=== PATIENT | female | born 1955 | race Caucasian/White ===

== ENCOUNTER 2016-11-22 06:31 | Outpatient (CLI) | payer MEDICAID, OTHER | END 2016-11-22 23:59 | DX: I10 Essential (primary) hypertension (principal); E03.9 Hypothyroidism, unspecified ==

== ENCOUNTER 2018-09-12 13:18 | Outpatient (CLI) | payer MEDICAID ==
[2018-09-12 14:17] LABS: BASOPHILS # (AUTO) 0.1 10^3/uL (0.0-0.1); BASOPHILS % (AUTO) 1.6 %; EOSINOPHILS % (AUTO) 0.4 %; HGB - HEMOGLOBIN 8.2 g/dL (12.0-16.0); LYMPHOCYTES # (AUTO) 1.2 10^3/uL (1.5-3.5); LYMPHOCYTES % (AUTO) 19.7 %; MEAN CORPUSCULAR HEMOGLOBIN 19.8 pg (27.0-31.0); MEAN CORPUSCULAR HGB CONC 29.7 g/dL (32.0-36.0); MEAN CORPUSCULAR VOLUME 66.7 fL (81.0-99.0); MEAN PLATELET VOLUME 8.3 fL (7.9-10.8); MONOCYTES # (AUTO) 0.4 10^3/uL (0.0-1.0); MONOCYTES % (AUTO) 5.8 %; NEUTROPHILS # (AUTO) 4.5 10^3/uL (1.5-6.6); NEUTROPHILS % (AUTO) 72.5 %; PLT - PLATELET COUNT 342 10^3/uL (130-450); RED BLOOD COUNT 4.15 10^6/uL (4.20-5.40); RED CELL DISTRIBUTION WIDTH 23.1 % (12.0-15.0); WHITE BLOOD COUNT 6.1 x10^3/uL (4.8-10.8)
[2018-09-12 14:32] LABS: ALBUMIN 4.1 g/dL (3.2-5.5); ALKALINE PHOSPHATASE 122 IU/L (42-121); AST ASPARTATE AMINOTRANSFERASE 28 IU/L (10-42); BUN - BLOOD UREA NITROGEN 27 mg/dL (6-20); CALCIUM 9.3 mg/dL (8.5-10.3); CARBON DIOXIDE - CO2 15 mmol/L (21-32); CHLORIDE 100 mmol/L (101-111); CREATININE 0.9 mg/dL (0.4-1.0); GFR - MDRD 63 (>89); GLUCOSE 95 mg/dL (70-100); SODIUM 133 mmol/L (135-145)
[2018-09-12 14:59] LABS: PLATELET ESTIMATE, MANUAL NORMAL (130-450,000) (NORMAL)
[2018-09-12 15:23] LABS: ALBUMIN/GLOBULIN RATIO 1.3 (1.0-2.2); ALT ALANINE AMINOTRANSFERASE 15 IU/L (10-60); CHOL/HDL RATIO 3.4 (<4.4); CHOLESTEROL 182 mg/dL; HDL CHOLESTEROL 53 mg/dL; TOTAL PROTEIN 7.3 g/dL (6.7-8.2)
[2018-09-12 15:48] LABS: LDL CHOLESTEROL,CALCULATED 105 mg/dL; VLDL CHOLESTEROL 24 mg/dL
== END 2018-09-12 13:19 | disposition home or self-care (01) ==
LOC: LAB 13:18
PROVIDERS: ATTEND Family Medicine
DX: I10 Essential (primary) hypertension (principal); E03.9 Hypothyroidism, unspecified
CPT/HCPCS: 36415; 80053; 80061; 83721; 84443; 85025

== ENCOUNTER 2018-09-30 12:03 | Outpatient (CLI) | payer MEDICAID ==
[2018-09-30] MEDS ORDERED: IOVERSOL 320 100 ML VIAL IVP ONE (12:12)
[2018-09-30] MEDS ORDERED: IOVERSOL 320 50 ML VIAL ONE (12:12)
[2018-09-30] MEDS: IOVERSOL 320 100 ML VIAL IVP ONE (15:00)
[2018-09-30] MEDS: IOVERSOL 320 50 ML VIAL PO ONE (15:01)
--- NOTE | 2018-09-30 15:08 | CT Report ---
Reason: ABDOMINAL MASS, RLQ, WILMS' TUMOR HX Procedure Date: 09/30/2018 Accession Number: [id number] / [id number] Procedure: CT - Abdomen/Pelvis W/ CPT Code: FULL RESULT: EXAM: CT ABDOMEN AND PELVIS EXAM DATE: 09/30/2018 01:56 PM. CLINICAL HISTORY: Abdominal mass, right lower quadrant, Wilms tumor history. COMPARISONS: None. TECHNIQUE: Routine helical CT imaging was performed through the abdomen and pelvis. IV contrast: 90 ML Optiray 320. Enteric contrast: Yes. Reconstructions: Coronal and sagittal. In accordance with CT protocol optimization, one or more of the following dose reduction techniques were utilized for this exam: automated exposure control, adjustment of mA and/or KV based on patient size, or use of iterative reconstructive technique. FINDINGS: Lung Bases: Unremarkable. Liver: There are innumerable hypodense masses in the liver, for example the largest mass in the right lobe measures 2.5 x 2.0 cm on image 20 series 3, and the dominant left lobe of the liver mass measures 2.1 x 1.5 cm on image 9 series 3. Gallbladder/Bile Ducts: Mild intrahepatic biliary prominence. Gallbladder is unremarkable. Spleen: Normal. Pancreas: Normal. Adrenal Glands: Normal. Kidneys: The right kidney is surgically absent. The left kidney contains a 1.0 and a 0.3 cm nonobstructing calculus. Peritoneal Cavity/Bowel: There is intussusception of an approximately 12 cm segment of likely transverse colon with the appearance of a mass as the lead point; the mass component is difficult to measure. A 1.2 x 1.2 cm enhancing pericolonic nodule trapped within the intussusception on image 12 series 5 is suspicious. There is no free fluid or free air. Pelvic Organs: The bladder is within normal limits. Vasculature: Mild atherosclerotic disease without aneurysm. Bones: Severe levoconvex scoliosis of the lumbar spine centered about L2. A dextroconvex thoracic scoliosis is not fully imaged. No aggressive osseous lesions are identified. Other: None. IMPRESSION: Long segment colonic intussusception likely due to underlying mass as a lead point with innumerable hepatic metastases. RADIA The above findings with colonic intussusception likely due to mass with hepatic metastases were discussed with Janessa Link by Dr. Tom William at 02:53 PM hrs on 09/30/2018.
== END 2018-09-30 12:04 | disposition home or self-care (01) ==
LOC: DI 12:03
PROVIDERS: ATTEND Family Medicine
DX: C78.7 Secondary malignant neoplasm of liver and intrahepatic bile duct (principal); K56.1 Intussusception; C64.9 Malignant neoplasm of unspecified kidney, except renal pelvis; D64.9 Anemia, unspecified
CPT/HCPCS: 74177; Q9967

== ENCOUNTER 2018-10-14 10:46 | Inpatient (IN) | payer MEDICAID ==
--- NOTE | 2018-10-14 11:52 | ED Physician Documentation ---
PD HPI NVD - Stated complaint Stated Complaint: V/D - Chief complaint Chief Complaint: Abd Pain - History obtained from History obtained from: Patient - History of Present Illness Timing - onset: How many days ago (4) Timing - duration: Days (4) Timing - details: Gradual onset (She had bowel surgery last week with bowel resection for colon cancer. She is discharged from the hospital on Saturday which is 4 days ago. Since discharge she has had a feeling of bloating of the abdomen and fullness with nausea and episodic vomiting. She states she has had some soft stools at times. She did not notice any blood in her vomit or her diarrhea. She is having increasing abdominal fullness. She denies any fever. She called the surgery office and was directed to the ER. Surgery was done by Dr. Yip.), Still present Associated symptoms: Abdominal pain, Loss of appetite. No: Fever, Chest pain, Hematemesis, Melena, Near syncope / syncope, Dysuria Contributing factors: No: Sick contact, Bad food Improved by: Vomiting Worsened by: Eating Recently seen: Surgery (bowel resection last week for colon cancer. Discharged 4 days ago.) Review of Systems Constitutional: reports: Myalgias. denies: Fever, Chills Nose: denies: Rhinorrhea / runny nose, Congestion Throat: denies: Sore throat Respiratory: denies: Cough GI: reports: Abdominal Pain, Abdominal Swelling, Nausea, Vomiting, Diarrhea (some soft stools since discharge.). denies: Constipation, Hematemesis, Bloody / black stool : denies: Dysuria, Frequency Skin: denies: Rash Neurologic: reports: Generalized weakness. denies: Focal weakness, Numbness, Near syncope PD PAST MEDICAL HISTORY - Past Medical History Cardiovascular: Murmur Respiratory: None Neuro: None Endocrine/Autoimmune: None GI: Other (IBS) : Other (hx of Wilms Tumor) HEENT: None Psych: Anxiety, Claustrophobia Musculoskeletal: Scoliosis Derm: None - Past Surgical History General: Appendectomy, Other - Present Medications Home Medications: Ambulatory Orders Medication Instructions Recorded Confirmed Aspirin [Aspirin EC] 81 mg PO DAILY #30 tablet. 10/10/18 10/14/18 Cyclobenzaprine [Flexeril] 10 mg PO TID PRN #90 tablet 10/10/18 10/14/18 Ferrous Sulfate 325 mg PO BID #60 tablet 10/10/18 10/14/18 Ibuprofen [Motrin] 600 mg PO Q6HR PRN #40 tablet 10/10/18 10/14/18 Loratadine 10 mg PO DAILY PRN #30 capsule 10/10/18 10/14/18 Pantoprazole [Protonix] 40 mg PO QDAC #30 tablet 10/10/18 10/14/18 Potassium Chloride [K-Dur] 20 meq PO DAILYWM #30 tablet 10/10/18 10/14/18 - Allergies Allergies/Adverse Reactions: Allergies Allergy/AdvReac Type Severity Reaction Status Date / Time Sulfa (Sulfonamide Allergy Rash Verified 10/14/18 10:58 Antibiotics) - Social History Does the pt smoke?: No Smoking Status: Former smoker - POLST Patient has POLST: No POLST Status: Full Code PD ED PE NORMAL - Vitals Vital signs reviewed: Yes - General General: Alert and oriented X 3, Well developed/nourished, Other (appears uncomfortable with pain. ) - HEENT HEENT: EOMI (nonicteric), Ears normal, Pharynx benign - Neck Neck: Supple, no meningeal sign, No adenopathy, No JVD - Cardiac Cardiac: RRR (tachycardic), No murmur - Respiratory Respiratory: Clear bilaterally - Abdomen Abdomen: Soft, Other (mild to moderate distension mid abd. Dullness to percussion. Generally tender but most lower abd. ). No: Normal bowel sounds (diminished) - Female Female : Deferred - Rectal Rectal: Deferred - Back Back: No CVA TTP - Derm Derm: Normal color, Warm and dry - Extremities Extremities: No tenderness to palpate, Normal ROM s pain, No edema, No calf tenderness / cord - Neuro Neuro: Alert and oriented X 3, No motor deficit, Normal speech Results - Vitals Vitals: Vital Signs - 24 hr 10/14/18 10/14/18 10:53 15:02 Temperature 36.7 C Heart Rate 106 H 84 Respiratory 18 12 Rate Blood Pressure 159/75 H 183/102 H O2 Saturation 98 100 Oxygen O2 Source Room air - Labs Labs: Laboratory Tests 10/14/18 10/14/18 13:10 13:39 WBC 12.1 H RBC 4.34 Hgb 11.1 L Hct 33.7 L MCV 77.5 L MCH 25.5 L MCHC 32.9 RDW 29.5 H Plt Count 200 MPV 8.5 Neut # (Auto) Not Reportable Lymph # (Auto) Not Reportable [place] # (Auto) Not Reportable Eos # (Auto) Not Reportable Baso # (Auto) Not Reportable Absolute Nucleated RBC Not Reportable Total Counted 100 Band Neuts % (Manual) 5 Abnorm Lymph % (Manual) 0 Nucleated RBC % Not Reportable Neutrophils # (Manual) 10.5 H Lymphocytes # (Manual) 1.2 L Monocytes # (Manual) 0.4 Eosinophils # (Manual) 0.0 Basophils # (Manual) 0.0 Differential Comment MANUAL DIFFERENTIAL WBC Morphology 1+ VACUOLATION RBC Morph Micro Appear 1+ POLYCHROMASIA Sodium 135 Potassium 2.6 L Chloride 99 L Carbon Dioxide 23 Anion Gap 13.0 BUN 20 Creatinine 0.7 Estimated GFR (MDRD) 85 L Glucose 108 H Calcium 8.2 L Magnesium 1.5 L Total Bilirubin 1.8 H AST 20 ALT 37 Alkaline Phosphatase 242 H Total Protein 5.1 L Albumin 2.0 L Globulin 3.1 Albumin/Globulin Ratio 0.6 L Lipase 21 L - Rads (name of study) abd/pelvic CT Radiology: Prelim report reviewed, Discussed with rads (Moderate amount of free fluid and also free air noted. It seems more than expected this timing postoperatively. There is dilated stomach and upper small bowel with a transition in the mid bowel consistent with either an ileus or partial bowel obstruction..) PD MEDICAL DECISION MAKING - ED course Complexity details: reviewed results, re-evaluated patient, considered differential (Consider postop infection or an anastomotic leak versus bowel obstruction and ileus. Will obtain labs and give IV fluids and medications meanwhile. She does seem likely dehydrated given the scenario.), d/w patient, d/w dairy nutrition consultant (I talked with 's office who had done her surgery. He did feel there should not be free air still at this point in not that amount of free fluid. He asked that the patient be admitted to the hospitalist service and he will consult or the surgical service will consult. He has if they are able to get a ultrasound-guided paracentesis through radiology in order to get some of the abdominal fluid out as an assessment for ascites or clear fluid versus leaking anastomosis. Given the concurrence with free air, more likely explanation is an anastomotic leak. The patient does not look septic which is good.) Departure - Departure Disposition: 66 [facility] DC/Xfer Clinical Impression: Post-operative state, Nausea & vomiting, Partial bowel obstruction, Postoperative leak, Dehydration Condition: Stable
[2018-10-14] MEDS ORDERED: ONDANSETRON 4 MG/2 ML VIAL IVP STA (12:12)
[2018-10-14] MEDS ORDERED: SODIUM CHLORIDE 0.9% 1,000 ML IV ONE ×2 (12:12→12:13)
[2018-10-14] MEDS ORDERED: KETOROLAC 15 MG/ML VIAL IVP STA (12:12)
[2018-10-14] MEDS ORDERED: ACETAMINOPHEN 1,000 MG/100 ML 100 ML IV STA (12:13)
[2018-10-14] MEDS ORDERED: IOVERSOL 320 100 ML VIAL IVP ONE ×3 (13:09→14:33)
[2018-10-14 13:39] LABS: ALBUMIN/GLOBULIN RATIO 0.6 (1.0-2.2); BILIRUBIN,TOTAL 1.8 mg/dL (0.2-1.0); CALCIUM 8.2 mg/dL (8.5-10.3); CREATININE 0.7 mg/dL (0.4-1.0); MAGNESIUM 1.5 mg/dL (1.7-2.8); TOTAL PROTEIN 5.1 g/dL (6.7-8.2)
[2018-10-14 13:45] LABS: HGB - HEMOGLOBIN 11.1 g/dL (12.0-16.0); LYMPHOCYTES % (AUTO) 5.9 %; MEAN CORPUSCULAR HEMOGLOBIN 25.5 pg (27.0-31.0); MEAN CORPUSCULAR HGB CONC 32.9 g/dL (32.0-36.0); MEAN CORPUSCULAR VOLUME 77.5 fL (81.0-99.0); MEAN PLATELET VOLUME 8.5 fL (7.9-10.8); MONOCYTES % (AUTO) 5.3 %; NEUTROPHILS % (AUTO) 88.8 %; PLT - PLATELET COUNT 200 10^3/uL (130-450); RED BLOOD COUNT 4.34 10^6/uL (4.20-5.40); RED CELL DISTRIBUTION WIDTH 29.5 % (12.0-15.0); WHITE BLOOD COUNT 12.1 x10^3/uL (4.8-10.8)
[2018-10-14 13:46] LABS: ABNORMAL LYMPHS % (MANUAL) 0 %
[2018-10-14 14:10] LABS: BAND NEUTROPHILS % (MANUAL) 5 %; LYMPHOCYTES # (MANUAL) 1.2 10^3/uL (1.5-3.5); LYMPHOCYTES % (MANUAL) 10 %; MONOCYTES # (MANUAL) 0.4 10^3/uL (0.0-1.0); NEUTROPHILS # (MANUAL) 10.5 10^3/uL (1.5-6.6); NEUTROPHILS % (MANUAL) 82 %
[2018-10-14 14:14] LABS: DIFFERENTIAL COMMENT MANUAL DIFFERENTIAL
--- NOTE | 2018-10-14 14:32 | CT Report ---
Reason: 1 week post op abd surgery; pain and vomiting Procedure Date: 10/14/2018 Accession Number: [id number] / [id number] Procedure: CT - Abdomen/Pelvis W/ CPT Code: FULL RESULT: EXAM: CT ABDOMEN AND PELVIS EXAM DATE: 10/14/2018 02:08 PM. CLINICAL HISTORY: 1 week post op abd surgery; pain and vomiting. COMPARISONS: ABDOMEN/PELVIS W/ 10/05/2018 5:04 PM. TECHNIQUE: Routine helical CT imaging was performed through the abdomen and pelvis. IV contrast: 80 mL Optiray 320. Enteric contrast: No. Reconstructions: Coronal and sagittal. In accordance with CT protocol optimization, one or more of the following dose reduction techniques were utilized for this exam: automated exposure control, adjustment of mA and/or KV based on patient size, or use of iterative reconstructive technique. FINDINGS: Lung Bases: Trace bilateral pleural effusions. Liver: Again seen are multiple hypodense masses throughout the liver. Gallbladder/Bile Ducts: The gallbladder is partially contracted. Hyperdense material near the gallbladder neck may represent small layering stones. Spleen: Unremarkable. Pancreas: Unremarkable. Adrenal Glands: Unremarkable. Kidneys: Surgical absence of the right kidney. Duplicated left renal collecting system. Multiple small nonobstructing stones in the upper pole moiety. Mild dilation of the upper pole moiety collecting system, similar to a prior exam. Peritoneal Cavity/Bowel: The stomach is distended with nonspecific fluid. There are multiple mildly dilated, fluid-filled loops of duodenum and jejunum, which gradually tapered to decompressed small bowel in the right lower abdominal quadrant (image 35 of series 3). Interval postoperative changes from right hemicolectomy with anastomosis involving the ileum and remaining transverse colon (image 43 of series 3). There is a moderate to large volume of ascites mostly in the lower abdomen and pelvis. Scattered foci of free intraperitoneal air throughout the abdomen. Pelvic Organs: The urinary bladder is moderately distended and otherwise unremarkable. The uterus and ovaries appear unremarkable by CT. Vasculature: Calcified plaque scattered throughout the abdominal aorta and iliac arteries without evidence of aneurysm. Bones: The bones are osteopenic. Redemonstrated significant levoconvex scoliotic curvature of the lumbar spine. Bilateral pars interarticularis defects at L5 with grade 1 anterolisthesis measuring approximately 9 mm. Mild to moderate multilevel degenerative facet arthropathy. Disk space narrowing at L5-S1. Other: Diffuse body wall edema. Anterior midline surgical hermila. IMPRESSION: Interval postoperative changes from right hemicolectomy. New moderate/large volume ascites and scattered pneumoperitoneum could be at least partially related to recent operation. Integrity of the enterocolic anastomosis could be evaluated with water-soluble contrast enema as clinically warranted. Mildly dilated small bowel loops, which gradually taper to normal caliber bowel in the right lower abdominal quadrant, which may represent a developing small bowel obstruction versus postoperative ileus. Redemonstrated hypodense masses throughout the liver, likely metastases. Generalized anasarca and trace bilateral pleural effusion. Possible cholelithiasis. The gallbladder is partially contracted and otherwise limited in evaluation. Surgical absence of the right kidney. Duplicated left renal collecting system. Mild dilation of the upper pole moiety collecting system, similar to the prior exam. RADIA The call report notification system was initiated by Dr. Gregorio Bray at 02:23 PM on 10/14/2018. The above findings were discussed with Willam Fritz by Dr. Gregorio Bray at 02:25 PM on 10/14/2018.
[2018-10-14] MEDS ORDERED: AMPICILLIN/SULBACTAM 1.5 GM in SODIUM CHLORIDE 0.9% MINIBAG 100 ML IV STA (15:28)
[2018-10-14] MEDS ORDERED: ONDANSETRON 4 MG/2 ML VIAL IVP PRN (15:47)
[2018-10-14] MEDS ORDERED: PROCHLORPERAZINE 10 MG/2 ML VIAL IVP PRN (15:47)
[2018-10-14] MEDS ORDERED: HYDROmorphone 0.5 MG/0.5 ML SYRINGE IVP PRN (15:47)
[2018-10-14] MEDS ORDERED: POTASSIUM CHLOR 10 MEQ/100 ML 10 MEQ/100 ML BAG IV ONE (16:09)
[2018-10-14] MEDS ORDERED: BUPIVACAINE 0.25%-EPI 1:200000 PF 30 ML VIAL ONE (16:12)
--- NOTE | 2018-10-14 16:35 | CONSULTATION NOTE ---
Referring Provider Name of Referring Provider:: Dr. Willam Fritz Consult Date: 10/14/18 Chief Complaint - Chief Complaint Chief Complaint: Abdominal distention - bloating sensation History of Present Illness - Admitted From Admitted From:: [facility] ED - History Obtained From Records Reviewed: Yes History obtained from: Patient and daughter Toma Exam Limitations: None - History of Present Illness HPI Comment/Other: This very pleasant 63-year-old female was just recently operated on by me after she had a colonic obstruction due to the intussusception of small bowel into the right side of the colon as a result of an adenocarcinoma of the colon. She was recently sent home on Saturday tolerating a general diet. She was ambulating. Her pain was well controlled. The patient stated that she did not have much to eat in the past 16 hours and felt bloated. She states that she had a normal bowel movement this morning. She has some generalized abdominal pain without any point tenderness. Going over bumps in the road did not hurt her. The CT scan that have been ordered by Dr. Willam Fritz showed free fluid and air that cannot be comfortably explained by her recent operation. History - Past Medical History Cardiovascular: reports: Murmur Respiratory: reports: None Neuro: reports: None Endocrine/Autoimmune: reports: None GI: reports: Other (IBS) [employer] INSPECTOR: reports: Other : reports: Other (hx of Wilms Tumor) HEENT: reports: None Psych: reports: Anxiety, Claustrophobia Musculoskeletal: reports: Scoliosis Derm: reports: None MRSA Hx?: No - Past Surgical History General: reports: Appendectomy, Other - Family & Social History Family History: Mother: (RA/ pneumonia), Father: , Cancer Family History Comment/Other: father: from stomach cancer. mother: rheumatoid arthritis, kidney disease. sister1: scoliosis. sister2: scoliosis - Substance History Use: Uses substance without health or social issues: Tobacco (recently quit in June) - POLST Patient has POLST: No POLST Status: Full Code Meds/Allgy - Home Medications Home Medications: Ambulatory Orders Medication Instructions Recorded Confirmed Aspirin [Aspirin EC] 81 mg PO DAILY #30 tablet. 10/10/18 10/14/18 Cyclobenzaprine [Flexeril] 10 mg PO TID PRN #90 tablet 10/10/18 10/14/18 Ferrous Sulfate 325 mg PO BID #60 tablet 10/10/18 10/14/18 Ibuprofen [Motrin] 600 mg PO Q6HR PRN #40 tablet 10/10/18 10/14/18 Loratadine 10 mg PO DAILY PRN #30 capsule 10/10/18 10/14/18 Omeprazole 20 mg PO DAILY 10/14/18 10/14/18 Potassium Chloride 20 meq PO DAILY 10/14/18 10/14/18 - Allergies Allergies/Adverse Reactions: Allergies Allergy/AdvReac Type Severity Reaction Status Date / Time Sulfa (Sulfonamide Allergy Rash Verified 10/14/18 10:58 Antibiotics) Review of Systems - Constitutional Constitutional: reports: Fatigue, Weakness, Weight loss - Eyes Eyes: denies: Pain, Blurred vision - Ears, Nose & Throat Ears, Nose & Throat: denies: Ear pain - Cardiovascular Cariovascular: denies: Irregular heart rate, Chest pain - Respiratory Respiratory: denies: Cough, Sputum production - Gastrointestinal Gastrointestinal: reports: Abdominal pain (Minimal.), Abdominal distention (Some with bloating.). denies: Rectal bleeding, Black stools, Bloody stools, Nausea, Vomiting, Bile emesis, Brayden blood emesis, Coffee grounds emesis, Reflux/heartburn - Genitourinary Genitourinary: denies: Dysuria - Musculoskeletal Musculoskeletal: denies: Muscle pain, Back pain - Neurological Neurological: reports: General weakness - Psychiatric Psychiatric: reports: Anxiety (She states that her panic attacks are coming back.) - Hematologic/Lymphatic Hematologic/Lymphatic: denies: Anemia, Bruising Exam - Vital Signs Reviewed Vital Signs: Yes Vital Signs: Vital Signs x48h Temp Pulse Resp BP Pulse Ox 10/14/18 15:02 84 12 183/102 H 100 10/14/18 10:53 36.7 C 106 H 18 159/75 H 98 - Physical Exam General Appearance: positive: No acute distress (Evaluated in room 9 at [facility]'s emergency department.) Eyes Bilateral: positive: No lid inflammation, Conjunctivae nml, No scleral icterus ENT: positive: Dry mucous membranes (Very very dry.) Neck: positive: Trachea midline Respiratory: positive: Chest non-tender, No respiratory distress, Breath sounds nml Cardiovascular: positive: Regular rate & rhythm Abdomen: positive: Non-tender, No organomegaly, Nml bowel sounds, Other (Slightly doughy abdomen.) Skin: positive: Color nml, Pallor Extremities: positive: Non-tender, Nml appearance Neurologic/Psychiatric: positive: Oriented x3, Motor nml, Sensation nml, Mood/affect nml Conclusion/Plan - Diagnosis Diagnosis: Free air and fluid in the abdomen than I cannot comfortably explain in a patient this far out from her surgery. My concern is even higher co nsidering her level of malnutrition. - Plan Plan: Exploratory laparotomy with possible ileostomy, possible placement of drain, possible bowel resection. I explained that my concern for her malnutrition and her current status would not allow me to wait to see whether or not she got better. The patient stated that she does not wish to have an ostomy but I ex plained to her that the clinical circumstances may not allow for this. I explained that if it is safer to give her an ileostomy or colostomy than that is exactly what she will have. She vocalized an understanding and a reluctant agreement. Both the patient and her daughter, Emily, are in agreement with the current plan. Verbal and written consent was obtained. I asked the patient and her daughter to please let us know if there is any way we can make her stay at [facility] more comfortable. Teds and Venodyne's will be placed for prophylaxis against deep venous thrombosis. Surgical antibiotics to be given for prophylaxis against surgical infection. Postoperatively hyperalimentation will likely be required to counteract her level of malnutrition and this was discussed with the patient as well. I explained in no uncertain terms that she would not be allowed to eat until we see evidence of bowel function. [employer] disclaimer: This document was created in part using voice recognition technology. Because of the inherent limitations of the system ([employer]'s [employer] user manual states that the licensee understands that speech recognition is a statistical pr ocess and that recognition errors are inherent in the process), occasional same sounding word substitutions and grammatical errors do occur and persist despite proofreading. Please read this document for context. - Lab Results Lab results reviewed: Yes Fish Bones: 10/14/18 13:39 10/14/18 13:10 - Diagnostic Imaging Results Diagnostic Imaging Results: positive: Final report reviewed, Read independently
[2018-10-14] MEDS ORDERED: LACTATED RINGERS 1,000 ML IV ONE ×4 (17:00→18:45)
--- NOTE | 2018-10-14 17:00 | ANESTHESIA ---
Pre-Anesthesia VS, & Labs - Diagnosis Diagnosis Free air and fluid in the abdomen than I cannot comfortably explain in a patient this far out from her surgery. My concern is even higher considering her level of malnutrition. suspected anastomotic leak - Procedure exploratory laparotomy Vital Signs: Temp Pulse Resp BP Pulse Ox 36.7 C 84 12 183/102 H 100 10/14/18 10:53 10/14/18 15:02 10/14/18 15:02 10/14/18 15:02 10/14/18 15:02 Height 5 ft 1 in Weight (kg) 39.916 kg Body Mass Index 16.6 - NPO >8 hours - Is Patient ?: No - Lab Results Current Lab Results: Laboratory Tests 10/14/18 14:22: Lactic Acid 1.1 10/14/18 13:39: WBC 12.1 H, RBC 4.34, Hgb 11.1 L, Hct 33.7 L, MCV 77.5 L, MCH 25.5 L, MCHC 32.9, RDW 29.5 H, Plt Count 200, MPV 8.5, Neut # (Auto) Not Reportable, Lymph # (Auto) Not Reportable, [place] # (Auto) Not Reportable, Eos # (Auto) Not Reportable, Baso # (Auto) Not Reportable, Absolute Nucleated RBC Not Reportable, Total Counted 100, Band Neuts % (Manual) 5, Abnorm Lymph % (Manual) 0, Nucleated RBC % Not Reportable, Neutrophils # (Manual) 10.5 H, Lymphocytes # (Manual) 1.2 L, Monocytes # (Manual) 0.4, Eosinophils # (Manual) 0.0, Basophils # (Manual) 0.0, Differential Comment MANUAL DIFFERENTIAL, WBC Morphology 1+ [place] CUOLATION, RBC Morph Micro Appear 1+ POLYCHROMASIA 10/14/18 13:10: Sodium 135, Potassium 2.6 L, Chloride 99 L, Carbon Dioxide 23, Anion Gap 13.0, BUN 20, Creatinine 0.7, Estimated GFR (MDRD) 85 L, Glucose 108 H , Calcium 8.2 L, Magnesium 1.5 L, Total Bilirubin 1.8 H, AST 20, ALT 37, [place] line Phosphatase 242 H, Total Protein 5.1 L, Albumin 2.0 L, Globulin 3.1, Albumin/Globulin Ratio 0.6 L, Lipase 21 L Fish Bones: 10/14/18 13:39 10/14/18 13:10 Home Medications and Allergies Home Medications: Ambulatory Orders Omeprazole 20 mg PO DAILY 10/14/18 Potassium Chloride 20 meq PO DAILY 10/14/18 Active Medications Hydromorphone HCl (Dilaudid Inj Syringe) 0.5 mg IVP Q2H PRN PRN Reason: Pain 8 to 10 Potassium Chloride/Dextrose/Sod Cl () 1,000 mls @ 125 mls/hr IV .Q8H FIFI Potassium Chloride (Potassium Chloride) 10 meq in 100 mls @ 100 mls/hr IV ONCE ONE Stop: 10/14/18 17:08 Famotidine (Pepcid 20 Mg/50 Ml) 50 mls @ 100 mls/hr IV DAILY FIFI Ondansetron HCl (Zofran Inj) 4 mg IVP Q6HR PRN PRN Reason: Nausea / Vomiting Polyethylene Glycol (Miralax) 17 gm PO DAILY FIFI Prochlorperazine Edisylate (Compazine Inj) 10 mg IVP Q6HR PRN PRN Reason: Nausea / Vomiting Sodium Chloride (Normal Saline Flush 0.9%) 10 ml IVP PRN PRN PRN Reason: NEEDED PER PROVIDER ORDERS Sodium Chloride (Normal Saline Flush 0.9%) 10 ml IVP 0100,0900,1700 FIFI Omeprazole 20 mg PO DAILY 10/14/18 Potassium Chloride 20 meq PO DAILY 10/14/18 Allergies/Adverse Reactions: Allergies Allergy/AdvReac Type Severity Reaction Status Date / Time Sulfa (Sulfonamide Allergy Rash Verified 10/14/18 10:58 Antibiotics) Anes History & Medical History - Anesthetic History Anesthesia Complications: reports: No previous complications - Medical History Cardiovascular: reports: Murmur Pulmonary: reports: None Gastrointestinal: reports: Other (IBS) Urinary: reports: Other (hx of Wilms Tumor) Neuro: reports: None Musculoskeletal: reports: Scoliosis Endocrine/Autoimmune: reports: None Blood Disorders: reports: None Skin: reports: None Smoking Status: Former smoker - Surgical History General: Appendectomy, Other Urologic: Nephrectomy Exam General: Oriented x3, Mild distress Dental: Poor dentition Mouth Opening: Greater than 4 Fingerbreadths Mallampati classification: II Thyromental Distance: greater than 6 cm Plan Anesthesia Type: General Consent for Procedure(s) Verified and Reviewed: Yes Code Status: Attempt Resuscitation ASA classification: 3-Severe systemic disease Is this case an emergency?: Yes
[2018-10-14] MEDS ORDERED: BUPIVACAINE 0.5% PF 30 ML VIAL ONE (18:11)
[2018-10-14] MEDS ORDERED: SUGAMMADEX 200 MG/2 ML VIAL IVP ONE (18:29)
--- NOTE | 2018-10-14 18:38 | OPERATIVE REPORT ---
Operative Report - General Admit Date: 10/14/18 Planned Procedure: Exploratory laparotomy, possible bowel resection, possible drainage, possib Pre-Op Diagnosis: Free air and fluid in patient postoperatively suspect leak Procedure Performed: Exploratory laparotomy with oversewing of descending colon and end ileostomy (takedown necrotic anastomosis) Post Op Diagnosis: Necrotic anastomosis with leak - Procedure Note Primary Surgeon: Willam Yip MD Secondary Surgeon: Iban Chang MD Anesthesia Provider: Alysia Mendoza CRNA Anesthesia Technique: General ET tube, Local (30 mL of half percent Marcaine) Pathology: Resected anastomosis sent to pathology for evaluation. IV Fluids (mL): 1,000 Estimated Blood Loss (mL): 20 Urine Output (mL): 500 Drain/Tube Type: Other (None.) Complications: None. - Other Other Information/Narrative: OPERATIVE DESCRIPTION/REPORT: After verbal and written informed consent was obtained detailing the risks of infection, bleeding requiring transfusion with its risks, nerve injury, and , and after I met with the patient confirming the surgery and the site of the surgery, the patient was brought to the operative suite and placed supine on the operating table. At the time of this discussion it was explained that free air and fluid this far out from her surgery was not normal and even though she had a paucity of symptoms considering her malnutrition I thought it prudent to operate. The patient voiced her desire to avoid either a colostomy or ileostomy but I explained that the clinical scenario would dictate whether or not she needs to have one. Great care was taken to avoid pressure points to prevent pressure necrosis or nerve injury. Monitoring devices were applied along with TEDs and pneumatic compressive stockings (to prevent DVT). The patient received preoperative antibiotics for surgical prophylaxis. Alysia Mendoza CRNA sedated and anesthetized the patient for the entire procedure. The patient was prepped and draped in the usual sterile manner. A "time in" then confirmed that the paitient was identified with 3 identifiers (name, date and medical record number), the history and physical was in the chart, the signed consent confirming the procedure was in the chart, the patient was in the correct position, the aforementioned prophylactic measures were in place or given, we had the correct personnel and equipment to complete the procedure and that anesthesia, surgery and nursing were given an opportunuty to express any concerns. With the agreement of everyone in the room, we proceeded with the operation. The previous hermila were removed and the running 0 PDS suture that was holding the fascia together was cut and removed. Upon opening the abdomen there was approximately 1 L of green succus entericus. This was removed using a Andersen sucker. The stomach was noted to be exceedingly large and the previously mentioned hepatic metastases were unchanged. The small bowel is rolled out of the patient's abdomen and the anastomosis was noted to be necrotic. None of the surrounding tissue appeared to be compromised or necrotic. The anastomosis was then taken down using Metzenbaum scissors to cut the Lembert sutures. The colon was then stapled distal to the anastomosis and the resected small piece of colon was sent to pathology for evaluation. Due to concerns that I had regarding her malnutrition and poor general state it was clear that another anastomosis in this setting was contraindicated. Additionally, performing a diverting loop ileostomy proximal to this anastomosis would not have helped. As such it was clinically prudent and indicated to perform a end ileostomy. A site was chosen on the patient's right abdomen equidistant from the anterior superior iliac spine and her ribs. The skin was cut in a circular fashion using a scalpel and the subcutaneous fat was excised using Bovie electrocautery. A linear incision was made in the anterior fascia and using my fingers to protect the underlying bowel a similarly linear incision was made in the posterior fascia and peritoneum getting entry into the abdomen. 2 Linden clamps were then placed through this opening and used to grasp the ileum and bring it up through the anterior abdominal wall. The ileum was then secured to the peritoneum using one 3-0 Vicryl suture. Great care was taken to ensure that the ileum was not twisted. The peritoneum was copiously irrigated with 4 L of warm sterile saline. The last liter had the addition of 2 g of cefoxitin. The fascia was closed using a looped PDS starting inferiorly and superiorly and running the suture to meet just above the umbilicus. The knot was dunked. The incision was injected using 30 mL of half percent Marcaine for additional help with pain control. The skin was loosely approximated using skin hermila and the wound was packed using iodoform gauze. A silver dressing was placed above this. The ileostomy was then matured using interrupted 3-0 Vicryl sutures circumferentially. Of note, the ileostomy appeared pink and perfused throughout. An ostomy appliance was placed above this. At this point a time out was performed that confirmed that all the counts were correct, the procedure that was performed, the blood loss, the urine output, the IV fluids administered, and the patients condition. Having tolerated the procedure well, the patient was subsequently extubated and taken to recovery room in good and stable condition. Dragon disclaimer: This document was created in part using voice recognition technology. Because of the inherent limitations of the system ([employer]'s Dragon Dictate user manual states that the licensee understands that speech recognition is a statistical process and that recognition errors are inherent in the process), occasional same sounding word substitutions and grammatical errors do occur and persist despite proofreading. Please read this document for context.
[2018-10-14] MEDS ORDERED: BENZOCAINE/TETRACAINE/BUTAMBEN 20 GM MM PRN (18:56)
[2018-10-14] MEDS ORDERED: PHENOL THROAT SPRAY 177 ML MM PRN (18:56)
[2018-10-14] MEDS ORDERED: fentaNYL 100 MCG/2 ML VIAL IVP ONE (19:00)
[2018-10-14] MEDS ORDERED: ROCURONIUM 50 MG/5 ML VIAL IVP ONE (19:00)
[2018-10-14] MEDS ORDERED: ACETAMINOPHEN 1,000 MG/100 ML 100 ML IV ONE (19:00)
[2018-10-14] MEDS ORDERED: LIDOCAINE-MPF 2% 5 ML VIAL IM ONE (19:00)
[2018-10-14] MEDS ORDERED: KETAMINE 500 MG/10 ML VIAL IVP ONE (19:00)
[2018-10-14] MEDS ORDERED: ONDANSETRON 4 MG/2 ML VIAL IVP ONE (19:00)
[2018-10-14] MEDS ORDERED: PROPOFOL 200 MG/20 ML VIAL IVP ONE (19:00)
[2018-10-14] MEDS ORDERED: LABETALOL 20 MG/4 ML SYRINGE IVP ONE (19:10)
[2018-10-14 19:31] LABS: CALCIUM 7.2 mg/dL (8.5-10.3); CREATININE 0.7 mg/dL (0.4-1.0)
--- NOTE | 2018-10-14 19:33 | XRAY Report ---
Reason: in PACU, placed in OR, right IJ triple lumen Procedure Date: 10/14/2018 Accession Number: [id number] / [id number] Procedure: XR - Chest for Line Placement CPT Code: FULL RESULT: EXAM: CHEST RADIOGRAPHY EXAM DATE: 10/14/2018 07:12 PM. CLINICAL HISTORY: In PACU, placed in OR, right IJ triple lumen. COMPARISON: CHEST FOR LINE PLACEMENT 10/06/2018 5:22 PM. TECHNIQUE: 1 view. FINDINGS: Lungs/Pleura: Lung volumes have decreased. There is mild basilar atelectasis. No consolidation or pneumothorax. Mediastinum: There is a right jugular central line tip at the mid to lower SVC. There is a gastric tube which is looped within the stomach. Other: Scoliotic curvature of the spine appears unchanged. IMPRESSION: 1. Right jugular central line tip at mid to lower SVC. Gastric tube looped in stomach. RADIA
[2018-10-14] MEDS: D5NS W/20 MEQ KCL 1,000 ML IV SCH (20:07)
[2018-10-14 20:34] LABS: BILIRUBIN,URINE NEGATIVE (NEGATIVE); GLUCOSE, URINE (UA) NEGATIVE (NEGATIVE); KETONES,URINE (UA) 15 mg/dL (NEGATIVE); LEUKOCYTE ESTERASE, URINE NEGATIVE (NEGATIVE); NITRITE,URINE POSITIVE (NEGATIVE); OCCULT BLOOD,URINE TRACE-INTA (NEGATIVE); PROTEIN,URINE NEGATIVE (NEGATIVE); UROBILINOGEN,URINE 0.2 (NORMAL) E.U./dL (NORMAL)
[2018-10-14 20:41] LABS: BACTERIA,URINE Rare /HPF (None Seen); CLARITY,URINE CLEAR (CLEAR); RBC,URINE 0-5 /HPF (0-5); SQUAMOUS EPITHELIAL CELL,UR NONE SEEN (<= Few)
[2018-10-14] MEDS ORDERED: FAMOTIDINE 20 MG/50 ML 50 ML IV SCH (21:00)
[2018-10-14] MEDS: HYDROmorphone 0.5 MG/0.5 ML SYRINGE IVP PRN (21:06)
[2018-10-14] MEDS: POTASSIUM CHLOR 10 MEQ/100 ML 10 MEQ/100 ML BAG IV SCH ×3 (21:23→23:24)
[2018-10-14] MEDS: ACETAMINOPHEN 1,000 MG/100 ML 100 ML IV SCH (21:29)
[2018-10-14] MEDS: SODIUM CHLORIDE FLUSH 0.9% 10 ML SYRINGE IVP SCH (21:37)
--- NOTE | 2018-10-14 22:44 | HISTORY & PHYSICAL EXAMINATION ---
Chief Complaint - Chief Complaint Chief Complaint: bloating, nausea and vomiting History of Present Illness - Admitted From Admitted From:: [facility] ED - History of Present Illness HPI Comment/Other: Patient is a 63 y/o female who presented to the ED today with complain of nausea, vomiting and feeling bloated. She is post op day 8 from previous surgery. She had initially presented on 10/05/[address] with abdominal pain and CT of the abdomen had revealed an abdominal mass and liver lesions suspicious for metastasis. She underwent right and transverse colectomy with reanastomosis and liver biopsy. Pathology on the abdominal mass and liver biopsies has since shown that it is metastatic colorectal adenocarcinoma. She was discharged home 10/10/18 from that visit. Repeat CT scan of abdomen/pelvis today revealed new moderate/large volume ascites and scattered pneumoperitoneum. At bedside patient is currently post op she appears to be resting comfortably. She is drowsy but readily arousable to verbal stimuli. She rates her pain 0/10. She has an NG-tube in place with minimal output so far. A colostomy bag is in place. There is about 50ml of serosanguinous drainage in the bag. She was initially cold but reports feeling better since a K-pad was placed over her. She denies any other complains History - Past Medical History Cardiovascular: reports: Murmur Respiratory: reports: None Neuro: reports: None Endocrine/Autoimmune: reports: None GI: reports: Other (, Metastatic colorectal adenocarcinoma) [employer]: reports: Other : reports: Other (hx of Wilms Tumor) HEENT: reports: None Psych: reports: Anxiety, Claustrophobia Musculoskeletal: reports: Scoliosis Derm: reports: None MRSA Hx?: No - Past Surgical History General: reports: Appendectomy, Other (right and transverse colectomy) - Family & Social History Family History: Mother: (RA/ pneumonia), Father: , Cancer Family History Comment/Other: father: from stomach cancer. mother: rheumatoid arthritis, kidney disease. sister1: scoliosis. sister2: scoliosis - Substance History Use: Uses substance without health or social issues: Tobacco (recently quit in June) - POLST Patient has POLST: No POLST Status: Full Code Meds/Allgy - Home Medications Home Medications: Ambulatory Orders Medication Instructions Recorded Confirmed Aspirin [Aspirin EC] 81 mg PO DAILY #30 tablet. 10/10/18 10/14/18 Cyclobenzaprine [Flexeril] 10 mg PO TID PRN #90 tablet 10/10/18 10/14/18 Ferrous Sulfate 325 mg PO BID #60 tablet 10/10/18 10/14/18 Ibuprofen [Motrin] 600 mg PO Q6HR PRN #40 tablet 10/10/18 10/14/18 Loratadine 10 mg PO DAILY PRN #30 capsule 10/10/18 10/14/18 Omeprazole 20 mg PO DAILY 10/14/18 10/14/18 Potassium Chloride 20 meq PO DAILY 10/14/18 10/14/18 - Allergies Allergies/Adverse Reactions: Allergies Allergy/AdvReac Type Severity Reaction Status Date / Time Sulfa (Sulfonamide Allergy Rash Verified 10/14/18 10:58 Antibiotics) Review of Systems - Constitutional Constitutional: reports: Fatigue, Poor appetite - Eyes Eyes: denies: Pain, Blurred vision, Vision loss, Dipolpia - Ears, Nose & Throat Ears, Nose & Throat: denies: Ear pain, Nasal discharge, Sore throat - Cardiovascular Cariovascular: reports: Edema. denies: Irregular heart rate, Chest pain - Respiratory Respiratory: denies: Cough, Wheezing, Hemoptysis, SOB at rest - Gastrointestinal Gastrointestinal: reports: Nausea, Vomiting, Bloating. denies: Abdominal pain - Genitourinary Genitourinary: denies: Dysuria, Frequency, Urgency, Hematuria - Musculoskeletal Musculoskeletal: reports: Back pain - Integumentary Integumentary: denies: Rash, Pruritis, Dryness - Neurological Neurological: denies: General weakness, Focal weakness, Headache - Psychiatric Psychiatric: denies: Depression, Anxiety Prior Level of Functionality: Weakness from persists. Exam - Vital Signs Vital Signs: Vital Signs x48h Temp Pulse Pulse Resp BP BP Pulse Ox 10/14/18 21:00 76 15 178/90 H 100 10/14/18 20:45 36.3 C L 71 13 176/89 H 100 10/14/18 20:16 36.4 C L 68 10 L 165/81 H 100 10/14/18 19:58 36.1 C L 72 12 177/91 H 100 10/14/18 19:45 36.1 C L 77 12 177/91 H 100 10/14/18 19:30 74 17 176/93 H 100 10/14/18 19:20 36.1 C L 75 16 168/93 H 100 10/14/18 19:15 36.1 C L 77 15 152/92 H 100 10/14/18 19:05 36.1 C L 78 16 201/106 H 100 10/14/18 18:55 107 H 10 L 190/101 H 100 10/14/18 18:50 36.0 C L 108 H 17 181/89 H 100 10/14/18 18:45 36.0 C L 112 H 10 L 185/92 H 100 10/14/18 15:02 84 12 183/102 H 100 - Physical Exam General Appearance: positive: No acute distress, Alert Eyes Bilateral: positive: Normal inspection ENT: positive: ENT inspection nml Neck: positive: Nml inspection, No JVD, Trachea midline Respiratory: positive: Chest non-tender, No respiratory distress, Breath sounds nml Cardiovascular: positive: Regular rate & rhythm Abdomen: positive: Non-tender, Other (surgical site appreciable colostomy bag in place decreased bowel sounds no guarding or tenderness) Extremities: positive: Pedal edema Neurologic/Psychiatric: positive: Oriented x3 Conclusion/Plan - Problem List (1) Postoperative leak Conclusion/Plan: This is believed to be likely due to her poor nutritionl status. Patient was immediately taken to the OR from the ED. She underwent an Exploratory laparotomy with oversewing of descending colon and end ileostomy (takedown necrotic anastomosis) NG tube is in place. She was started on Zosyn. And admitted to the ICU by General Surgery. General Surgery took over management as the primary team with medicine to follow for medical management (2) Adenocarcinoma of colon metastatic to liver Conclusion/Plan: s/p resection of mass with reanastomosis Followed by revision of surgical site due to anastomosis necrosis and post op leak When patient recovers/ stable from surgery, Will address next level of care. There is a scheduled follow up with [facility] in 2-3 weeks (3) Electrolyte imbalance Conclusion/Plan: Patient receive 3 riders of 10 mEq potassium chloride 20 mEq potassium added to normal saline continuously infusing Will recheck and replace as indicated. Will also recheck and replace Magnesium Electrolyte protocol ordered (4) Anemia Conclusion/Plan: Acute on Chronic Improved/ Stable s/p transfusion of PRBC during last admission Likey 2/2 malignancy and iron deficiency Will continue to monitor. if needed will transfuse PRBC. Resume iron supplement when able to - Lab Results Lab results reviewed: Yes Fish Bones: 10/14/18 13:39 10/14/18 19:17 Core Measures - Anticipated LOS I expect patient to be DC'd or transferred within 96 hours.: Yes - DVT/VTE - Prophylaxis VTE/DVT Device ordered at admit?: Yes VTE/DVT Prophylaxis med ordered at admit?: No Not Ordered - Medical Reason: Contraindicated (patient is just s/p surgery)
[2018-10-15] MEDS: ACETAMINOPHEN 1,000 MG/100 ML 100 ML IV SCH ×4 (02:31→20:11)
[2018-10-15] MEDS: PIPERACILLIN/TAZOBACTAM 3.375 GM in SODIUM CHLORIDE 0.9% MINIBAG 100 ML IV SCH ×4 (02:32→15:44)
[2018-10-15] MEDS: SODIUM CHLORIDE FLUSH 0.9% 10 ML SYRINGE IVP SCH ×6 (02:48→15:49)
[2018-10-15] MEDS ORDERED: MAGNESIUM SULFATE 2 GRAM 50 ML IV ONE (03:54)
[2018-10-15] MEDS ORDERED: POTASSIUM PHOSPHATE 15 MMOL in SODIUM CHLORIDE 0.9% 250 ML IV ONE ×2 (03:54→09:30)
[2018-10-15] MEDS ORDERED: POTASSIUM PHOSPHATE 21 MMOL in SODIUM CHLORIDE 0.9% 250 ML IV ONE (03:54)
[2018-10-15] MEDS ORDERED: CALCIUM GLUCONATE 1,000 MG in SODIUM CHLORIDE 0.9% 50 ML IV ONE ×4 (03:54)
[2018-10-15] MEDS ORDERED: POTASSIUM CHLOR 20 MEQ/100 ML 20 MEQ/100 ML BAG IV SCH ×2 (04:00)
[2018-10-15] MEDS ORDERED: POTASSIUM PHOSPHATE 15 MMOL in SODIUM CHLORIDE 0.9% 250 ML IV SCH (04:00)
[2018-10-15] MEDS ORDERED: POTASSIUM CHLOR 10 MEQ/100 ML 10 MEQ/100 ML BAG IV SCH (04:00)
[2018-10-15] MEDS ORDERED: MAGNESIUM SULFATE 2 GRAM 50 ML IV SCH (04:00)
[2018-10-15] MEDS: D5NS W/20 MEQ KCL 1,000 ML IV SCH ×3 (04:08→20:10)
[2018-10-15 05:30] LABS: ALBUMIN 1.4 g/dL (3.2-5.5); ALBUMIN/GLOBULIN RATIO 0.6 (1.0-2.2); BILIRUBIN,TOTAL 2.4 mg/dL (0.2-1.0); CALCIUM 7.1 mg/dL (8.5-10.3); CREATININE 0.6 mg/dL (0.4-1.0); TOTAL PROTEIN 3.9 g/dL (6.7-8.2)
[2018-10-15 05:44] LABS: EOSINOPHILS % (AUTO) 0.1 %; HGB - HEMOGLOBIN 10.7 g/dL (12.0-16.0); LYMPHOCYTES # (AUTO) 0.8 10^3/uL (1.5-3.5); LYMPHOCYTES % (AUTO) 7.8 %; MEAN CORPUSCULAR HEMOGLOBIN 25.3 pg (27.0-31.0); MEAN CORPUSCULAR HGB CONC 32.1 g/dL (32.0-36.0); MEAN CORPUSCULAR VOLUME 78.9 fL (81.0-99.0); MEAN PLATELET VOLUME 8.4 fL (7.9-10.8); MONOCYTES # (AUTO) 0.2 10^3/uL (0.0-1.0); MONOCYTES % (AUTO) 2.4 %; NEUTROPHILS # (AUTO) 8.7 10^3/uL (1.5-6.6); NEUTROPHILS % (AUTO) 89.7 %; PLT - PLATELET COUNT 163 10^3/uL (130-450); RED BLOOD COUNT 4.22 10^6/uL (4.20-5.40); RED CELL DISTRIBUTION WIDTH 29.9 % (12.0-15.0); WHITE BLOOD COUNT 9.7 x10^3/uL (4.8-10.8)
[2018-10-15 06:11] LABS: PLATELET ESTIMATE, MANUAL NORMAL (130-450,000) (NORMAL)
[2018-10-15] MEDS ORDERED: PANTOPRAZOLE 40 MG VIAL IVP SCH (07:00)
--- NOTE | 2018-10-15 07:52 | PROVIDER PROGRESS NOTE ---
Subjective - General Admit Date: 10/14/18 Procedure Date: 10/14/18 Post Op Days: 6 Procedure Performed: Exploratory laparotomy with takedown necrotic anastamosis, end ileostomy - Review of Systems Wound/Incisions: positive: Dressing dry and intact Drain Type: None. General: positive: No symptoms HEENT: positive: No symptoms Pulmonary: positive: No symptoms Cardiovascular: positive: No symptoms Gastrointestinal: positive: No symptoms Genitourinary: positive: No symptoms Musculoskeletal: positive: No symptoms Skin: positive: No symptoms Psychiatric: positive: No symptoms Objective - Patient Data Reviewed Vital Signs: Yes Vital Signs: Vital Signs x48h Temp Pulse Resp BP Pulse Ox 10/15/18 07:48 37.2 C 90 12 170/79 H 99 10/15/18 07:00 96 10 L 158/81 H 98 10/15/18 06:00 90 12 152/87 H 98 10/15/18 05:00 85 30 H 145/74 H 93 10/15/18 04:00 36 C L 91 9 L 133/73 H 98 10/15/18 03:00 93 10 L 128/71 98 10/15/18 02:00 92 14 142/75 H 98 10/15/18 01:00 92 12 134/76 H 99 10/15/18 00:00 36.7 C 90 10 L 124/78 100 Weight: Weight 10/13/18 10/14/18 10/15/18 23:59 23:59 23:59 Weight (kg) 48.5 kg 51 kg Intake & Output: Intake and Output Totals x24h 10/13/18 10/14/18 10/15/18 23:59 23:59 23:59 Intake Total 2867.084 1515.833 Output Total 160 355 Balance 2707.084 1160.833 - Lab Results Lab Results: 10/18/18 04:45 10/18/18 04:45 Other Lab Results: Lab Results x24hrs 10/15/18 10/15/18 10/14/18 Range/Units 05:00 05:00 20:00 WBC 9.7 (4.8-10.8) x10^3/uL RBC 4.22 (4.20-5.40) 10^6/uL Hgb 10.7 L (12.0-16.0) g/dL Hct 33.3 L (37.0-47.0) % MCV 78.9 L (81.0-99.0) fL MCH 25.3 L (27.0-31.0) pg MCHC 32.1 (32.0-36.0) g/dL RDW 29.9 H (12.0-15.0) % Plt Count 163 (130-450) 10^3/uL MPV 8.4 (7.9-10.8) fL Neut # (Auto) 8.7 H Lymph # (Auto) 0.8 L Dickens # (Auto) 0.2 Eos # (Auto) 0.0 Baso # (Auto) 0.0 Absolute Nucleated RBC 0.00 Total Counted Band Neuts % (Manual) (0 - 10) % Abnorm Lymph % (Manual) % Nucleated RBC % 0.0 Neutrophils # (Manual) (1.5-6.6) 10^3/uL Lymphocytes # (Manual) (1.5-3.5) 10^3/uL Monocytes # (Manual) (0.0-1.0) 10^3/uL Eosinophils # (Manual) (0-0.7) 10^3/uL Basophils # (Manual) (0-0.1) 10^3/uL Differential Comment Manual Slide Review Indicated WBC Morphology (NORMAL) Platelet Estimate NORMAL (130-450,000) (NORMAL) RBC Morph Micro Appear 1+ HYPOCHROMASIA (NORMAL) Sodium 134 L (135-145) mmol/L Potassium 3.5 (3.5-5.0) mmol/L Chloride 104 (101-111) mmol/L Carbon Dioxide 22 (21-32) mmol/L Anion Gap 8.0 (6-13) BUN 13 (6-20) mg/dL Creatinine 0.6 (0.4-1.0) mg/dL Estimated GFR (MDRD) 101 (>89) Glucose 231 H (70-100) mg/dL Lactic Acid (0.5-2.2) mmol/L Calcium 7.1 L (8.5-10.3) mg/dL Magnesium (1.7-2.8) mg/dL Total Bilirubin 2.4 H (0.2-1.0) mg/dL AST 27 (10-42) IU/L ALT 27 (10-60) IU/L Alkaline Phosphatase 156 H (42-121) IU/L Total Protein 3.9 L (6.7-8.2) g/dL Albumin 1.4 L (3.2-5.5) g/dL Globulin 2.5 (2.1-4.2) g/dL Albumin/Globulin Ratio 0.6 L (1.0-2.2) Lipase (22-51) U/L Urine Color YELLOW Urine Clarity CLEAR (CLEAR) Urine pH 6.0 (5.0-7.5) PH Ur Specific Brooks 1.015 (1.002-1.030) Urine Protein NEGATIVE (NEGATIVE) mg/dL Urine Glucose (UA) NEGATIVE (NEGATIVE) mg/dL Urine Ketones 15 H (NEGATIVE) mg/dL Urine Occult Blood TRACE-INTA (NEGATIVE) Urine Nitrite POSITIVE H (NEGATIVE) Urine Bilirubin NEGATIVE (NEGATIVE) Urine Urobilinogen 0.2 (NORMAL) (NORMAL) E.U./dL Ur Leukocyte Esterase NEGATIVE (NEGATIVE) Urine RBC 0-5 (0-5) /HPF Urine WBC 0-3 (0-5) /HPF Ur Squamous Epith Cells NONE SEEN (<= Few) Urine Bacteria Rare (None Seen) /HPF Ur Microscopic Review INDICATED Urine Culture Comments INDICATED MRSA Surveill Initial (NEGATIVE) 10/14/18 10/14/18 10/14/18 Range/Units 20:00 19:17 14:22 WBC (4.8-10.8) x10^3/uL RBC (4.20-5.40) 10^6/uL Hgb (12.0-16.0) g/dL Hct (37.0-47.0) % MCV (81.0-99.0) fL MCH (27.0-31.0) pg MCHC (32.0-36.0) g/dL RDW (12.0-15.0) % Plt Count (130-450) 10^3/uL MPV (7.9-10.8) fL Neut # (Auto) Lymph # (Auto) Dickens # (Auto) Eos # (Auto) Baso # (Auto) Absolute Nucleated RBC Total Counted Band Neuts % (Manual) (0 - 10) % Abnorm Lymph % (Manual) % Nucleated RBC % Neutrophils # (Manual) (1.5-6.6) 10^3/uL Lymphocytes # (Manual) (1.5-3.5) 10^3/uL Monocytes # (Manual) (0.0-1.0) 10^3/uL Eosinophils # (Manual) (0-0.7) 10^3/uL Basophils # (Manual) (0-0.1) 10^3/uL Differential Comment Manual Slide Review WBC Morphology (NORMAL) Platelet Estimate (NORMAL) RBC Morph Micro Appear (NORMAL) Sodium 132 L (135-145) mmol/L Potassium 3.3 L (3.5-5.0) mmol/L Chloride 104 (101-111) mmol/L Carbon Dioxide 18 L (21-32) mmol/L Anion Gap 10.0 (6-13) BUN 14 (6-20) mg/dL Creatinine 0.7 (0.4-1.0) mg/dL Estimated GFR (MDRD) 85 L (>89) Glucose 99 (70-100) mg/dL Lactic Acid 1.1 (0.5-2.2) mmol/L Calcium 7.2 L (8.5-10.3) mg/dL Magnesium (1.7-2.8) mg/dL Total Bilirubin (0.2-1.0) mg/dL AST (10-42) IU/L ALT (10-60) IU/L Alkaline Phosphatase (42-121) IU/L Total Protein (6.7-8.2) g/dL Albumin (3.2-5.5) g/dL Globulin (2.1-4.2) g/dL Albumin/Globulin Ratio (1.0-2.2) Lipase (22-51) U/L Urine Color Urine Clarity (CLEAR) Urine pH (5.0-7.5) PH Ur Specific Brooks (1.002-1.030) Urine Protein (NEGATIVE) mg/dL Urine Glucose (UA) (NEGATIVE) mg/dL Urine Ketones (NEGATIVE) mg/dL Urine Occult Blood (NEGATIVE) Urine Nitrite (NEGATIVE) Urine Bilirubin (NEGATIVE) Urine Urobilinogen (NORMAL) E.U./dL Ur Leukocyte Esterase (NEGATIVE) Urine RBC (0-5) /HPF Urine WBC (0-5) /HPF Ur Squamous Epith Cells (<= Few) Urine Bacteria (None Seen) /HPF Ur Microscopic Review Urine Culture Comments MRSA Surveill Initial NEGATIVE (NEGATIVE) 10/14/18 10/14/18 Range/Units 13:39 13:10 WBC 12.1 H (4.8-10.8) x10^3/uL RBC 4.34 (4.20-5.40) 10^6/uL Hgb 11.1 L (12.0-16.0) g/dL Hct 33.7 L (37.0-47.0) % MCV 77.5 L (81.0-99.0) fL MCH 25.5 L (27.0-31.0) pg MCHC 32.9 (32.0-36.0) g/dL RDW 29.5 H (12.0-15.0) % Plt Count 200 (130-450) 10^3/uL MPV 8.5 (7.9-10.8) fL Neut # (Auto) Not Reportable Lymph # (Auto) Not Reportable Dickens # (Auto) Not Reportable Eos # (Auto) Not Reportable Baso # (Auto) Not Reportable Absolute Nucleated RBC Not Reportable Total Counted 100 Band Neuts % (Manual) 5 (0 - 10) % Abnorm Lymph % (Manual) 0 % Nucleated RBC % Not Reportable Neutrophils # (Manual) 10.5 H (1.5-6.6) 10^3/uL Lymphocytes # (Manual) 1.2 L (1.5-3.5) 10^3/uL Monocytes # (Manual) 0.4 (0.0-1.0) 10^3/uL Eosinophils # (Manual) 0.0 (0-0.7) 10^3/uL Basophils # (Manual) 0.0 (0-0.1) 10^3/uL Differential Comment MANUAL DIFFERENTIAL Manual Slide Review WBC Morphology 1+ VACUOLATION (NORMAL) Platelet Estimate (NORMAL) RBC Morph Micro Appear 1+ POLYCHROMASIA (NORMAL) Sodium 135 (135-145) mmol/L Potassium 2.6 L (3.5-5.0) mmol/L Chloride 99 L (101-111) mmol/L Carbon Dioxide 23 (21-32) mmol/L Anion Gap 13.0 (6-13) BUN 20 (6-20) mg/dL Creatinine 0.7 (0.4-1.0) mg/dL Estimated GFR (MDRD) 85 L (>89) Glucose 108 H (70-100) mg/dL Lactic Acid (0.5-2.2) mmol/L Calcium 8.2 L (8.5-10.3) mg/dL Magnesium 1.5 L (1.7-2.8) mg/dL Total Bilirubin 1.8 H (0.2-1.0) mg/dL AST 20 (10-42) IU/L ALT 37 (10-60) IU/L Alkaline Phosphatase 242 H (42-121) IU/L Total Protein 5.1 L (6.7-8.2) g/dL Albumin 2.0 L (3.2-5.5) g/dL Globulin 3.1 (2.1-4.2) g/dL Albumin/Globulin Ratio 0.6 L (1.0-2.2) Lipase 21 L (22-51) U/L Urine Color Urine Clarity (CLEAR) Urine pH (5.0-7.5) PH Ur Specific Brooks (1.002-1.030) Urine Protein (NEGATIVE) mg/dL Urine Glucose (UA) (NEGATIVE) mg/dL Urine Ketones (NEGATIVE) mg/dL Urine Occult Blood (NEGATIVE) Urine Nitrite (NEGATIVE) Urine Bilirubin (NEGATIVE) Urine Urobilinogen (NORMAL) E.U./dL Ur Leukocyte Esterase (NEGATIVE) Urine RBC (0-5) /HPF Urine WBC (0-5) /HPF Ur Squamous Epith Cells (<= Few) Urine Bacteria (None Seen) /HPF Ur Microscopic Review Urine Culture Comments MRSA Surveill Initial (NEGATIVE) - Current Medications Current Medications: Current Medications Generic Name Dose Route Start Last Admin Trade Name Freq PRN Reason Stop Dose Admin Hydromorphone HCl 0.5 mg 10/14/18 18:56 10/14/18 21:06 Dilaudid Inj Syringe IVP 0.5 mg Q2H PRN Administration PAIN Potassium Chloride/Dextrose/Sod Cl 1,000 mls @ 125 mls/hr 10/14/18 16:00 10/15/18 07:47 IV 125 mls/hr .Q8H FIFI Infusion Acetaminophen 100 mls @ 400 mls/hr 10/14/18 19:00 10/15/18 02:47 Ofirmev IV Infused Q6H FIFI Infusion Piperacillin Sod/Tazobactam 100 mls @ 200 mls/hr 10/15/18 00:00 10/15/18 07:19 Sod 3.375 gm/ Sodium Chloride IV 10/20/18 23:59 200 mls/hr Q6HR FIFI Administration Pantoprazole Sodium 40 mg 10/15/18 07:00 10/15/18 07:03 Protonix IVP 40 mg QDAC FIFI Administration Sodium Chloride 10 ml 10/14/18 17:00 10/15/18 02:48 Normal Saline Flush 0.9% IVP 10 ml 0100,0900,1700 FIFI Administration Sodium Chloride 10 ml 10/15/18 01:00 10/15/18 05:40 Normal Saline Flush 0.9% IVP 10 ml 0100,0900,1700 FIFI Administration - Physical Exam Wound/Incisions: positive: Dressing dry and intact, Other (Ostomy pink.) General Appearance: positive: No acute distress Eyes Bilateral: positive: No lid inflammation, Conjunctivae nml, No scleral icterus ENT: positive: Dry mucous membranes Neck: positive: Trachea midline Respiratory: positive: Chest non-tender, No respiratory distress, Breath sounds nml Cardiovascular: positive: Regular rate & rhythm Extremities: positive: Nml appearance Neurologic/Psychiatric: positive: Oriented x3, Motor nml, Sensation nml, Mood/affect nml ABX Reporting Has patient been on IV antibiotics over the past 48 hours?: Yes Impression/Plan - Problem List Problem List: D1 s/p exploratory laparotomy with takedown of necrotic anastamosis 1) FEN Nutrition on the case. Aggressive feeding required will start TPN. Preoperative 40 pound weight loss and advanced stage of cancer likely resulting in poor healing. Will need to turn this around if there is any meaningful hope at extending patient's life. 2) Stage IV colon cancer with liver metsatases Formally consult Palliative Care. If patient improves consider palliative chemotherapy. Discussed with patient. 3) Activity Increase as much as tolerated.
[2018-10-15] MEDS: SODIUM CHLORIDE FLUSH 0.9% 10 ML SYRINGE IVP PRN ×6 (08:01→18:41)
[2018-10-15 08:17] LABS: MAGNESIUM 1.1 mg/dL (1.7-2.8); PHOSPHORUS 1.7 mg/dL (2.5-4.6)
[2018-10-15] MEDS: FAMOTIDINE 20 MG/50 ML 50 ML IV SCH (09:56)
[2018-10-15] MEDS: MAGNESIUM SULFATE 2 GRAM 2 GM/50 ML BAG IV SCH ×2 (10:16→11:36)
[2018-10-15] MEDS: POLYETHYLENE GLYCOL 3350 17 GM PACKET PO SCH (10:17)
[2018-10-15] MEDS: MIN OIL/DIMETHICON/COCONUT OIL 92 GM TUBE TOP PRN ×2 (13:33→16:58)
[2018-10-15] MEDS ORDERED: diazePAM 5 MG TABLET PO PRN (14:09)
[2018-10-15] MEDS ORDERED: LORazepam 2 MG/ML VIAL IVP PRN (14:13)
--- NOTE | 2018-10-15 14:17 | CONSULTATION NOTE ---
Referring Provider Name of Referring Provider:: Phi Consult Date: 10/15/18 History of Present Illness - Admitted From Admitted From:: ER - History of Present Illness HPI Comment/Other: Pt admitted from ER with N/V and bloating and imaging showed abd fluid and air, approx 8 days from abd surgery. She was taken to the OR for exploratory surgery and had peritonitis with a leak of an anastamosis site. She is in ICU and now on Surgical service. Hospitalist service will now be consultants. History - Past Medical History Cardiovascular: reports: Murmur Respiratory: reports: None Neuro: reports: None Endocrine/Autoimmune: reports: None GI: reports: Other (, Metastatic colorectal adenocarcinoma) CONTRACT PARALEGAL: reports: Other : reports: Other (hx of Wilms Tumor) HEENT: reports: None Psych: reports: Anxiety, Claustrophobia Musculoskeletal: reports: Scoliosis Derm: reports: None MRSA Hx?: No - Past Surgical History General: reports: Appendectomy, Other (right and transverse colectomy) - Family & Social History Family History: Mother: (RA/ pneumonia), Father: , Cancer Family History Comment/Other: father: from stomach cancer. mother: rheumatoid arthritis, kidney disease. sister1: scoliosis. sister2: scoliosis - Substance History Use: Uses substance without health or social issues: Tobacco (recently quit in June) - POLST Patient has POLST: No POLST Status: Full Code Meds/Allgy - Home Medications Home Medications: Ambulatory Orders Medication Instructions Recorded Confirmed Aspirin [Aspirin EC] 81 mg PO DAILY #30 tablet. 10/10/18 10/14/18 Cyclobenzaprine [Flexeril] 10 mg PO TID PRN #90 tablet 10/10/18 10/14/18 Ferrous Sulfate 325 mg PO BID #60 tablet 10/10/18 10/14/18 Ibuprofen [Motrin] 600 mg PO Q6HR PRN #40 tablet 10/10/18 10/14/18 Loratadine 10 mg PO DAILY PRN #30 capsule 10/10/18 10/14/18 Omeprazole 20 mg PO DAILY 10/14/18 10/14/18 Potassium Chloride 20 meq PO DAILY 10/14/18 10/14/18 - Allergies Allergies/Adverse Reactions: Allergies Allergy/AdvReac Type Severity Reaction Status Date / Time Sulfa (Sulfonamide Allergy Rash Verified 10/14/18 10:58 Antibiotics) Exam - Vital Signs Vital Signs: Vital Signs x48h Temp Pulse Resp BP Pulse Ox 10/15/18 13:00 84 21 187/92 H 100 10/15/18 12:00 85 15 191/84 H 100 10/15/18 11:00 75 32 H 120/64 92 10/15/18 10:00 87 15 195/93 H 100 10/15/18 07:48 37.2 C 90 12 170/79 H 99 10/15/18 07:00 96 10 L 158/81 H 98 - Physical Exam General Appearance: positive: No acute distress ENT: positive: Dry mucous membranes, Other (ng tube to suction) Neck: positive: Nml inspection Respiratory: positive: No respiratory distress, Breath sounds nml Cardiovascular: positive: Regular rate & rhythm, No murmur Abdomen: positive: No distention, Other (Soft, no bowel sounds) Extremities: positive: No pedal edema Conclusion/Plan - Diagnosis Diagnosis: HTN. Anxiety with Hx of panic attacks. 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 - Plan Plan: I discussed management of her HTN and anxiety with patient and daughter in the room. She was on Lisinopril for BP in the past but it was stopped due to orthostasis causing syncopal episodes. She was on Valium prn and another anxiolytic, but both were stopped because she was able to do breathing exercises to control her anxiety. Since she does feel anxious and like her panic attacks could be coming, I will start with management of anxiety with low doses of iv Ativan, and if that does not help control the BP, then will add iv Hydralazine for HTN management. I discussed this plan with the patient who agrees. - Lab Results Lab results reviewed: Yes Fish Bones: 10/15/18 05:00 10/15/18 05:00
[2018-10-15] MEDS ORDERED: hydrALAZINE INJ 20 MG/ML VIAL IVP PRN (16:59)
[2018-10-15] MEDS: FAT EMULSION 20% 250 ML IV SCH (18:36)
[2018-10-15] MEDS ORDERED: TPN (CLINIMIX E 5/15) 2,000 ML with MULTIVITAMIN 10 ML, TRACE ELEMENTS V CONC 1 ML IV SCH ×3 (19:00)
[2018-10-15] MEDS: HYDROmorphone 0.5 MG/0.5 ML SYRINGE IVP PRN (20:12)
[2018-10-16] MEDS: PIPERACILLIN/TAZOBACTAM 3.375 GM in SODIUM CHLORIDE 0.9% MINIBAG 100 ML IV SCH ×4 (00:22→23:59)
[2018-10-16] MEDS: ACETAMINOPHEN 1,000 MG/100 ML 100 ML IV SCH (02:45)
[2018-10-16] MEDS: SODIUM CHLORIDE FLUSH 0.9% 10 ML SYRINGE IVP SCH ×5 (03:00→23:59)
[2018-10-16] MEDS: D5NS W/20 MEQ KCL 1,000 ML IV SCH ×3 (04:33→22:28)
[2018-10-16] MEDS: HYDROmorphone 0.5 MG/0.5 ML SYRINGE IVP PRN ×2 (04:40→13:27)
[2018-10-16 04:55] LABS: BASOPHILS % (AUTO) 0.2 %; EOSINOPHILS # (AUTO) 0.1 10^3/uL (0.0-0.7); EOSINOPHILS % (AUTO) 0.7 %; HGB - HEMOGLOBIN 11.6 g/dL (12.0-16.0); LYMPHOCYTES % (AUTO) 7.5 %; MEAN CORPUSCULAR HEMOGLOBIN 25.8 pg (27.0-31.0); MEAN CORPUSCULAR HGB CONC 32.8 g/dL (32.0-36.0); MEAN CORPUSCULAR VOLUME 78.6 fL (81.0-99.0); MEAN PLATELET VOLUME 8.8 fL (7.9-10.8); MONOCYTES # (AUTO) 0.2 10^3/uL (0.0-1.0); MONOCYTES % (AUTO) 1.2 %; NEUTROPHILS # (AUTO) 11.8 10^3/uL (1.5-6.6); NEUTROPHILS % (AUTO) 90.4 %; PLT - PLATELET COUNT 113 10^3/uL (130-450); RED CELL DISTRIBUTION WIDTH 29.7 % (12.0-15.0); WHITE BLOOD COUNT 13.1 x10^3/uL (4.8-10.8)
[2018-10-16 05:09] LABS: ALBUMIN 1.3 g/dL (3.2-5.5); ALBUMIN/GLOBULIN RATIO 0.5 (1.0-2.2); BILIRUBIN,TOTAL 3.1 mg/dL (0.2-1.0); CREATININE 0.6 mg/dL (0.4-1.0); MAGNESIUM 1.7 mg/dL (1.7-2.8); PHOSPHORUS 2.1 mg/dL (2.5-4.6); TOTAL PROTEIN 3.7 g/dL (6.7-8.2)
[2018-10-16 06:39] LABS: PT - PROTHROMBIN TIME 63.7 secs (9.9-12.6)
[2018-10-16 06:42] LABS: INR 5.7 (0.8-1.2)
[2018-10-16 06:56] LABS: PLATELET ESTIMATE, MANUAL DECREASED (<130,000) (NORMAL)
[2018-10-16] MEDS: FAMOTIDINE 20 MG/50 ML 50 ML IV SCH (09:03)
--- NOTE | 2018-10-16 09:06 | PROVIDER PROGRESS NOTE ---
Assessment/Plan - Problem List (1) Liver failure, acute Qualifiers: Hepatic coma status: without hepatic coma Qualified Code(s): K72.00 - Acute and subacute hepatic failure without coma Assessment/Plan: Patient is less alert but not in a coma. Her serum Acetominophen level was very elevated today. The anesthesia record does not show any hypotension, to suggest shock liver. Will obtain CT abdomen to eval for other etiology: Portal Vein thrombosis, intestinal necrosis, pancreatitis. Will order a Hepatitis panel. Will decrease the tpn rate by half (since the new carbs and protein may have been excessive for her liver to metabolize). Avoid hepatotoxins, as such the Acetominophen has been stopped. New information that was obtained today from [facility] [employer], Dali Akhtar was that the patient used to be an alcoholic and had poor nutrition. Follow LFTs and INR daily. If she has bleeding, she will need FFP. Remain in ICU. (2) Hyperglycemia Assessment/Plan: The last few days her glu checks have been >150, approx. since the tpn was started. Will decrease her carb load by changing to iv ppn (advised by Education DirectorRoxane). (3) E. coli UTI (urinary tract infection) Assessment/Plan: Urine culture shows E coli growth, sensitivities to follow. Patient has been on empiric Pip/Tazo iv for the peritonitis, found at exploratory lap. That should be covering E. coli, bernardo will adjust antibiotic if needed, once the sensitivities are available. (4) Malignant cachexia Assessment/Plan: This was seen before the first abdominal surgery on last admission. She was started on peripheral nutrition yesterday by the surgeon. New information that was obtained today from [facility], Dali Akhtar was that the patient used to be an alcoholic and had poor nutrition. (5) Adenocarcinoma of colon metastatic to liver Assessment/Plan: Stage 4 cancer has been quoted. She is to start being seen in [facility] here after [facility]. Palliative Care has started to work with patient as well. (6) Postoperative leak Assessment/Plan: She is POD #2 after repair of anastomotic leak and an end ileostomy. NG still in place. CT imaging of abdomen and pelvis ordered for today. (7) HTN (hypertension) Assessment/Plan: Today her BP is running Hypotensive. Will stop the parenteral BP meds. Check a lactic acid level for possible sepsis and septic shock. (8) Anxiety Assessment/Plan: She is more fatigued appearing today. This may be from hepatotoxicity or the new anxiolytics. Will decrease her Ativan. - Current Meds Current Meds: Current Medications Generic Name Dose Route Start Last Admin Trade Name Freq PRN Reason Stop Dose Admin Hydromorphone HCl 0.5 mg 10/14/18 18:56 10/16/18 04:40 Dilaudid Inj Syringe IVP 0.5 mg Q2H PRN Administration PAIN Potassium Chloride/Dextrose/Sod Cl 1,000 mls @ 125 mls/hr 10/14/18 16:00 10/16/18 09:00 IV 125 mls/hr .Q8H FIFI Infusion Famotidine 50 mls @ 100 mls/hr 10/15/18 09:00 10/16/18 09:03 Pepcid 20 Mg/50 Ml IV 100 mls/hr DAILY FIFI Administration Piperacillin Sod/Tazobactam 100 mls @ 25 mls/hr 10/15/18 16:00 10/16/18 08:50 Sod 3.375 gm/ Sodium Chloride IV 10/20/18 23:59 25 mls/hr Q8H FIFI Administration Multivitamins 10 ml/ Chromium/ 2,011 mls @ 83.792 mls/hr 10/15/18 19:00 10/16/18 00:00 Copper/Manganese/Seleni/Zn 1 IV 83.792 mls/hr ml/ Amino Ac/Electrol/Dextrose 1900 FIFI Infusion /Calcium Fat Emulsion Intravenous 250 mls @ 21 mls/hr 10/15/18 19:00 10/16/18 06:47 Intralipid 20% IV Infused 1900 FIFI Infusion Lorazepam 0.25 mg 10/15/18 14:13 10/15/18 16:37 Ativan Inj (Vial) IVP 0.25 mg Q8H PRN Administration Anxiety Mineral Oil 1 applic 10/15/18 11:41 10/15/18 16:58 Cavilon TOP 1 applic PRN PRN Administration Skin Care Polyethylene Glycol 17 gm 10/15/18 09:00 10/15/18 10:17 Miralax PO Not Given DAILY FIFI Sodium Chloride 10 ml 10/14/18 15:47 10/15/18 18:41 Normal Saline Flush 0.9% IVP 10 ml PRN PRN Administration NEEDED PER PROVIDER ORDERS Sodium Chloride 10 ml 10/14/18 17:00 10/16/18 03:00 Normal Saline Flush 0.9% IVP 10 ml 0100,0900,1700 FIFI Administration Sodium Chloride 10 ml 10/15/18 01:00 10/16/18 03:01 Normal Saline Flush 0.9% IVP Not Given 0100,0900,1700 FIFI Sodium Chloride 10 ml 10/14/18 18:47 10/15/18 16:40 Normal Saline Flush 0.9% IVP 10 ml PRN PRN Administration NEEDED PER PROVIDER ORDERS - Lab Result Fish Bone Diagrams: 10/16/18 04:25 10/16/18 04:25 - Additional Planning My Orders: My Active Orders 10/15/18 09:00 Famotidine 20 mg/50 ml [Pepcid 20 mg/50 ml] 50 ml IV DAILY Polyethylene Glycol 3350 [Miralax] 17 gm PO DAILY 10/15/18 11:41 Min Oil/Dimeth/Coconut Oil Crm [Cavilon] 1 applic TOP PRN PRN 10/15/18 14:13 LORazepam INJ [Ativan Inj (Vial)] 0.25 mg IVP Q8H PRN 10/15/18 16:59 hydrALAZINE INJ [Apresoline Inj] 10 mg IVP TID PRN 10/16/18 HEPATITIS ACUTE PANEL W CONF [REFLAB] Urgent 10/16/18 09:00 Abdomen/Pelvis W/WO [CT] Routine Subjective - Subjective Patient Reports: Fatigue, Other (Feels more tired and has mild LLQ pain, no gas or BMs.) Objective Vital Signs: Vital Signs - 24 hr 10/15/18 10/15/18 10/15/18 10:00 11:00 12:00 Temperature Heart Rate Heart Rate [ Activity] Heart Rate [ 87 75 85 Brachial] Heart Rate [ Sitting] Respiratory 15 32 H 15 Rate Blood Pressure [Activity] Blood Pressure 195/93 H 120/64 191/84 H [Left Brachial artery] Blood Pressure [Sitting] Blood Pressure [Supine] O2 Saturation 100 92 100 10/15/18 10/15/18 10/15/18 13:00 14:00 15:00 Temperature Heart Rate Heart Rate [ Activity] Heart Rate [ 84 89 83 Brachial] Heart Rate [ Sitting] Respiratory 21 14 18 Rate Blood Pressure [Activity] Blood Pressure 187/92 H 193/98 H 180/88 H [Left Brachial artery] Blood Pressure [Sitting] Blood Pressure [Supine] O2 Saturation 100 100 100 10/15/18 10/15/18 10/15/18 15:50 16:00 17:08 Temperature 36.4 C L Heart Rate Heart Rate [ 79 Activity] Heart Rate [ 81 86 Brachial] Heart Rate [ 82 Sitting] Respiratory 18 12 Rate Blood Pressure 137/91 H [Activity] Blood Pressure 137/91 H 170/94 H [Left Brachial artery] Blood Pressure 179/92 H [Sitting] Blood Pressure 180/80 H [Supine] O2 Saturation 100 100 10/15/18 10/15/18 10/15/18 18:00 19:00 20:00 Temperature 36.4 C L 36.6 C Heart Rate Heart Rate [ Activity] Heart Rate [ 84 79 85 Brachial] Heart Rate [ Sitting] Respiratory 18 18 18 Rate Blood Pressure [Activity] Blood Pressure 166/85 H 177/83 H 170/86 H [Left Brachial artery] Blood Pressure [Sitting] Blood Pressure [Supine] O2 Saturation 100 100 100 10/15/18 10/15/18 10/15/18 21:00 22:00 23:00 Temperature Heart Rate Heart Rate [ Activity] Heart Rate [ 112 H 98 97 Brachial] Heart Rate [ Sitting] Respiratory 18 16 18 Rate Blood Pressure [Activity] Blood Pressure 161/87 H 152/87 H 151/76 H [Left Brachial artery] Blood Pressure [Sitting] Blood Pressure [Supine] O2 Saturation 96 100 100 10/16/18 10/16/18 10/16/18 00:00 01:00 02:00 Temperature 37.0 C Heart Rate Heart Rate [ Activity] Heart Rate [ 102 H 100 100 Brachial] Heart Rate [ Sitting] Respiratory 9 L 9 L 8 L Rate Blood Pressure [Activity] Blood Pressure 152/81 H 148/80 H 136/76 H [Left Brachial artery] Blood Pressure [Sitting] Blood Pressure [Supine] O2 Saturation 100 100 100 10/16/18 10/16/18 10/16/18 03:00 04:00 04:32 Temperature 36.3 C L Heart Rate 88 Heart Rate [ Activity] Heart Rate [ 101 H 96 Brachial] Heart Rate [ Sitting] Respiratory 9 L 10 L 13 Rate Blood Pressure [Activity] Blood Pressure 138/75 H 134/76 H [Left Brachial artery] Blood Pressure [Sitting] Blood Pressure [Supine] O2 Saturation 100 100 100 10/16/18 10/16/18 10/16/18 05:00 06:00 07:00 Temperature Heart Rate Heart Rate [ Activity] Heart Rate [ 106 H 119 H 114 H Brachial] Heart Rate [ Sitting] Respiratory 7 L 15 10 L Rate Blood Pressure [Activity] Blood Pressure 114/67 114/83 H 96/61 [Left Brachial artery] Blood Pressure [Sitting] Blood Pressure [Supine] O2 Saturation 99 100 100 10/16/18 08:00 Temperature 36.5 C Heart Rate Heart Rate [ Activity] Heart Rate [ 110 H Brachial] Heart Rate [ Sitting] Respiratory 8 L Rate Blood Pressure [Activity] Blood Pressure 96/64 [Left Brachial artery] Blood Pressure [Sitting] Blood Pressure [Supine] O2 Saturation 100 Oxygen O2 Source Nasal cannula I&O (Last 24 Hrs): Intake and Output Totals x24h 10/14/18 10/15/18 10/16/18 23:59 23:59 23:59 Intake Total 2867.084 4131.416 2578.727 Output Total 160 2065 950 Balance 2707.084 2066.416 1628.727 General: Mild distress HEENT: Mucous membr. moist/pink, Other (Poor dentition. She is icteric today.) Neck: No JVD, Other (Has R sided jugular CVP triple lumen line) Neuro: Non Focal, Other (Generalized weakness.) Cardiovascular: Regular rate, No murmurs Respiratory: No respiratory distress, Breath sounds nml Abdomen: Soft, Other (No bowel sounds) Extremities: No edema - Results Results: Laboratory Results WBC 13.1 x10^3/uL (4.8-10.8) H 10/16/18 04:25 RBC 4.50 10^6/uL (4.20-5.40) 10/16/18 04:25 Hgb 11.6 g/dL (12.0-16.0) L 10/16/18 04:25 Hct 35.4 % (37.0-47.0) L 10/16/18 04:25 MCV 78.6 fL (81.0-99.0) L 10/16/18 04:25 MCH 25.8 pg (27.0-31.0) L 10/16/18 04:25 MCHC 32.8 g/dL (32.0-36.0) 10/16/18 04:25 RDW 29.7 % (12.0-15.0) H 10/16/18 04:25 Plt Count 113 10^3/uL (130-450) L 10/16/18 04:25 MPV 8.8 fL (7.9-10.8) 10/16/18 04:25 Neut # (Auto) 11.8 10^3/uL (1.5-6.6) H 10/16/18 04:25 Lymph # (Auto) 1.0 10^3/uL (1.5-3.5) L 10/16/18 04:25 [place]ell # (Auto) 0.2 10^3/uL (0.0-1.0) 10/16/18 04:25 Eos # (Auto) 0.1 10^3/uL (0.0-0.7) 10/16/18 04:25 Baso # (Auto) 0.0 10^3/uL (0.0-0.1) 10/16/18 04:25 Absolute Nucleated RBC 0.00 x10^3/uL 10/16/18 04:25 Total Counted 100 10/14/18 13:39 Band Neuts % (Manual) 5 % (0-10) 10/14/18 13:39 Abnorm Lymph % (Manual) 0 % 10/14/18 13:39 Nucleated RBC % 0.0 /100WBC 10/16/18 04:25 Neutrophils # (Manual) 10.5 10^3/uL (1.5-6.6) H 10/14/18 13:39 Lymphocytes # (Manual) 1.2 10^3/uL (1.5-3.5) L 10/14/18 13:39 Monocytes # (Manual) 0.4 10^3/uL (0.0-1.0) 10/14/18 13:39 Eosinophils # (Manual) 0.0 10^3/uL (0-0.7) 10/14/18 13:39 Basophils # (Manual) 0.0 10^3/uL (0-0.1) 10/14/18 13:39 Differential Comment MANUAL DIFFERENTIAL 10/14/18 13:39 Manual Slide Review Indicated 10/16/18 04:25 WBC Morphology 1+ VACUOLATION (NORMAL) 10/14/18 13:39 Platelet Estimate DECREASED (<130,000) (NORMAL) 10/16/18 04:25 RBC Morph Micro Appear 2+ TARGET CELLS (NORMAL) 3+ HYPOCHROMASIA (NORMAL) 1+ OVALOCYTES (NORMAL) 3+ ANISOCYTOSIS (NORMAL) 1+ POLYCHROMASIA (NORMAL) 10/14/18 13:39 RBC Morph Micro Appear 2+ TARGET CELLS (NORMAL) 3+ HYPOCHROMASIA (NORMAL) 1+ OVALOCYTES (NORMAL) 3+ ANISOCYTOSIS (NORMAL) 1+ POLYCHROMASIA (NORMAL) 10/14/18 13:39 RBC Morph Micro Appear 2+ TARGET CELLS (NORMAL) 3+ HYPOCHROMASIA (NORMAL) 1+ OVALOCYTES (NORMAL) 3+ ANISOCYTOSIS (NORMAL) 1+ POLYCHROMASIA (NORMAL) 10/14/18 13:39 RBC Morph Micro Appear 2+ ANISOCYTOSIS (NORMAL) 1+ MICROCYTOSIS (NORMAL) 1+ HYPOCHROMASIA (NORMAL) 10/15/18 05:00 RBC Morph Micro Appear 2+ ANISOCYTOSIS (NORMAL) 1+ MICROCYTOSIS (NORMAL) 1+ HYPOCHROMASIA (NORMAL) 10/15/18 05:00 RBC Morph Micro Appear 2+ ANISOCYTOSIS (NORMAL) 1+ MICROCYTOSIS (NORMAL) 1+ HYPOCHROMASIA (NORMAL) 10/15/18 05:00 RBC Morph Micro Appear 2+ ANISOCYTOSIS (NORMAL) 1+ HYPOCHROMASIA (NORMAL) 1+ MICROCYTOSIS (NORMAL) 10/16/18 04:25 RBC Morph Micro Appear 2+ ANISOCYTOSIS (NORMAL) 1+ HYPOCHROMASIA (NORMAL) 1+ MICROCYTOSIS (NORMAL) 10/16/18 04:25 RBC Morph Micro Appear 2+ ANISOCYTOSIS (NORMAL) 1+ HYPOCHROMASIA (NORMAL) 1+ MICROCYTOSIS (NORMAL) 10/16/18 04:25 PT 63.7 secs (9.9-12.6) H 10/16/18 06:10 INR 5.7 (0.8-1.2) H* 10/16/18 06:10 Sodium 133 mmol/L (135-145) L 10/16/18 04:25 Potassium 3.5 mmol/L (3.5-5.0) 10/16/18 04:25 Chloride 108 mmol/L (101-111) 10/16/18 04:25 Carbon Dioxide 19 mmol/L (21-32) L 10/16/18 04:25 Anion Gap 6.0 (6-13) 10/16/18 04:25 BUN 9 mg/dL (6-20) 10/16/18 04:25 Creatinine 0.6 mg/dL (0.4-1.0) 10/16/18 04:25 Estimated GFR (MDRD) 101 (>89) 10/16/18 04:25 Glucose 167 mg/dL (70-100) H 10/16/18 04:25 POC Whole Bld Glucose 189 mg/dL (70 - 100) H 10/16/18 07:57 Lactic Acid 1.1 mmol/L (0.5-2.2) 10/14/18 14:22 Calcium 7.0 mg/dL (8.5-10.3) L 10/16/18 04:25 Phosphorus 2.1 mg/dL (2.5-4.6) L 10/16/18 04:25 Magnesium 1.7 mg/dL (1.7-2.8) 10/16/18 04:25 Total Bilirubin 3.1 mg/dL (0.2-1.0) H 10/16/18 04:25 AST 1817 IU/L (10-42) H 10/16/18 04:25 ALT 687 IU/L (10-60) H 10/16/18 04:25 Alkaline Phosphatase 149 IU/L (42-121) H 10/16/18 04:25 Total Protein 3.7 g/dL (6.7-8.2) L 10/16/18 04:25 Albumin 1.3 g/dL (3.2-5.5) L 10/16/18 04:25 Globulin 2.4 g/dL (2.1-4.2) 10/16/18 04:25 Albumin/Globulin Ratio 0.5 (1.0-2.2) L 10/16/18 04:25 Prealbumin 2 mg/dL (18-45) L 10/16/18 04:25 Triglycerides 42 mg/dL (-149) 10/16/18 04:25 Lipase 21 U/L (22-51) L 10/14/18 13:10 Urine Color YELLOW 10/14/18 20:00 Urine Clarity CLEAR (CLEAR) 10/14/18 20:00 Urine pH 6.0 PH (5.0-7.5) 10/14/18 20:00 Ur Specific Hustler 1.015 (1.002-1.030) 10/14/18 20:00 Urine Protein NEGATIVE mg/dL (NEGATIVE) 10/14/18 20:00 Urine Glucose (UA) NEGATIVE mg/dL (NEGATIVE) 10/14/18 20:00 Urine Ketones 15 mg/dL (NEGATIVE) H 10/14/18 20:00 Urine Occult Blood TRACE-INTA (NEGATIVE) 10/14/18 20:00 Urine Nitrite POSITIVE (NEGATIVE) H 10/14/18 20:00 Urine Bilirubin NEGATIVE (NEGATIVE) 10/14/18 20:00 Urine Urobilinogen 0.2 (NORMAL) E.U./dL (NORMAL) 10/14/18 20:00 Ur Leukocyte Esterase NEGATIVE (NEGATIVE) 10/14/18 20:00 Urine RBC 0-5 /HPF (0-5) 10/14/18 20:00 Urine WBC 0-3 /HPF (0-5) 10/14/18 20:00 Ur Squamous Epith Cells NONE SEEN (<= Few) 10/14/18 20:00 Urine Bacteria Rare /HPF (None Seen) 10/14/18 20:00 Ur Microscopic Review INDICATED 10/14/18 20:00 Urine Culture Comments INDICATED 10/14/18 20:00 Acetaminophen 90 ug/mL (10-30) H* 10/16/18 07:12 MRSA Surveill Initial NEGATIVE (NEGATIVE) 10/14/18 20:00 - Procedures Procedures: Procedures EXCISION OF LEFT LOBE LIVER, OPEN APPROACH, DIAGNOSTIC (10/05/18) EXCISION OF MESENTERY, OPEN APPROACH (10/05/18) EXCISION OF TRANSVERSE COLON, OPEN APPROACH (10/05/18) RESECTION OF RIGHT LARGE INTESTINE, OPEN APPROACH (10/05/18)
--- NOTE | 2018-10-16 09:08 | PROVIDER PROGRESS NOTE ---
Subjective - General Admit Date: 10/14/18 Procedure Date: 10/14/18 Post Op Days: 6 Procedure Performed: Exploratory laparotomy with takedown necrotic anastamosis, end ileostomy - Review of Systems Wound/Incisions: positive: Dressing dry and intact, Other (Ostomy pink.) Drain Type: None. General: positive: No symptoms HEENT: positive: No symptoms Pulmonary: positive: No symptoms Cardiovascular: positive: No symptoms Gastrointestinal: positive: No symptoms Genitourinary: positive: No symptoms Musculoskeletal: positive: No symptoms Skin: positive: No symptoms Psychiatric: positive: No symptoms Objective - Patient Data Vital Signs: Vital Signs x48h Temp Pulse Pulse Resp BP Pulse Ox 10/16/18 08:00 36.5 C 110 H 8 L 96/64 100 10/16/18 07:00 114 H 10 L 96/61 100 10/16/18 06:00 119 H 15 114/83 H 100 10/16/18 05:00 106 H 7 L 114/67 99 10/16/18 04:32 36.3 C L 88 13 100 10/16/18 04:00 96 10 L 134/76 H 100 10/16/18 03:00 101 H 9 L 138/75 H 100 10/16/18 02:00 100 8 L 136/76 H 100 Weight: Weight 10/14/18 10/15/18 10/16/18 23:59 23:59 23:59 Weight (kg) 48.5 kg 51 kg 52 kg Intake & Output: Intake and Output Totals x24h 10/14/18 10/15/18 10/16/18 23:59 23:59 23:59 Intake Total 2867.084 4131.416 2453.727 Output Total 160 2065 950 Balance 2707.084 2066.416 1503.727 - Lab Results Lab Results: 10/18/18 04:45 10/18/18 04:45 Other Lab Results: Lab Results x24hrs 10/16/18 10/16/18 10/16/18 Range/Units 07:57 07:12 06:10 WBC (4.8-10.8) x10^3/uL RBC (4.20-5.40) 10^6/uL Hgb (12.0-16.0) g/dL Hct (37.0-47.0) % MCV (81.0-99.0) fL MCH (27.0-31.0) pg MCHC (32.0-36.0) g/dL RDW (12.0-15.0) % Plt Count (130-450) 10^3/uL MPV (7.9-10.8) fL Neut # (Auto) (1.5-6.6) 10^3/uL Lymph # (Auto) (1.5-3.5) 10^3/uL Stanly # (Auto) (0.0-1.0) 10^3/uL Eos # (Auto) (0.0-0.7) 10^3/uL Baso # (Auto) (0.0-0.1) 10^3/uL Absolute Nucleated RBC x10^3/uL Nucleated RBC % /100WBC Manual Slide Review Platelet Estimate (NORMAL) RBC Morph Micro Appear (NORMAL) PT 63.7 H (9.9-12.6) secs INR 5.7 H* (0.8-1.2) Sodium (135-145) mmol/L Potassium (3.5-5.0) mmol/L Chloride (101-111) mmol/L Carbon Dioxide (21-32) mmol/L Anion Gap (6-13) BUN (6-20) mg/dL Creatinine (0.4-1.0) mg/dL Estimated GFR (MDRD) (>89) Glucose (70-100) mg/dL POC Whole Bld Glucose 189 H (70 - 100) mg/dL Calcium (8.5-10.3) mg/dL Phosphorus (2.5-4.6) mg/dL Magnesium (1.7-2.8) mg/dL Total Bilirubin (0.2-1.0) mg/dL AST (10-42) IU/L ALT (10-60) IU/L Alkaline Phosphatase (42-121) IU/L Total Protein (6.7-8.2) g/dL Albumin (3.2-5.5) g/dL Globulin (2.1-4.2) g/dL Albumin/Globulin Ratio (1.0-2.2) Prealbumin (18-45) mg/dL Triglycerides ( - 149) mg/dL Acetaminophen 90 H* (10-30) ug/mL 10/16/18 10/16/18 10/16/18 Range/Units 06:08 04:25 04:25 WBC 13.1 H (4.8-10.8) x10^3/uL RBC 4.50 (4.20-5.40) 10^6/uL Hgb 11.6 L (12.0-16.0) g/dL Hct 35.4 L (37.0-47.0) % MCV 78.6 L (81.0-99.0) fL MCH 25.8 L (27.0-31.0) pg MCHC 32.8 (32.0-36.0) g/dL RDW 29.7 H (12.0-15.0) % Plt Count 113 L (130-450) 10^3/uL MPV 8.8 (7.9-10.8) fL Neut # (Auto) 11.8 H (1.5-6.6) 10^3/uL Lymph # (Auto) 1.0 L (1.5-3.5) 10^3/uL Stanly # (Auto) 0.2 (0.0-1.0) 10^3/uL Eos # (Auto) 0.1 (0.0-0.7) 10^3/uL Baso # (Auto) 0.0 (0.0-0.1) 10^3/uL Absolute Nucleated RBC 0.00 x10^3/uL Nucleated RBC % 0.0 /100WBC Manual Slide Review Indicated Platelet Estimate DECREASED (<130,000) (NORMAL) RBC Morph Micro Appear 1+ MICROCYTOSIS (NORMAL) PT (9.9-12.6) secs INR (0.8-1.2) Sodium 133 L (135-145) mmol/L Potassium 3.5 (3.5-5.0) mmol/L Chloride 108 (101-111) mmol/L Carbon Dioxide 19 L (21-32) mmol/L Anion Gap 6.0 (6-13) BUN 9 (6-20) mg/dL Creatinine 0.6 (0.4-1.0) mg/dL Estimated GFR (MDRD) 101 (>89) Glucose 167 H (70-100) mg/dL POC Whole Bld Glucose 155 H (70 - 100) mg/dL Calcium 7.0 L (8.5-10.3) mg/dL Phosphorus 2.1 L (2.5-4.6) mg/dL Magnesium 1.7 (1.7-2.8) mg/dL Total Bilirubin 3.1 H (0.2-1.0) mg/dL AST 1817 H (10-42) IU/L ALT 687 H (10-60) IU/L Alkaline Phosphatase 149 H (42-121) IU/L Total Protein 3.7 L (6.7-8.2) g/dL Albumin 1.3 L (3.2-5.5) g/dL Globulin 2.4 (2.1-4.2) g/dL Albumin/Globulin Ratio 0.5 L (1.0-2.2) Prealbumin 2 L (18-45) mg/dL Triglycerides 42 ( - 149) mg/dL Acetaminophen (10-30) ug/mL 10/15/18 10/15/18 10/15/18 Range/Units 23:59 20:26 19:07 WBC (4.8-10.8) x10^3/uL RBC (4.20-5.40) 10^6/uL Hgb (12.0-16.0) g/dL Hct (37.0-47.0) % MCV (81.0-99.0) fL MCH (27.0-31.0) pg MCHC (32.0-36.0) g/dL RDW (12.0-15.0) % Plt Count (130-450) 10^3/uL MPV (7.9-10.8) fL Neut # (Auto) (1.5-6.6) 10^3/uL Lymph # (Auto) (1.5-3.5) 10^3/uL Stanly # (Auto) (0.0-1.0) 10^3/uL Eos # (Auto) (0.0-0.7) 10^3/uL Baso # (Auto) (0.0-0.1) 10^3/uL Absolute Nucleated RBC x10^3/uL Nucleated RBC % /100WBC Manual Slide Review Platelet Estimate (NORMAL) RBC Morph Micro Appear (NORMAL) PT (9.9-12.6) secs INR (0.8-1.2) Sodium (135-145) mmol/L Potassium (3.5-5.0) mmol/L Chloride (101-111) mmol/L Carbon Dioxide (21-32) mmol/L Anion Gap (6-13) BUN (6-20) mg/dL Creatinine (0.4-1.0) mg/dL Estimated GFR (MDRD) (>89) Glucose (70-100) mg/dL POC Whole Bld Glucose 147 H 204 H (70 - 100) mg/dL Calcium (8.5-10.3) mg/dL Phosphorus (2.5-4.6) mg/dL Magnesium 1.9 (1.7-2.8) mg/dL Total Bilirubin (0.2-1.0) mg/dL AST (10-42) IU/L ALT (10-60) IU/L Alkaline Phosphatase (42-121) IU/L Total Protein (6.7-8.2) g/dL Albumin (3.2-5.5) g/dL Globulin (2.1-4.2) g/dL Albumin/Globulin Ratio (1.0-2.2) Prealbumin (18-45) mg/dL Triglycerides ( - 149) mg/dL Acetaminophen (10-30) ug/mL 10/15/18 Range/Units 12:07 WBC (4.8-10.8) x10^3/uL RBC (4.20-5.40) 10^6/uL Hgb (12.0-16.0) g/dL Hct (37.0-47.0) % MCV (81.0-99.0) fL MCH (27.0-31.0) pg MCHC (32.0-36.0) g/dL RDW (12.0-15.0) % Plt Count (130-450) 10^3/uL MPV (7.9-10.8) fL Neut # (Auto) (1.5-6.6) 10^3/uL Lymph # (Auto) (1.5-3.5) 10^3/uL Stanly # (Auto) (0.0-1.0) 10^3/uL Eos # (Auto) (0.0-0.7) 10^3/uL Baso # (Auto) (0.0-0.1) 10^3/uL Absolute Nucleated RBC x10^3/uL Nucleated RBC % /100WBC Manual Slide Review Platelet Estimate (NORMAL) RBC Morph Micro Appear (NORMAL) PT (9.9-12.6) secs INR (0.8-1.2) Sodium (135-145) mmol/L Potassium (3.5-5.0) mmol/L Chloride (101-111) mmol/L Carbon Dioxide (21-32) mmol/L Anion Gap (6-13) BUN (6-20) mg/dL Creatinine (0.4-1.0) mg/dL Estimated GFR (MDRD) (>89) Glucose (70-100) mg/dL POC Whole Bld Glucose 196 H (70 - 100) mg/dL Calcium (8.5-10.3) mg/dL Phosphorus (2.5-4.6) mg/dL Magnesium (1.7-2.8) mg/dL Total Bilirubin (0.2-1.0) mg/dL AST (10-42) IU/L ALT (10-60) IU/L Alkaline Phosphatase (42-121) IU/L Total Protein (6.7-8.2) g/dL Albumin (3.2-5.5) g/dL Globulin (2.1-4.2) g/dL Albumin/Globulin Ratio (1.0-2.2) Prealbumin (18-45) mg/dL Triglycerides ( - 149) mg/dL Acetaminophen (10-30) ug/mL - Current Medications Current Medications: Current Medications Generic Name Dose Route Start Last Admin Trade Name Freq PRN Reason Stop Dose Admin Hydromorphone HCl 0.5 mg 10/14/18 18:56 10/16/18 04:40 Dilaudid Inj Syringe IVP 0.5 mg Q2H PRN Administration PAIN Potassium Chloride/Dextrose/Sod Cl 1,000 mls @ 125 mls/hr 10/14/18 16:00 10/16/18 08:00 IV 125 mls/hr .Q8H FIFI Infusion Famotidine 50 mls @ 100 mls/hr 10/15/18 09:00 10/15/18 10:30 Pepcid 20 Mg/50 Ml IV Infused DAILY FIFI Infusion Piperacillin Sod/Tazobactam 100 mls @ 25 mls/hr 10/15/18 16:00 10/16/18 08:50 Sod 3.375 gm/ Sodium Chloride IV 10/20/18 23:59 25 mls/hr Q8H FIFI Administration Multivitamins 10 ml/ Chromium/ 2,011 mls @ 83.792 mls/hr 10/15/18 19:00 00:00 Copper/Manganese/Seleni/Zn 1 IV 83.792 mls/hr ml/ Amino Ac/Electrol/Dextrose 1900 FIFI Infusion /Calcium Fat Emulsion Intravenous 250 mls @ 21 mls/hr 10/15/18 19:00 10/16/18 06:47 Intralipid 20% IV Infused 1900 FIFI Infusion Lorazepam 0.25 mg 10/15/18 14:13 10/15/18 16:37 Ativan Inj (Vial) IVP 0.25 mg Q8H PRN Administration Anxiety Mineral Oil 1 applic 10/15/18 11:41 10/15/18 16:58 Cavilon TOP 1 applic PRN PRN Administration Skin Care Polyethylene Glycol 17 gm 10/15/18 09:00 10/15/18 10:17 Miralax PO Not Given DAILY FIFI Sodium Chloride 10 ml 10/14/18 15:47 10/15/18 18:41 Normal Saline Flush 0.9% IVP 10 ml PRN PRN Administration NEEDED PER PROVIDER ORDERS Sodium Chloride 10 ml 10/14/18 17:00 10/16/18 03:00 Normal Saline Flush 0.9% IVP 10 ml 0100,0900,1700 FIFI Administration Sodium Chloride 10 ml 10/15/18 01:00 10/16/18 03:01 Normal Saline Flush 0.9% IVP Not Given 0100,0900,1700 [facility] Sodium Chloride 10 ml 10/14/18 18:47 10/15/18 16:40 Normal Saline Flush 0.9% IVP 10 ml PRN PRN Administration NEEDED PER PROVIDER ORDERS Impression/Plan - Problem List Problem List: D2 s/p exploratory laparotomy with takedown of necrotic anastamosis 1) FEN Nutrition on the case. Need aggressive intervention knowing all the risks - patient is between "a rock and a hard place." Quick nutritional intervention carries risk but in her case with a 40 pound weight loss slowly supporting her nutrition has the risk of not healing at all which we have already seen. This is a case for some risk taking regarding over feeding. 2) Stage IV colon cancer with liver metsatases Formally consult Palliative Care. Prognosis poor. 3) Activity Increase as much as tolerated. 4) Hepatic dysfunction Likely secondary Acetaminophen toxicity overlayed on multiple large hepatic metastases. Patient now off Acetaminophen and will follow. Doubt that N-acetylcysteine will help at this time as the Acetaminophen that caused this was probably given days ago. Activated charcoal will definitely NOT help.
[2018-10-16] MEDS ORDERED: TPN (CLINIMIX E 5/15) 2,000 ML with MULTIVITAMIN 10 ML, TRACE ELEMENTS V CONC 1 ML IV SCH ×3 (10:30)
[2018-10-16] MEDS: POLYETHYLENE GLYCOL 3350 17 GM PACKET PO SCH (11:17)
[2018-10-16] MEDS ORDERED: PPN (CLINIMIX E 4.25/5) 2,000 ML with MULTIVITAMIN 10 ML, TRACE ELEMENTS V CONC 1 ML IV SCH ×3 (12:30)
[2018-10-16] MEDS: SODIUM CHLORIDE FLUSH 0.9% 10 ML SYRINGE IVP PRN ×2 (12:42→14:18)
[2018-10-16] MEDS ORDERED: IOVERSOL 320 100 ML VIAL IVP ONE ×2 (13:10→15:59)
--- NOTE | 2018-10-16 13:17 | CONSULTATION NOTE ---
Palliative Care Follow Up - Referral Referring Provider: Dr. Willam Yip Time of Visit: [id number] Referral setting: Hospitalized patient Referral Reason: Stage IV Colon Cancer with liver mets/Goals of care - Information Sources Records reviewed: RN notes reviewed, Previous records reviewed History/Review of Systems obtained from: Patient, Family (met with daughter Toma and sister Thalia) Exam limitations: Clinical condition (patient with high anxiety;) - History of Present Illness Update Brief HPI Update: This is a 63-year-old woman who was recently hospitalized 10/05-10/10, after she had been admitted with increasing abdominal pain, nausea and vomiting, and underwent a CT of the abdomen that revealed an abdominal mass and liver lesions suspicious for metastasis. She did undergo a right and transverse colectomy with reanastomosis and liver biopsy, has shown metastatic colon adenocarcinoma. She had originally started doing okay at home, but decreased intake, increased nausea and vomiting, and was admitted acutely on 10/14/18. Was found to have free fluid and air and taken to surgery again. She received exploratory laparotomy, with oversewing of the ascending colon and end ileostomy with a takedown of the necrotic and anastomosis. She was found to have a necrotic anastomosis with actually a leak. Palliative care is meeting with patient, she has high anxiety, difficulty adjusting to her new diagnosis, presents today with abnormal labs including elevated LFTs. I had met her on her last admit, actually there was a plan to meet today to process and explore her options regarding to her stage IV metastatic colon cancer with liver metastases. We had spoken briefly yesterday, and setting further rapport and setting the stage for more serious decision making for today. Patient acknowledges difficult for her to process information, she likes to do things and stepwise process, reports is difficult for her to cope and gets easily overwhelmed.She was willing though from myself to talk to her sister and daughter, and further explore some of the issues regarding her current situation and decisions to be made in the future at our meeting today. Social History - Living Situation Living arrangement: At home Living Situation: With family Support System: Patient has been living in an apartment over the garage, does not plumbing, reports it was in fairly poor condition per daughter and sister. It is going up a steep staircase, and patient is admitting today that this is not sustainable for her to return back to that setting in the condition that she is in looking forward to improving after her surgery. She also lives with her 90+-year-old stepfather, who is not able to be a caregiver, and is significantly stressed by the ongoing situation. Her daughter Toma is on family leave, but can only commit for a few weeks, her sister Camilla is here to help navigate some of the decision making. She has another sister Myriam who lives and [place]. Medications/Allergies - Medications Active Medication List: Active Medications Benzocaine/Butamben/Tetracaine HCl (Cetacaine [place]) 1 sprays MM DAILY PRN PRN Reason: Throat Pain Hydralazine HCl (Apresoline Inj) 10 mg IVP TID PRN PRN Reason: Hypertensive Emergency Hydromorphone HCl (Dilaudid Inj Syringe) 0.5 mg IVP Q2H PRN PRN Reason: PAIN Last Admin: 10/16/18 04:40 Dose: 0.5 mg Potassium Chloride/Dextrose/Sod Cl () 1,000 mls @ 125 mls/hr IV .Q8H [facility] Last Admin: 10/16/18 12:47 Dose: 125 mls/hr Famotidine (Pepcid 20 Mg/50 Ml) 50 mls @ 100 mls/hr IV DAILY [facility] Last Infusion: 10/16/18 09:33 Dose: Infused Piperacillin Sod/Tazobactam (Sod 3.375 gm/ Sodium Chloride) 100 mls @ 25 mls/hr IV Q8H [facility] Stop: 10/20/18 23:59 Last Admin: 10/16/18 08:50 Dose: 25 mls/hr Fat Emulsion Intravenous (Intralipid 20%) 250 mls @ 21 mls/hr IV 1900 [facility] Last Infusion: 10/16/18 06:47 Dose: Infused Multivitamins 10 ml/ Chromium/Copper/Manganese/Seleni/Zn 1 ml/ Amino Ac/Electrol/Dextrose /Calcium 2,011 mls @ 40 mls/hr IV 1900 [facility] Stop: 10/16/18 18:59 Last Infusion: 10/16/18 12:00 Dose: 40 mls/hr Multivitamins 10 ml/ Chromium/Copper/Manganese/Seleni/Zn 1 ml/ Amino Acids/Electrolytes/Dextrose 2,011 mls @ 83 mls/hr IV 1900 [facility] Mineral Oil (Cavilon) 1 applic TOP PRN PRN PRN Reason: Skin Care Last Admin: 10/15/18 16:58 Dose: 1 applic Ondansetron HCl (Zofran Inj) 4 mg IVP Q6HR PRN PRN Reason: Nausea / Vomiting Phenol/Menthol (Chloraseptic) 1 sprays MM Q2HR PRN PRN Reason: Throat Pain Polyethylene Glycol (Miralax) 17 gm PO DAILY [facility] Last Admin: 10/16/18 11:17 Dose: Not Given Prochlorperazine Edisylate (Compazine Inj) 10 mg IVP Q6HR PRN PRN Reason: Nausea / Vomiting Sodium Chloride (Normal Saline Flush 0.9%) 10 ml IVP 0100,0900,1700 [facility] Last Admin: 10/16/18 11:44 Dose: 10 ml Sodium Chloride (Normal Saline Flush 0.9%) 10 ml IVP PRN PRN PRN Reason: NEEDED PER PROVIDER ORDERS Last Admin: 10/15/18 16:40 Dose: 10 ml Sodium Chloride (Normal Saline Flush 0.9%) 20 ml IVP PRN PRN PRN Reason: After Blood Draw Last Admin: 10/16/18 12:42 Dose: 20 ml Omeprazole 20 mg PO DAILY 10/14/18 Potassium Chloride 20 meq PO DAILY 10/14/18 - Allergies Allergies/Adverse Reactions: Allergies Allergy/AdvReac Type Severity Reaction Status Date / Time Sulfa (Sulfonamide Allergy Rash Verified 10/14/18 10:58 Antibiotics) Review of Systems - Constitutional Constitutional: reports: Fatigue. denies: Fever - Ears, Nose & Throat Ears, Nose & Throat: reports: Dental decay, Dry mouth - Gastrointestinal Gastrointestinal: reports: Other (has NG tube; on TPN currently; new ileostomy) - Musculoskeletal Musculoskeletal: reports: Muscle weakness - Integumentary Integumentary: reports: Dryness - Neurological Neurological: reports: General weakness - Psychiatric Psychiatric: reports: Depression, Anxiety - Hematologic/Lymphatic Hematologic/Lymphatic: reports: Anemia - All Other Systems All Other Systems: reports: Other (limited ROS) Physical Exam - Vital Signs Vital Signs: Vital Signs x48h Temp Pulse Resp BP Pulse Ox 10/16/18 12:00 113 H 9 L 88/69 L 98 10/16/18 11:00 110 H 13 97/67 99 10/16/18 10:00 113 H 9 L 103/87 H 98 10/16/18 09:00 116 H 10 L 89/52 L 100 10/16/18 08:00 36.5 C 110 H 8 L 96/64 100 10/16/18 07:00 114 H 10 L 96/61 100 10/16/18 06:00 119 H 15 114/83 H 100 - Physical Exam General Appearance: positive: Mild distress, Anxious Eyes Bilateral: positive: Normal inspection ENT: positive: Dry mucous membranes, Other (poor dentition) Neck: positive: Trachea midline Cardiovascular: positive: Tachycardia Respiratory: positive: No respiratory distress, Diminished in bases Abdomen: positive: Soft, Abnml bowel sounds (hypoactive), Tenderness, Other (ileostomy with watery serosanguinous output) Skin: positive: Pallor, Dryness, Other (dressing on surgical incison) Extremities: positive: No pedal edema Neurologic/Psychiatric: positive: Oriented x3, Weakness, Other (anxious) Palliative Care - POLST Patient has POLST: No POLST Status: Full Code Pain: Pain improved, Location ("twinges" in her abdomen; 2/10) Tiredness/Fatigue: Severe (7-10) Drowsiness/Sedation: Moderate (4-6) Anxiety: Severe (7-10) Performance Status: She has had declining functional status over several months, had made some improvements after last hospitalization was able to ambulate short distances with walker. Patient acutely ill and bedbound currently. In the ICU - Palliative Care Discussion: Met with patient, her sister Camilla, and daughter Toma initiated goals of care conversation. Patient does understand she has a serious illness, we did discuss in the context of her stage IV cancer and liver metastases, she is able to say "I am dying". She would like to know ranges regarding this for prognosis, we did discuss currently she is acutely ill and were waiting to see how she recovers from her complications. In the context of this we did initiate a conversation around DNA R. Patient has some significant anxiety regarding this. She does align this with as do not treat, and perceives not accepting or choosing no treatment as suicidal. This has much to do with her experience around her mother's . We did discuss in the context of looking at it differently versus as a medical intervention, as allowing natural if things were to continue to deteriorate. She was better able to hear this. But does want to honor the things that can be done for her. She does not want any "heroic measures". If she were not to return to a level of functioning that she could be somewhat independent this would not be acceptable quality of life. We approached this from multiple different angles, also in the context that she does not have a curative disease, she still remains somewhat ambivalent about wanting to be a DNA R, but does have a clearer understanding and is leaning more towards this. Toma her D POA, does feel that she could make decisions at this point in time if she were to worsen of what that threshold might be, but will continue to explore as we develop her goals of care. She does understand that she would be looking at in the future chemotherapy and/or immunotherapy. She has delayed this appointment with oncology, as she wants to process currently what is going on and await to see what is involved in her healing. She does understand she cannot return home to her previous setting, and did initiate the continuum of care including possible rehab stay, or other placement where she can receive support. She asked that I talk with Camilla and Toma further. Did meet with Sandhya and Camilla separately. A moore issue that was revealed is that patient has been a long-term alcoholic, that she most likely will never admit this, and most likely stopped drinking somewhere in June along with her smoking because of her vomiting and increasing abdominal pain they do perceive her as having significant self-neglect, they found her place in quite disarray, she patient presents behaviors consistent with being agoraphobic. They reports even in the last week, was eating little, was refusing to take her potassium and iron, had been feeling hungry but overate and vomited and then was nervous about eating. All are in agreement the patient cannot return back to her home, patient has no financial resources, they have been working with [employer] to come out with a longer term solution. Toma her daughter is available maybe until October, but has multiple stressors as well as far as being able to stay she would take FMLA. Camilla her sister is from [place], she will stay for the next couple weeks to try and help come up with a good discharge plan. Both are making multiple phone calls and trying to access resources and work with social services specialist. Patient is somewhat magical thinking in the context she wants to find a [employer] apartment, that she can have her own "privacy bubble". She does get quite anxious around others but is aware that transition settings will involve most likely roommates and/or more interaction. Results - Lab Results Lab results reviewed: Yes Fish Bones: 10/16/18 04:25 10/16/18 04:25 Lab and Imaging Results: Lab Results x24hrs 10/16/18 10/16/18 10/16/18 Range/Units 11:45 07:57 07:12 WBC (4.8-10.8) x10^3/uL RBC (4.20-5.40) 10^6/uL Hgb (12.0-16.0) g/dL Hct (37.0-47.0) % MCV (81.0-99.0) fL MCH (27.0-31.0) pg MCHC (32.0-36.0) g/dL RDW (12.0-15.0) % Plt Count (130-450) 10^3/uL MPV (7.9-10.8) fL Neut # (Auto) (1.5-6.6) 10^3/uL Lymph # (Auto) (1.5-3.5) 10^3/uL [place] # (Auto) (0.0-1.0) 10^3/uL Eos # (Auto) (0.0-0.7) 10^3/uL Baso # (Auto) (0.0-0.1) 10^3/uL Absolute Nucleated RBC x10^3/uL Nucleated RBC % /100WBC Manual Slide Review Platelet Estimate (NORMAL) RBC Morph Micro Appear (NORMAL) PT (9.9-12.6) secs INR (0.8-1.2) Sodium (135-145) mmol/L Potassium (3.5-5.0) mmol/L Chloride (101-111) mmol/L Carbon Dioxide (21-32) mmol/L Anion Gap (6-13) BUN (6-20) mg/dL Creatinine (0.4-1.0) mg/dL Estimated GFR (MDRD) (>89) Glucose (70-100) mg/dL POC Whole Bld Glucose 169 H 189 H (70 - 100) mg/dL Calcium (8.5-10.3) mg/dL Phosphorus (2.5-4.6) mg/dL Magnesium (1.7-2.8) mg/dL Total Bilirubin (0.2-1.0) mg/dL AST (10-42) IU/L ALT (10-60) IU/L Alkaline Phosphatase (42-121) IU/L Total Protein (6.7-8.2) g/dL Albumin (3.2-5.5) g/dL Globulin (2.1-4.2) g/dL Albumin/Globulin Ratio (1.0-2.2) Prealbumin (18-45) mg/dL Triglycerides ( - 149) mg/dL Acetaminophen 90 H* (10-30) ug/mL 10/16/18 10/16/18 10/16/18 Range/Units 06:10 06:08 04:25 WBC (4.8-10.8) x10^3/uL RBC (4.20-5.40) 10^6/uL Hgb (12.0-16.0) g/dL Hct (37.0-47.0) % MCV (81.0-99.0) fL MCH (27.0-31.0) pg MCHC (32.0-36.0) g/dL RDW (12.0-15.0) % Plt Count (130-450) 10^3/uL MPV (7.9-10.8) fL Neut # (Auto) (1.5-6.6) 10^3/uL Lymph # (Auto) (1.5-3.5) 10^3/uL [place] # (Auto) (0.0-1.0) 10^3/uL Eos # (Auto) (0.0-0.7) 10^3/uL Baso # (Auto) (0.0-0.1) 10^3/uL Absolute Nucleated RBC x10^3/uL Nucleated RBC % /100WBC Manual Slide Review Platelet Estimate (NORMAL) RBC Morph Micro Appear (NORMAL) PT 63.7 H (9.9-12.6) secs INR 5.7 H* (0.8-1.2) Sodium 133 L (135-145) mmol/L Potassium 3.5 (3.5-5.0) mmol/L Chloride 108 (101-111) mmol/L Carbon Dioxide 19 L (21-32) mmol/L Anion Gap 6.0 (6-13) BUN 9 (6-20) mg/dL Creatinine 0.6 (0.4-1.0) mg/dL Estimated GFR (MDRD) 101 (>89) Glucose 167 H (70-100) mg/dL POC Whole Bld Glucose 155 H (70 - 100) mg/dL Calcium 7.0 L (8.5-10.3) mg/dL Phosphorus 2.1 L (2.5-4.6) mg/dL Magnesium 1.7 (1.7-2.8) mg/dL Total Bilirubin 3.1 H (0.2-1.0) mg/dL AST 1817 H (10-42) IU/L ALT 687 H (10-60) IU/L Alkaline Phosphatase 149 H (42-121) IU/L Total Protein 3.7 L (6.7-8.2) g/dL Albumin 1.3 L (3.2-5.5) g/dL Globulin 2.4 (2.1-4.2) g/dL Albumin/Globulin Ratio 0.5 L (1.0-2.2) Prealbumin 2 L (18-45) mg/dL Triglycerides 42 ( - 149) mg/dL Acetaminophen (10-30) ug/mL 10/16/18 10/15/18 10/15/18 Range/Units 04:25 23:59 20:26 WBC 13.1 H (4.8-10.8) x10^3/uL RBC 4.50 (4.20-5.40) 10^6/uL Hgb 11.6 L (12.0-16.0) g/dL Hct 35.4 L (37.0-47.0) % MCV 78.6 L (81.0-99.0) fL MCH 25.8 L (27.0-31.0) pg MCHC 32.8 (32.0-36.0) g/dL RDW 29.7 H (12.0-15.0) % Plt Count 113 L (130-450) 10^3/uL MPV 8.8 (7.9-10.8) fL Neut # (Auto) 11.8 H (1.5-6.6) 10^3/uL Lymph # (Auto) 1.0 L (1.5-3.5) 10^3/uL [place] # (Auto) 0.2 (0.0-1.0) 10^3/uL Eos # (Auto) 0.1 (0.0-0.7) 10^3/uL Baso # (Auto) 0.0 (0.0-0.1) 10^3/uL Absolute Nucleated RBC 0.00 x10^3/uL Nucleated RBC % 0.0 /100WBC Manual Slide Review Indicated Platelet Estimate DECREASED (<130,000) (NORMAL) RBC Morph Micro Appear 1+ MICROCYTOSIS (NORMAL) PT (9.9-12.6) secs INR (0.8-1.2) Sodium (135-145) mmol/L Potassium (3.5-5.0) mmol/L Chloride (101-111) mmol/L Carbon Dioxide (21-32) mmol/L Anion Gap (6-13) BUN (6-20) mg/dL Creatinine (0.4-1.0) mg/dL Estimated GFR (MDRD) (>89) Glucose (70-100) mg/dL POC Whole Bld Glucose 147 H (70 - 100) mg/dL Calcium (8.5-10.3) mg/dL Phosphorus (2.5-4.6) mg/dL Magnesium 1.9 (1.7-2.8) mg/dL Total Bilirubin (0.2-1.0) mg/dL AST (10-42) IU/L ALT (10-60) IU/L Alkaline Phosphatase (42-121) IU/L Total Protein (6.7-8.2) g/dL Albumin (3.2-5.5) g/dL Globulin (2.1-4.2) g/dL Albumin/Globulin Ratio (1.0-2.2) Prealbumin (18-45) mg/dL Triglycerides ( - 149) mg/dL Acetaminophen (10-30) ug/mL 10/15/18 Range/Units 19:07 WBC (4.8-10.8) x10^3/uL RBC (4.20-5.40) 10^6/uL Hgb (12.0-16.0) g/dL Hct (37.0-47.0) % MCV (81.0-99.0) fL MCH (27.0-31.0) pg MCHC (32.0-36.0) g/dL RDW (12.0-15.0) % Plt Count (130-450) 10^3/uL MPV (7.9-10.8) fL Neut # (Auto) (1.5-6.6) 10^3/uL Lymph # (Auto) (1.5-3.5) 10^3/uL [place] # (Auto) (0.0-1.0) 10^3/uL Eos # (Auto) (0.0-0.7) 10^3/uL Baso # (Auto) (0.0-0.1) 10^3/uL Absolute Nucleated RBC x10^3/uL Nucleated RBC % /100WBC Manual Slide Review Platelet Estimate (NORMAL) RBC Morph Micro Appear (NORMAL) PT (9.9-12.6) secs INR (0.8-1.2) Sodium (135-145) mmol/L Potassium (3.5-5.0) mmol/L Chloride (101-111) mmol/L Carbon Dioxide (21-32) mmol/L Anion Gap (6-13) BUN (6-20) mg/dL Creatinine (0.4-1.0) mg/dL Estimated GFR (MDRD) (>89) Glucose (70-100) mg/dL POC Whole Bld Glucose 204 H (70 - 100) mg/dL Calcium (8.5-10.3) mg/dL Phosphorus (2.5-4.6) mg/dL Magnesium (1.7-2.8) mg/dL Total Bilirubin (0.2-1.0) mg/dL AST (10-42) IU/L ALT (10-60) IU/L Alkaline Phosphatase (42-121) IU/L Total Protein (6.7-8.2) g/dL Albumin (3.2-5.5) g/dL Globulin (2.1-4.2) g/dL Albumin/Globulin Ratio (1.0-2.2) Prealbumin (18-45) mg/dL Triglycerides ( - 149) mg/dL Acetaminophen (10-30) ug/mL Impression and Recommendations - Palliative Care Impression: This is a 63-year-old woman who presents acutely now with a second surgery as result of her necrotic anastomosis with a leak, she now has an ileostomy. She does have stage IV colon cancer with known liver metastases, worsening liver function tests, increasing white count, and is very fragile and high risk for complications. Patient has high anxiety, her healthcare beliefs and coping make it difficult for her to participate in decision-making. Palliative care providing support regarding defining goals of care, and emotional support for negotiating decisions and transition planning. Recommendations/Counseling Done: 1. Stage IV colon cancer with liver metastases. Patient with poor nutritional status, declining functional status, high risk for complications and with elevated LFTs. Counseling provided regarding course and trajectory moving forward, patient not wanting "details", but willing to hear information regarding disease, treatments, and addressed concerns. Family with multiple questions, addressed with what information we had currently, but reaffirmed patient not able to consider treatment unless/until she improves. 2.Anxiety. Patient was able to participate in initial conversation regarding goals of care, she does get quite anxious. At the point she is able to take oral medications again, would recommend seen her she would accept being on some sertraline. Would continue to use small doses of Lorazepam to address escalating anxiety and/or/panic attacks. Counseling provided regarding normalizing current feelings, patient expressing significant feelings of loss of control. Would recommend creating environment as able to allow her the ability to pace information and participation in her care. 3. Advanced care planning. Patient has many fears and concerns regarding DNA R, initiated conversation and education regarding goals of care and choices around this. Interpreted this as far as in the context of her serious illness, threshold for "heroic measures" as expressed she did not want them, as well as pending decisions in the future. Patient at high risk for ongoing and acute complications given her long history of alcoholism, poor nutrition, and concern for self-neglect. Patient presents with complex social situation, with limited financial resources, unable to return back to home setting, most likely going to need alternative setting senior care and possibly rehab on discharge. Patient's current goals include returning to independence, She understands most likely there is treatment for her cancer in the future, did not at this juncture offer her the continuum of hospice care given her current understanding and reluctance to acknowledge the seriousness of her situation. Counseling for daughter and sister regarding the continuum of care, they do have an understanding of the seriousness of her illness, and her high risk for ongoing decline. Addressed questions and concerns as Toma her daughter will be the decision maker, if patient unable to and declines. Did fill out [place] paperwork for daughter, as well as also explored the continuum of options regarding care on discharge. We did review [facility] facility, long-term placement at SNF, adult family homes, at this point the patient would not be candidate for assisted living, and limited options for patients on [facility]. We did talk about hospice benefit, but does not include room and board, so still needs to pursue funding. Time Spent: 75 minutes with greater than 50% of this done in counseling and family meeting, with patient, coordination of care with hospitalist/surgeon/aids social worker and anticipatory guidance
--- NOTE | 2018-10-16 16:22 | CT Report ---
Reason: LIVER FAILURE, EVAL FO R PORTAL VEIN THROMBOSIS. Procedure Date: 10/16/2018 Accession Number: [id number] / [id number] Procedure: CT - Abdomen W/WO CPT Code: FULL RESULT: EXAM: CT ABDOMEN WITHOUT AND WITH CONTRAST. CT PELVIS WITH CONTRAST. EXAM DATE: 10/16/2018 01:44 PM. HISTORY: Recent colectomy, numerous liver lesions. Liver failure. Evaluate for portal vein thrombosis. COMPARISON: CT of the abdomen and pelvis from 10/14/2018, 09/30/2018. TECHNIQUE: Routine helical CT imaging was performed through the abdomen before and after administration of IV contrast: 90 cc Optiray 320. Images obtained of the pelvis during the portal venous phase. Enteric contrast: None. Reconstruction: Coronal and sagittal. In accordance with CT protocol optimization, one or more of the following dose reduction techniques were utilized for this exam: automated exposure control, adjustment of mA and/or KV based on patient size, or use of iterative reconstructive technique. FINDINGS: Lung Bases: Moderate bilateral pleural effusions have increased from the prior examination. There is bilateral lower lobe atelectasis. Liver: There are numerous liver lesions, which are hypoattenuating on all phases. Several of these lesions are new or enlarged from the prior examination. Honey Extractor lesions include: 1. A 2.9 x 2.2 cm lesion in segment 6/7 (36, image 24), previously 2.4 x 2.2 cm. 2. A 1.2 cm lesion in segment 3 (series 6, image 28), previously 0.6 cm. 3. A 2.9 x 1.7 cm lesion in segment 5 (series 6, image 31), which appears new. There are patchy areas of ill-defined hypoattenuation in the posterior right hepatic lobe, such as in segment 7 (series 6, image 19), which also appear new. There appears to be conventional hepatic arterial anatomy. Portal veins are patent. Gallbladder/Bile Ducts: There is dense material in the gallbladder, which has the appearance of vicarious contrast excretion. Bile ducts appear normal in caliber. Spleen: There is a small hypoattenuating focus in the inferior spleen (series 6, image 21), which is not definitely seen previously. Splenic size is within normal limits. Splenic vein is patent. Pancreas: Unremarkable. Adrenal Glands: Unremarkable. 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 There is pelvocaliectasis of the upper pole collecting system, similar to the prior examination. There are multiple nonobstructing upper pole calculi, measuring up to 5 mm (series 11, image 33). No focal renal lesion. Peritoneal Cavity/Bowel: There are postsurgical changes from subtotal colectomy with right lower quadrant ileostomy and long Keenan's pouch. No evidence of bowel obstruction. There is moderate volume peritoneal free fluid as well as foci of pneumoperitoneum, which are presumably postsurgical in nature. There is peritoneal enhancement in the pelvis, similar to the prior examination. Pelvis: Pelvic free fluid and peritoneal enhancement present, as described above. There is suggestion of mild endometrial thickening, measuring 9 mm (series 5, image 40). The ovaries enhance heterogeneously (series 2, image 25). No pelvic adenopathy. Vasculature: Moderate atherosclerotic calcification is demonstrated in the abdominal aorta and bilateral iliac arteries. No abdominal aortic aneurysm. The iliac arteries are diminutive. Bones: There is levoscoliosis of the thoracolumbar spine. No suspicious osseous lesion. Other: No retroperitoneal adenopathy. There is diffuse edema within the subcutaneous tissues. There are foci of gas in the subcutaneous tissues along the ventral incision site. IMPRESSION: 1. Postsurgical changes from subtotal colectomy with right lower quadrant ileostomy. No evidence of bowel obstruction. Small volume pneumoperitoneum is presumably postsurgical in nature. 2. Moderate peritoneal free fluid may also be postsurgical and/or sequela of hepatocellular dysfunction given the clinical history. Smooth peritoneal enhancement in the pelvis raises the possibility of peritonitis. Suggest correlation with clinical examination. If indicated, diagnostic paracentesis could be considered. 3. Numerous hypoattenuating lesions throughout the liver, concerning for metastases. However, several lesions are new or enlarged from the recent prior examination of 10/14/2018. Given the relatively rapid change, superinfection of metastases and/or separate liver abscesses are possible. Consider tissue sampling for further evaluation. No evidence for portal vein thrombus, as queried. 4. Solitary left kidney with duplicated collecting system. Mild pelvocaliectasis of the upper pole collecting system with nonobstructing nephrolithiasis has not significantly changed. 5. Anasarca with diffuse subcutaneous edema, moderate bilateral pleural effusions, and moderate peritoneal free fluid. 6. Suspect endometrial thickening. Further evaluation with pelvic ultrasound is recommended. [facility] The call report notification system was initiated by Dr. Bebeto Contreras at 03:55 PM on 10/16/2018. The above findings were discussed with Dr. Karrie Shafer by Dr. Bebeto Contreras at 04:20 PM on 10/16/2018.
[2018-10-16] MEDS ORDERED: cefTRIAXone 2 GM in SODIUM CHLORIDE 0.9% MINIBAG 100 ML IV STA (16:36)
[2018-10-16] MEDS ORDERED: metroNIDAZOLE 500 MG/100 ML 500 MG/100 ML BAG IV STA (16:36)
[2018-10-16 17:15] LABS: PT - PROTHROMBIN TIME 88.3 secs (9.9-12.6)
[2018-10-16 17:37] LABS: BASOPHILS % (AUTO) 0.3 %; EOSINOPHILS % (AUTO) 0.1 %; HGB - HEMOGLOBIN 11.2 g/dL (12.0-16.0); LYMPHOCYTES % (AUTO) 3.8 %; MEAN CORPUSCULAR HGB CONC 29.4 g/dL (32.0-36.0); MEAN CORPUSCULAR VOLUME 85.1 fL (81.0-99.0); MEAN PLATELET VOLUME 8.9 fL (7.9-10.8); MONOCYTES % (AUTO) 1.1 %; NEUTROPHILS % (AUTO) 94.7 %; PLT - PLATELET COUNT 99 10^3/uL (130-450); RED BLOOD COUNT 4.48 10^6/uL (4.20-5.40); RED CELL DISTRIBUTION WIDTH 29.6 % (12.0-15.0); WHITE BLOOD COUNT 20.6 x10^3/uL (4.8-10.8)
[2018-10-16 17:39] LABS: ABNORMAL LYMPHS % (MANUAL) 0 %
[2018-10-16 17:51] LABS: BAND NEUTROPHILS % (MANUAL) 11 %; EOSINOPHILS # (MANUAL) 0.2 10^3/uL (0-0.7); LYMPHOCYTES # (MANUAL) 0.8 10^3/uL (1.5-3.5); LYMPHOCYTES % (MANUAL) 2 %; NEUTROPHILS # (MANUAL) 19.6 10^3/uL (1.5-6.6); NEUTROPHILS % (MANUAL) 84 %
[2018-10-16 17:53] LABS: PLATELET ESTIMATE, MANUAL DECREASED (<130,000) (NORMAL); PLATELET MORPHOLOGY NORMAL APPEARANCE (NORMAL)
[2018-10-16 17:54] LABS: DIFFERENTIAL COMMENT MANUAL DIFFERENTIAL
[2018-10-16] MEDS: PPN (CLINIMIX E 4.25/5) 2,000 ML with MULTIVITAMIN 10 ML, TRACE ELEMENTS V CONC 1 ML IV SCH ×3 (18:37)
[2018-10-16] MEDS: FAT EMULSION 20% 250 ML IV SCH (18:38)
[2018-10-16] MEDS ORDERED: MULTIVITAMIN IV SCH ×3 (19:00)
[2018-10-16] MEDS ORDERED: TRACE ELEMENTS V IV SCH ×3 (19:00)
[2018-10-16] MEDS ORDERED: PPN IV SCH ×3 (19:00)
--- NOTE | 2018-10-17 02:03 | PROVIDER PROGRESS NOTE ---
Finisher Polisher Note - Finisher Polisher Note Finisher Polisher Note: A couple hours into the shift manager, the patient's SBP dropped into the 70's. At bedside she was very lethargic and pale. She was not alert like she had been during previous exams over the past days, when she would have readily recognized who I was. Her daughter Toma was at bedside. I presented the situation/concern to her. I explained that her mother was critically and terminally sick. In light of the radiologic findings of liver abscesses earlier in the day, INR of 8, lactic acid of 3 and SBP of 76 I had significant concern that she might not last the night. Though the patient had said no heroic measures earlier, her current full code status warranted that we pursue aggressive measures. Her daughter grasps and expresses full understanding of the situation. She said she would like her mother to be comfortable. The situation is emotionally tasking on her. She asked to give time for her aunt (mother's sister) to return before discussions continue. When her aunt arrived, the patient was more alert. Her sister expressed that Kirti is a very intelligent person and preferred to have things presented to her directly and as they were. Thus I summarized what had transpired from the first admission to her readmission and to the point we were talking. Her base diagnosis of metastatic cancer is further complicated by sepsis from liver abscesses and liver failure and we are significantly limited in the options we have. I encouraged that we look at the question of what goals we are seeking to achieve. After the explanation, the patient simply asked "Why". Then she asked for literature to read on her condition. I attempted to emphasized how much time was of the essence as far as decisions pertaining to the specific moment to which she blurted out, "Do you just expect me to lay here and give up?" She then complained about nasal discomfort from the NG tube. I explained that the NG tube was helping her remain comfortable by suctioning out gastric content which would otherwise accumulate and cause abdominal pain/cramps. Then she asked for 24 hours to sleep. I will point out that intermittently during this conversation, the patient would doze off and I would pause the conversation until I had her attention again. Also that her sister and daughter fully understand the situation. I proposed to step out of the room to give them time and privacy to discuss. In the meantime we will continue IV hydration with a goal MAP of at least 60. Will hold off on getting labs because so far the patient and/or family have been declining. No conclusion has yet been drawn to the conversation.
[2018-10-17] MEDS: metroNIDAZOLE 500 MG/100 ML 500 MG/100 ML BAG IV SCH ×3 (02:11→18:09)
[2018-10-17] MEDS: HYDROmorphone 0.5 MG/0.5 ML SYRINGE IVP PRN ×2 (03:25→19:29)
[2018-10-17] MEDS ORDERED: LORazepam 2 MG/ML VIAL IVP PRN (03:27)
[2018-10-17] MEDS: D5NS W/20 MEQ KCL 1,000 ML IV SCH ×3 (04:15→16:14)
[2018-10-17 07:47] LABS: BASOPHILS % (AUTO) 0.3 %; EOSINOPHILS % (AUTO) 0.1 %; MEAN CORPUSCULAR HEMOGLOBIN 25.8 pg (27.0-31.0); MEAN CORPUSCULAR HGB CONC 30.2 g/dL (32.0-36.0); MEAN CORPUSCULAR VOLUME 85.5 fL (81.0-99.0); MEAN PLATELET VOLUME 9.2 fL (7.9-10.8); MONOCYTES % (AUTO) 0.6 %; PLT - PLATELET COUNT 73 10^3/uL (130-450); RED BLOOD COUNT 3.89 10^6/uL (4.20-5.40); RED CELL DISTRIBUTION WIDTH 31.9 % (12.0-15.0)
[2018-10-17 07:50] LABS: ABNORMAL LYMPHS % (MANUAL) 0 %
[2018-10-17 07:51] LABS: PT - PROTHROMBIN TIME 106.6 secs (9.9-12.6)
[2018-10-17 08:00] LABS: INR 9.6 (0.8-1.2)
[2018-10-17 08:16] LABS: BAND NEUTROPHILS % (MANUAL) 9 %; LYMPHOCYTES # (MANUAL) 0.6 10^3/uL (1.5-3.5); LYMPHOCYTES % (MANUAL) 4 %; MONOCYTES # (MANUAL) 0.1 10^3/uL (0.0-1.0); NEUTROPHILS # (MANUAL) 13.3 10^3/uL (1.5-6.6); NEUTROPHILS % (MANUAL) 86 %
[2018-10-17 08:23] LABS: PLATELET ESTIMATE, MANUAL DECREASED (<130,000) (NORMAL); PLATELET MORPHOLOGY RARE GIANT PLATELETS (NORMAL)
[2018-10-17 08:24] LABS: DIFFERENTIAL COMMENT MANUAL DIFFERENTIAL
[2018-10-17 08:46] LABS: ALBUMIN 1.1 g/dL (3.2-5.5); ALBUMIN/GLOBULIN RATIO 0.6 (1.0-2.2); ALKALINE PHOSPHATASE 213 IU/L (42-121); AST ASPARTATE AMINOTRANSFERASE > 5200 IU/L (10-42); BILIRUBIN,TOTAL 3.9 mg/dL (0.2-1.0); BUN - BLOOD UREA NITROGEN 14 mg/dL (6-20); CARBON DIOXIDE - CO2 15 mmol/L (21-32); CHLORIDE 105 mmol/L (101-111); CREATININE 0.9 mg/dL (0.4-1.0); GFR - MDRD 63 (>89); GLUCOSE 324 mg/dL (70-100); SODIUM 131 mmol/L (135-145)
[2018-10-17 08:47] LABS: ALT ALANINE AMINOTRANSFERASE 2648 IU/L (10-60)
[2018-10-17] MEDS: PIPERACILLIN/TAZOBACTAM 3.375 GM in SODIUM CHLORIDE 0.9% MINIBAG 100 ML IV SCH ×2 (08:51→16:11)
--- NOTE | 2018-10-17 09:48 | CONSULTATION NOTE ---
Palliative Care Follow Up - Referral Referring Provider: Dr. Willam Yip Time of Visit: [id number] Referral setting: Hospitalized patient Referral Reason: Colon Cancer Stage IV/Liver mets/failure - Information Sources Records reviewed: RN notes reviewed, Previous records reviewed History/Review of Systems obtained from: Family, Caregiver Exam limitations: Clinical condition (patient drifty, and mildly confused) - History of Present Illness Update Brief HPI Update: Please see summary as of yesterday HPI 10/16 consult. She does continue to do poorly, she is now in critical condition. She did have a meeting with the chocolate finisher operator last night, she continues to have worsening labs, increasing LFTs and INR. Patient seen this a.m., very drifty, does not present with decision-making capacity, though still able to speak a few sentences, wanted "coffee", is unable to relay her understanding of her current condition, though is aware of the seriousness. Family meeting with both Toma London daughter who is D POA and sister, regarding patients decline and goals of care. They are trying to honor Kirti and her wish to be a fighter, but able to acknowledge seriousness and concern for an acute end of life event, aware she is deteriorating but also want to support her while she was still has some consciousness. Patient continues with intermittent anxiousness, and goal of family is to minimize her suffering. Medications/Allergies - Medications Active Medication List: Active Medications Benzocaine/Butamben/Tetracaine HCl (Cetacaine [place]) 1 sprays MM DAILY PRN PRN Reason: Throat Pain Hydralazine HCl (Apresoline Inj) 10 mg IVP TID PRN PRN Reason: Hypertensive Emergency Hydromorphone HCl (Dilaudid Inj Syringe) 0.5 mg IVP Q2H PRN PRN Reason: PAIN Last Admin: 10/17/18 03:25 Dose: 0.25 mg Potassium Chloride/Dextrose/Sod Cl () 1,000 mls @ 125 mls/hr IV .Q8H [facility]I Last Admin: 10/17/18 07:31 Dose: 125 mls/hr Famotidine (Pepcid 20 Mg/50 Ml) 50 mls @ 100 mls/hr IV DAILY FIFI Last Infusion: 10/16/18 09:33 Dose: Infused Piperacillin Sod/Tazobactam (Sod 3.375 gm/ Sodium Chloride) 100 mls @ 25 mls/hr IV Q8H [facility] Stop: 10/20/18 23:59 Last Admin: 10/17/18 08:51 Dose: 25 mls/hr Fat Emulsion Intravenous (Intralipid 20%) 250 mls @ 21 mls/hr IV 1900 [facility] Last Infusion: 10/17/18 06:45 Dose: Infused Multivitamins 10 ml/ Chromium/Copper/Manganese/Seleni/Zn 1 ml/ Amino Acids/Electrolytes/Dextrose 2,011 mls @ 83 mls/hr IV 1900 [facility] Last Admin: 10/16/18 18:37 Dose: 83 mls/hr Metronidazole (Flagyl 500 Mg/100 Ml) 500 mg in 100 mls @ 100 mls/hr IV Q8H [facility] Last Infusion: 10/17/18 03:19 Dose: Infused Mineral Oil (Cavilon) 1 applic TOP PRN PRN PRN Reason: Skin Care Last Admin: 10/15/18 16:58 Dose: 1 applic Ondansetron HCl (Zofran Inj) 4 mg IVP Q6HR PRN PRN Reason: Nausea / Vomiting Last Admin: 10/17/18 03:25 Dose: 4 mg Phenol/Menthol (Chloraseptic) 1 sprays MM Q2HR PRN PRN Reason: Throat Pain Polyethylene Glycol (Miralax) 17 gm PO DAILY [facility] Last Admin: 10/16/18 11:17 Dose: Not Given Prochlorperazine Edisylate (Compazine Inj) 10 mg IVP Q6HR PRN PRN Reason: Nausea / Vomiting Sodium Chloride (Normal Saline Flush 0.9%) 10 ml IVP 0100,0900,1700 [facility] Last Admin: 10/16/18 23:59 Dose: 10 ml Sodium Chloride (Normal Saline Flush 0.9%) 10 ml IVP PRN PRN PRN Reason: NEEDED PER PROVIDER ORDERS Last Admin: 10/15/18 16:40 Dose: 10 ml Sodium Chloride (Normal Saline Flush 0.9%) 20 ml IVP PRN PRN PRN Reason: After Blood Draw Last Admin: 10/16/18 14:18 Dose: 20 ml Omeprazole 20 mg PO DAILY 10/14/18 Potassium Chloride 20 meq PO DAILY 10/14/18 - Allergies Allergies/Adverse Reactions: Allergies Allergy/AdvReac Type Severity Reaction Status Date / Time Sulfa (Sulfonamide Allergy Rash Verified 10/14/18 10:58 Antibiotics) Review of Systems - Constitutional Constitutional: reports: Fatigue - Ears, Nose & Throat Ears, Nose & Throat: reports: Other (dislikes NG tube; intermittent restlessness and pulling at tube) - Gastrointestinal Gastrointestinal: reports: Other (ileostomy) - Neurological Neurological: reports: Memory problems, Slurred speech - Psychiatric Psychiatric: reports: Anxiety Physical Exam - Vital Signs Vital Signs: Vital Signs x48h Temp Pulse Resp BP Pulse Ox 10/17/18 09:00 114 H 11 L 90/60 98 10/17/18 08:30 109 H 9 L 98/56 L 97 10/17/18 08:00 36.3 C L 109 H 9 L 88/59 L 98 10/17/18 07:30 108 H 8 L 98/66 98 10/17/18 06:30 110 H 9 L 89/70 L 99 10/17/18 06:00 110 H 9 L 89/70 L 98 10/17/18 05:30 108 H 9 L 89/55 L 97 10/17/18 05:00 114 H 16 96/57 L 95 10/17/18 04:30 109 H 9 L 86/65 L 96 10/17/18 04:17 113 H 11 L 82/66 L 94 10/17/18 04:00 110 H 9 L 81/53 L 95 10/17/18 03:30 108 H 14 82/60 L 97 10/17/18 03:00 112 H 11 L 85/59 L 97 10/17/18 02:30 111 H 14 95/66 97 10/17/18 02:00 109 H 10 L 95/72 96 - Physical Exam General Appearance: positive: Mild distress, Anxious ENT: positive: Dry mucous membranes Neck: positive: No JVD, Trachea midline Cardiovascular: positive: Tachycardia Respiratory: positive: Other (moderate respiratory effort) Skin: positive: Jaundice, Pallor, Dryness Extremities: positive: No pedal edema Neurologic/Psychiatric: positive: Disoriented to place, Disoriented to time, Weakness, Slurred/abnml speech, Flat affect Palliative Care - POLST Patient has POLST: No POLST Status: DNR Pain: Pain unchanged (denies distress when asked) Tiredness/Fatigue: Severe (7-10) Drowsiness/Sedation: Severe (7-10) Anxiety: Moderate (4-6) - Palliative Care Discussion: 0900 Patient does not present with decision making capacity this am, had been appraised of situation during evening. Discussion continues regarding DNAR, daughter Toma London is DPOA, supported by her sister Camilla and conversations have had with patient, understand patients labs worsening, is deteriorating, and understands transitioning to end of life. Want to honor patients "fighting" spirit, and DNAR okay, but wait to withdraw care until patient no longer aware, discussed concern for bleeding, but hope with liver failure continue to become more sleepy and unaware. Their goal is not to cause her any undo distress, request anxiety be controlled with low dose of lorazepam would recommend 0.25 mg every 2-4 hours. Also the "bracelet" symbolic to patient, requesting not to use if not necessary. *At time of , they would like to dress her, sister making contact with [place].* Patient in her wakefulness wanted coffee, can use on toothettes for flavor, continue to support patient and family in this transition time, withdrawing care when ready, but confirmed DNAR. 1500 Sister Camilla at bedside. Patient resting comfortably, family grateful. Toma had agreed to new antibiotics and FPP, continued medical treatment, not available to follow up on current understanding and goals, she is home sleeping very exhausted. Other sister Carlota from [place], may or may not be able to come up tomorrow, but expecting her currently, she was here last week. Sister Camilla, feels Kirti has had a chance to say her goodbyes, and they have made plans with Darshan. Discussed a "timed trial" to see if patient has any positive response in condition with new changes in medical management over next 24 hours, but will readdress at that time, if not improving to transition to comfort care and withdraw supportive measures as appropriate. Sister verbalizes understanding and will share information with Toma, encourage to call me with questions, aware palliative care not available tomorrow. Results - Lab Results Lab results reviewed: Yes Fish Bones: 10/17/18 07:30 10/17/18 07:30 Lab and Imaging Results: Lab Results x24hrs 10/17/18 10/17/18 10/17/18 Range/Units 07:30 07:30 07:30 WBC 14.0 H (4.8-10.8) x10^3/uL RBC 3.89 L (4.20-5.40) 10^6/uL Hgb 10.0 L (12.0-16.0) g/dL Hct 33.2 L (37.0-47.0) % MCV 85.5 (81.0-99.0) fL MCH 25.8 L (27.0-31.0) pg MCHC 30.2 L (32.0-36.0) g/dL RDW 31.9 H (12.0-15.0) % Plt Count 73 L (130-450) 10^3/uL MPV 9.2 (7.9-10.8) fL Neut # (Auto) Not Reportable Lymph # (Auto) Not Reportable [place] # (Auto) Not Reportable Eos # (Auto) Not Reportable Baso # (Auto) Not Reportable Absolute Nucleated RBC Not Reportable Total Counted 100 Band Neuts % (Manual) 9 (0 - 10) % Reactive Lymphs % (Man) % Abnorm Lymph % (Manual) 0 % Nucleated RBC % Not Reportable Neutrophils # (Manual) 13.3 H (1.5-6.6) 10^3/uL Lymphocytes # (Manual) 0.6 L (1.5-3.5) 10^3/uL Monocytes # (Manual) 0.1 (0.0-1.0) 10^3/uL Eosinophils # (Manual) 0.0 (0-0.7) 10^3/uL Basophils # (Manual) 0.0 (0-0.1) 10^3/uL Differential Comment MANUAL DIFFERENTIAL Manual Slide Review WBC Morphology TOXIC VACUOLATION (NORMAL) Platelet Estimate DECREASED (<130,000) (NORMAL) Platelet Morphology RARE GIANT PLATELETS (NORMAL) RBC Morph Micro Appear 1+ HYPOCHROMASIA (NORMAL) PT 106.6 H (9.9-12.6) secs INR 9.6 H* (0.8-1.2) Sodium 131 L (135-145) mmol/L Potassium 6.3 H* (3.5-5.0) mmol/L Chloride 105 (101-111) mmol/L Carbon Dioxide 15 L (21-32) mmol/L Anion Gap 11.0 (6-13) BUN 14 (6-20) mg/dL Creatinine 0.9 (0.4-1.0) mg/dL Estimated GFR (MDRD) 63 L (>89) Glucose 324 H (70-100) mg/dL POC Whole Bld Glucose (70 - 100) mg/dL Lactic Acid (0.5-2.2) mmol/L Calcium 7.0 L (8.5-10.3) mg/dL Total Bilirubin 3.9 H (0.2-1.0) mg/dL AST > 5200 H (10-42) IU/L ALT 2648 H (10-60) IU/L Alkaline Phosphatase 213 H (42-121) IU/L Troponin I (<0.49) ng/mL Total Protein 3.0 L (6.7-8.2) g/dL Albumin 1.1 L (3.2-5.5) g/dL Globulin 1.9 L (2.1-4.2) g/dL Albumin/Globulin Ratio 0.6 L (1.0-2.2) 10/16/18 10/16/18 10/16/18 Range/Units 17:01 16:59 16:59 WBC (4.8-10.8) x10^3/uL RBC (4.20-5.40) 10^6/uL Hgb (12.0-16.0) g/dL Hct (37.0-47.0) % MCV (81.0-99.0) fL MCH (27.0-31.0) pg MCHC (32.0-36.0) g/dL RDW (12.0-15.0) % Plt Count (130-450) 10^3/uL MPV (7.9-10.8) fL Neut # (Auto) Lymph # (Auto) [place] # (Auto) Eos # (Auto) Baso # (Auto) Absolute Nucleated RBC Total Counted Band Neuts % (Manual) (0 - 10) % Reactive Lymphs % (Man) % Abnorm Lymph % (Manual) % Nucleated RBC % Neutrophils # (Manual) (1.5-6.6) 10^3/uL Lymphocytes # (Manual) (1.5-3.5) 10^3/uL Monocytes # (Manual) (0.0-1.0) 10^3/uL Eosinophils # (Manual) (0-0.7) 10^3/uL Basophils # (Manual) (0-0.1) 10^3/uL Differential Comment Manual Slide Review WBC Morphology (NORMAL) Platelet Estimate (NORMAL) Platelet Morphology (NORMAL) RBC Morph Micro Appear (NORMAL) PT 88.3 H (9.9-12.6) secs INR 8.0 H* (0.8-1.2) Sodium (135-145) mmol/L Potassium (3.5-5.0) mmol/L Chloride (101-111) mmol/L Carbon Dioxide (21-32) mmol/L Anion Gap (6-13) BUN (6-20) mg/dL Creatinine (0.4-1.0) mg/dL Estimated GFR (MDRD) (>89) Glucose (70-100) mg/dL POC Whole Bld Glucose 199 H (70 - 100) mg/dL Lactic Acid (0.5-2.2) mmol/L Calcium (8.5-10.3) mg/dL Total Bilirubin (0.2-1.0) mg/dL AST (10-42) IU/L ALT (10-60) IU/L Alkaline Phosphatase (42-121) IU/L Troponin I 0.05 (<0.49) ng/mL Total Protein (6.7-8.2) g/dL Albumin (3.2-5.5) g/dL Globulin (2.1-4.2) g/dL Albumin/Globulin Ratio (1.0-2.2) 10/16/18 10/16/18 10/16/18 Range/Units 16:59 14:15 11:45 WBC 20.6 H (4.8-10.8) x10^3/uL RBC 4.48 (4.20-5.40) 10^6/uL Hgb 11.2 L (12.0-16.0) g/dL Hct 38.2 (37.0-47.0) % MCV 85.1 (81.0-99.0) fL MCH 25.0 L (27.0-31.0) pg MCHC 29.4 L (32.0-36.0) g/dL RDW 29.6 H (12.0-15.0) % Plt Count 99 L (130-450) 10^3/uL MPV 8.9 (7.9-10.8) fL Neut # (Auto) Not Reportable Lymph # (Auto) Not Reportable [place] # (Auto) Not Reportable Eos # (Auto) Not Reportable Baso # (Auto) Not Reportable Absolute Nucleated RBC Not Reportable Total Counted 100 Band Neuts % (Manual) 11 H (0 - 10) % Reactive Lymphs % (Man) 2 % Abnorm Lymph % (Manual) 0 % Nucleated RBC % Not Reportable Neutrophils # (Manual) 19.6 H (1.5-6.6) 10^3/uL Lymphocytes # (Manual) 0.8 L (1.5-3.5) 10^3/uL Monocytes # (Manual) 0.0 (0.0-1.0) 10^3/uL Eosinophils # (Manual) 0.2 (0-0.7) 10^3/uL Basophils # (Manual) 0.0 (0-0.1) 10^3/uL Differential Comment MANUAL DIFFERENTIAL Manual Slide Review Indicated WBC Morphology 1+ TOXIC GRANULATION (NORMAL) Platelet Estimate DECREASED (<130,000) (NORMAL) Platelet Morphology NORMAL APPEARANCE (NORMAL) RBC Morph Micro Appear 1+ GUILHERME CELLS (NORMAL) PT (9.9-12.6) secs INR (0.8-1.2) Sodium (135-145) mmol/L Potassium (3.5-5.0) mmol/L Chloride (101-111) mmol/L Carbon Dioxide (21-32) mmol/L Anion Gap (6-13) BUN (6-20) mg/dL Creatinine (0.4-1.0) mg/dL Estimated GFR (MDRD) (>89) Glucose (70-100) mg/dL POC Whole Bld Glucose 169 H (70 - 100) mg/dL Lactic Acid 3.0 H* (0.5-2.2) mmol/L Calcium (8.5-10.3) mg/dL Total Bilirubin (0.2-1.0) mg/dL AST (10-42) IU/L ALT (10-60) IU/L Alkaline Phosphatase (42-121) IU/L Troponin I (<0.49) ng/mL Total Protein (6.7-8.2) g/dL Albumin (3.2-5.5) g/dL Globulin (2.1-4.2) g/dL Albumin/Globulin Ratio (1.0-2.2) 10/16/18 Range/Units 07:30 WBC (4.8-10.8) x10^3/uL RBC (4.20-5.40) 10^6/uL Hgb (12.0-16.0) g/dL Hct (37.0-47.0) % MCV (81.0-99.0) fL MCH (27.0-31.0) pg MCHC (32.0-36.0) g/dL RDW (12.0-15.0) % Plt Count (130-450) 10^3/uL MPV (7.9-10.8) fL Neut # (Auto) Lymph # (Auto) [place] # (Auto) Eos # (Auto) Baso # (Auto) Absolute Nucleated RBC Total Counted Band Neuts % (Manual) (0 - 10) % Reactive Lymphs % (Man) % Abnorm Lymph % (Manual) % Nucleated RBC % Neutrophils # (Manual) (1.5-6.6) 10^3/uL Lymphocytes # (Manual) (1.5-3.5) 10^3/uL Monocytes # (Manual) (0.0-1.0) 10^3/uL Eosinophils # (Manual) (0-0.7) 10^3/uL Basophils # (Manual) (0-0.1) 10^3/uL Differential Comment Manual Slide Review WBC Morphology (NORMAL) Platelet Estimate (NORMAL) Platelet Morphology (NORMAL) RBC Morph Micro Appear (NORMAL) PT (9.9-12.6) secs INR (0.8-1.2) Sodium (135-145) mmol/L Potassium (3.5-5.0) mmol/L Chloride (101-111) mmol/L Carbon Dioxide (21-32) mmol/L Anion Gap (6-13) BUN (6-20) mg/dL Creatinine (0.4-1.0) mg/dL Estimated GFR (MDRD) (>89) Glucose (70-100) mg/dL POC Whole Bld Glucose (70 - 100) mg/dL Lactic Acid 4.6 H* (0.5-2.2) mmol/L Calcium (8.5-10.3) mg/dL Total Bilirubin (0.2-1.0) mg/dL AST (10-42) IU/L ALT (10-60) IU/L Alkaline Phosphatase (42-121) IU/L Troponin I (<0.49) ng/mL Total Protein (6.7-8.2) g/dL Albumin (3.2-5.5) g/dL Globulin (2.1-4.2) g/dL Albumin/Globulin Ratio (1.0-2.2) Impression and Recommendations - Palliative Care Impression: This is a 63-year-old woman with metastatic colon cancer stage IV to the liver, now in critical condition with worsening liver failure. Family continues to struggle with complex situation, patient is deteriorating, balancing ongoing patient's wishes in the context of goals of care as well as acknowledging her decline. Palliative care providing support regarding ongoing further definition of goals of care and family support. Recommendations/Counseling Done: 1. Anxiety. Patient with underlying anxiety disorder, recommend low dose lorazepam 0.25 mg every 2-4 hours as needed. Family goals are to maximize her comfort and distress, aware she is transitioning, hoping to avoid causing increase confusion or distress until she is aware. She has very much always wanted to be in control. 2. Advanced care planning. Patient deteriorating quickly, patient without decision making capacity currently, but has expressed no heroic measures, this would be congruent currently with DNAR/DNI, but will withdraw care as patient deteriorates i. Patient has always been "fighter" and family willing to transition to comfort measures but want step deras approach. Sister contacting Darshan Toma Anayarens daughter and DPOA confirmed decision and wishes for DNR/DNI, communicated to hospitalist. Time Spent: 45 minutes with good and 50% of this done in counseling and support regarding goals of care, advanced care planning, and anticipatory guidance
[2018-10-17] MEDS: FAMOTIDINE 20 MG/50 ML 50 ML IV SCH (10:32)
[2018-10-17] MEDS ORDERED: DEXTROSE 50% ABBOJECT 25 GM/50 ML SYRINGE IVP ONE (10:32)
[2018-10-17] MEDS ORDERED: INSULIN REGULAR HUMAN 100 UNIT/1 ML 10 ML MDV IVP STA (10:33)
[2018-10-17] MEDS: POLYETHYLENE GLYCOL 3350 17 GM PACKET PO SCH (10:41)
[2018-10-17] MEDS: SODIUM CHLORIDE FLUSH 0.9% 10 ML SYRINGE IVP SCH ×2 (10:45→17:47)
[2018-10-17] MEDS: LORazepam 2 MG/ML VIAL IVP PRN ×3 (10:56→18:25)
[2018-10-17] MEDS: SODIUM CHLORIDE FLUSH 0.9% 10 ML SYRINGE IVP PRN ×9 (11:40→19:29)
[2018-10-17] MEDS: CIPROFLOXACIN 400 MG/200 ML 200 ML IV SCH ×2 (11:42→22:42)
[2018-10-17 12:02] LABS: HEPATITIS A IGM NON-REACTIVE (NON-REACTIVE); HEPATITIS B CORE ANTIBODY IGM NON-REACTIVE (NON-REACTIVE); HEPATITIS B SURFACE ANTIGEN NON-REACTIVE (NON-REACTIVE); HEPATITIS C ANTIBODY NON-REACTIVE (NON-REACTIVE)
[2018-10-17] MEDS: MIN OIL/DIMETHICON/COCONUT OIL 92 GM TUBE TOP PRN (12:07)
--- NOTE | 2018-10-17 12:24 | PROVIDER PROGRESS NOTE ---
Assessment/Plan - Problem List (1) Septic shock Assessment/Plan: BP has been 90 systolic for about 1 day, with evidence of septic shock with elevated Lactic Acid level. She is in critical condition. Her urine output is decreasing and she needs increased intravascular volume. The daughter confirms that the patient wants aggressive medical care (like antibiotics, fluids and ppn), but "no heroic measures". Continue iv antibiotics and adjust (see below). The Palliative Care LEGAL EDITOR, Dali Akhtar, was able to ascertain that the patient will be a DNR/DNI. Will change the Code Status therefore. The patient and family have not requested comfort care yet however. (2) Liver failure, acute Qualifiers: Hepatic coma status: without hepatic coma Qualified Code(s): K72.00 - Acute and subacute hepatic failure without coma Assessment/Plan: The LFTs are >5000s and INR is 9. I discussed with the daughter, Toma at bedside, the need to treat with FFP, and she wants medical treatment ordered, just "no heroic measures". Will order type and cross and transfuse 2 U of FFP. Follow labs, draw blood from CVP line. (3) Hyperkalemia Assessment/Plan: Will treat with iv Insulin and amp of D50. Follow BMP bid. (4) Klebsiella infection Assessment/Plan: The peritoneal fluid has grown Klebsiella by culture. sensitivities show high MICs to Piperacillin (and she is on Pip/Tazo). Will add iv Ciprofloxacin, which has better sensitivities. (5) E. coli UTI (urinary tract infection) Assessment/Plan: Continue current iv regimen for E coli UTI coverage. (6) Hyperglycemia Assessment/Plan: Continue iv fluids and ppn and ss Insulin coverage. (7) Malignant cachexia Assessment/Plan: Continue iv ppn. (8) Adenocarcinoma of colon metastatic to liver Assessment/Plan: The liver lesions seen on CT yesterday were felt to be either rapidly enlarging mets or liver abscesses. Her prognosis is poor. The Mail Handler Equipment Operator had a long family discussion last night reviewing her entire courses, and Dali Akhtar NP has had several meetings with them. A DNR has been established since this a.m. by Dali Akhtar. (9) Postoperative leak Assessment/Plan: Continue ng tube and management as per surgery (10) Anxiety Assessment/Plan: She requested restart of anxiolytics and the daughter also does not want her uncomfortable. Will resume Ativan, as advised by Dali Akhtar NP. - Current Meds Current Meds: Current Medications Generic Name Dose Route Start Last Admin Trade Name Freq PRN Reason Stop Dose Admin Hydromorphone HCl 0.5 mg 10/14/18 18:56 10/17/18 03:25 Dilaudid Inj Syringe IVP 0.25 mg Q2H PRN Administration PAIN Potassium Chloride/Dextrose/Sod Cl 1,000 mls @ 125 mls/hr 10/14/18 16:00 10:45 IV 0 mls/hr .Q8H FIFI Infusion Famotidine 50 mls @ 100 mls/hr 10/15/18 09:00 10/17/18 11:05 Pepcid 20 Mg/50 Ml IV 0 mls/hr DAILY FIFI Infusion Piperacillin Sod/Tazobactam 100 mls @ 25 mls/hr 10/15/18 16:00 10/17/18 08:51 Sod 3.375 gm/ Sodium Chloride IV 10/20/18 23:59 25 mls/hr Q8H FIFI Administration Fat Emulsion Intravenous 250 mls @ 21 mls/hr 10/15/18 19:00 10/17/18 06:45 Intralipid 20% IV Infused 1900 FIFI Infusion Multivitamins 10 ml/ Chromium/ 2,011 mls @ 83 mls/hr 10/16/18 19:00 10/16/18 18:37 Copper/Manganese/Seleni/Zn 1 IV 83 mls/hr ml/ Amino Acids/Electrolytes/ 1900 FIFI Administration Dextrose Metronidazole 500 mg in 100 mls @ 100 mls/hr 10/17/18 02:00 10/17/18 11:45 Flagyl 500 Mg/100 Ml IV Infused Q8H FIFI Infusion Ciprofloxacin 200 mls @ 200 mls/hr 10/17/18 11:00 10/17/18 11:42 Cipro 400 Mg/200 Ml IV 200 mls/hr Q12H FIFI Administration Lorazepam 0.25 mg 10/17/18 10:35 10/17/18 10:56 Ativan Inj (Vial) IVP 0.25 mg Q2H PRN Administration Anxiety Mineral Oil 1 applic 10/15/18 11:41 10/17/18 12:07 Cavilon TOP 1 applic PRN PRN Administration Skin Care Ondansetron HCl 4 mg 10/14/18 15:47 10/17/18 03:25 Zofran Inj IVP 4 mg Q6HR PRN Administration Nausea / Vomiting Polyethylene Glycol 17 gm 10/15/18 09:00 10/17/18 10:41 Miralax PO Not Given DAILY FIFI Sodium Chloride 10 ml 10/15/18 01:00 10/17/18 10:45 Normal Saline Flush 0.9% IVP Not Given 0100,0900,1700 FIFI Sodium Chloride 10 ml 10/14/18 18:47 10/17/18 11:40 Normal Saline Flush 0.9% IVP 10 ml PRN PRN Administration NEEDED PER PROVIDER ORDERS Sodium Chloride 20 ml 10/16/18 12:37 10/16/18 14:18 Normal Saline Flush 0.9% IVP 20 ml PRN PRN Administration After Blood Draw - Lab Result Fish Bone Diagrams: 10/17/18 07:30 10/17/18 07:30 - Additional Planning My Orders: My Active Orders 10/16/18 12:37 Sodium Chloride Flush 0.9% [Normal Saline Flush 0.9%] 20 ml IVP PRN PRN 10/16/18 16:36 Vital Signs [RC] Q30M 10/16/18 16:45 Severe Sepsis Onset Time [OTHERS] ONCE 10/16/18 16:59 CULTURE, BLOOD #1 [RM] Stat 10/16/18 19:00 Multivitamin [Infuvite] 10 ml Trace Elements V Conc [Multitrace-5 Conc Vial] 1 ml Ppn (Clinimix E 4.25/5) [Clinimix E 4.25%-5% Solution] 2,000 ml IV 1900 10/17/18 FRESH FROZEN PLASMA Stat TYPE AND SCREEN Stat 10/17/18 02:00 metroNIDAZOLE 500 MG/100 ML [Flagyl 500 mg/100 ml] 500 mg in 100 ml IV Q8H 10/17/18 10:35 LORazepam INJ [Ativan Inj (Vial)] 0.25 mg IVP Q2H PRN 10/17/18 11:00 Ciprofloxacin 400 mg/200 ml [Cipro 400 mg/200 ml] 200 ml IV Q12H 10/17/18 12:19 Transfuse Fresh Frozen Plasma [RC] .ONCE 10/18/18 05:00 PT WITH INR [COAG] DAILYLAB 10/19/18 05:00 PT WITH INR [COAG] DAILYLAB 10/20/18 05:00 PT WITH INR [COAG] DAILYLAB Subjective - Subjective Patient Reports: Other (She was intermittently conversing this am, then got Ativan and is sleeping) Objective Vital Signs: Vital Signs - 24 hr 10/16/18 10/16/18 10/16/18 13:00 14:00 15:00 Temperature 36.5 C Heart Rate [ 113 H 112 H 117 H Brachial] Respiratory 15 10 L 12 Rate Blood Pressure 103/60 92/69 88/65 L [Left Brachial artery] O2 Saturation 98 97 97 10/16/18 10/16/18 10/16/18 16:00 16:36 17:06 Temperature 36.7 C Heart Rate [ 112 H 119 H 118 H Brachial] Respiratory 12 12 13 Rate Blood Pressure 94/74 93/74 107/81 H [Left Brachial artery] O2 Saturation 98 96 94 10/16/18 10/16/18 10/16/18 18:00 18:30 19:00 Temperature 36.6 C Heart Rate [ 111 H 117 H 114 H Brachial] Respiratory 13 13 12 Rate Blood Pressure 105/88 H 79/55 L 88/70 L [Left Brachial artery] O2 Saturation 96 96 96 10/16/18 10/16/18 10/16/18 19:30 20:00 20:30 Temperature Heart Rate [ 111 H 111 H 112 H Brachial] Respiratory 12 10 L 8 L Rate Blood Pressure 81/64 L 90/58 L 79/56 L [Left Brachial artery] O2 Saturation 96 96 97 10/16/18 10/16/18 10/16/18 21:00 21:30 22:00 Temperature Heart Rate [ 127 H 118 H 112 H Brachial] Respiratory 15 12 10 L Rate Blood Pressure 101/74 101/68 89/51 L [Left Brachial artery] O2 Saturation 95 98 96 10/16/18 10/16/18 10/16/18 22:30 23:00 23:30 Temperature 36.7 C Heart Rate [ 112 H 113 H 115 H Brachial] Respiratory 14 12 9 L Rate Blood Pressure 93/74 97/83 H 94/64 [Left Brachial artery] O2 Saturation 96 96 97 10/17/18 10/17/18 10/17/18 00:00 00:30 01:00 Temperature Heart Rate [ 116 H 113 H 112 H Brachial] Respiratory 11 L 8 L 10 L Rate Blood Pressure 95/55 L 100/73 93/61 [Left Brachial artery] O2 Saturation 97 97 99 10/17/18 10/17/18 10/17/18 01:30 02:00 02:30 Temperature Heart Rate [ 113 H 109 H 111 H Brachial] Respiratory 10 L 10 L 14 Rate Blood Pressure 96/66 95/72 95/66 [Left Brachial artery] O2 Saturation 97 96 97 10/17/18 10/17/18 10/17/18 03:00 03:30 04:00 Temperature Heart Rate [ 112 H 108 H 110 H Brachial] Respiratory 11 L 14 9 L Rate Blood Pressure 85/59 L 82/60 L 81/53 L [Left Brachial artery] O2 Saturation 97 97 95 10/17/18 10/17/18 10/17/18 04:17 04:30 05:00 Temperature Heart Rate [ 113 H 109 H 114 H Brachial] Respiratory 11 L 9 L 16 Rate Blood Pressure 82/66 L 86/65 L 96/57 L [Left Brachial artery] O2 Saturation 94 96 95 10/17/18 10/17/18 10/17/18 05:30 06:00 06:30 Temperature Heart Rate [ 108 H 110 H 110 H Brachial] Respiratory 9 L 9 L 9 L Rate Blood Pressure 89/55 L 89/70 L 89/70 L [Left Brachial artery] O2 Saturation 97 98 99 10/17/18 10/17/18 10/17/18 07:30 08:00 08:30 Temperature 36.3 C L Heart Rate [ 108 H 109 H 109 H Brachial] Respiratory 8 L 9 L 9 L Rate Blood Pressure 98/66 88/59 L 98/56 L [Left Brachial artery] O2 Saturation 98 98 97 10/17/18 10/17/18 10/17/18 09:00 09:30 10:00 Temperature Heart Rate [ 114 H 118 H 117 H Brachial] Respiratory 11 L 15 16 Rate Blood Pressure 90/60 105/57 L 100/5 L [Left Brachial artery] O2 Saturation 98 96 98 10/17/18 10/17/18 10/17/18 10:30 11:00 11:30 Temperature Heart Rate [ 118 H 110 H 109 H Brachial] Respiratory 14 9 L 9 L Rate Blood Pressure 92/54 L 86/49 L 85/58 L [Left Brachial artery] O2 Saturation 97 96 94 10/17/18 12:00 Temperature 36.4 C L Heart Rate [ 135 H Brachial] Respiratory 25 H Rate Blood Pressure 139/68 H [Left Brachial artery] O2 Saturation 92 Oxygen O2 Source Room air I&O (Last 24 Hrs): Intake and Output Totals x24h 10/15/18 10/16/18 10/17/18 23:59 23:59 23:59 Intake Total 4131.416 6473.520 2010.250 Output Total 2065 1425 100 Balance 2066.416 5048.520 1911.250 General: Other (Sedated) HEENT: Other (Icteric skin) Neck: Supple Neuro: Other (Sedated) Respiratory: No respiratory distress Abdomen: Soft Extremities: Other (trace edema) - Results Results: Laboratory Results WBC 14.0 x10^3/uL (4.8-10.8) H 10/17/18 07:30 RBC 3.89 10^6/uL (4.20-5.40) L 10/17/18 07:30 Hgb 10.0 g/dL (12.0-16.0) L 10/17/18 07:30 Hct 33.2 % (37.0-47.0) L 10/17/18 07:30 MCV 85.5 fL (81.0-99.0) 10/17/18 07:30 MCH 25.8 pg (27.0-31.0) L 10/17/18 07:30 MCHC 30.2 g/dL (32.0-36.0) L 10/17/18 07:30 RDW 31.9 % (12.0-15.0) H 10/17/18 07:30 Plt Count 73 10^3/uL (130-450) L 10/17/18 07:30 MPV 9.2 fL (7.9-10.8) 10/17/18 07:30 Neut # (Auto) Not Reportable 10/17/18 07:30 Lymph # (Auto) Not Reportable 10/17/18 07:30 [place] # (Auto) Not Reportable 10/17/18 07:30 Eos # (Auto) Not Reportable 10/17/18 07:30 Baso # (Auto) Not Reportable 10/17/18 07:30 Absolute Nucleated RBC Not Reportable 10/17/18 07:30 Total Counted 100 10/17/18 07:30 Band Neuts % (Manual) 9 % (0-10) 10/17/18 07:30 Reactive Lymphs % (Man) 2 % 10/16/18 16:59 Abnorm Lymph % (Manual) 0 % 10/17/18 07:30 Nucleated RBC % Not Reportable 10/17/18 07:30 Neutrophils # (Manual) 13.3 10^3/uL (1.5-6.6) H 10/17/18 07:30 Lymphocytes # (Manual) 0.6 10^3/uL (1.5-3.5) L 10/17/18 07:30 Monocytes # (Manual) 0.1 10^3/uL (0.0-1.0) 10/17/18 07:30 Eosinophils # (Manual) 0.0 10^3/uL (0-0.7) 10/17/18 07:30 Basophils # (Manual) 0.0 10^3/uL (0-0.1) 10/17/18 07:30 Differential Comment MANUAL DIFFERENTIAL 10/17/18 07:30 Manual Slide Review Indicated 10/16/18 16:59 WBC Morphology 1+ TOXIC GRANULATION (NORMAL) TOXIC VACUOLATION (NORMAL) 10/17/18 07:30 WBC Morphology 1+ TOXIC GRANULATION (NORMAL) TOXIC VACUOLATION (NORMAL) 10/17/18 07:30 Platelet Estimate DECREASED (<130,000) (NORMAL) 10/17/18 07:30 Platelet Morphology RARE GIANT PLATELETS (NORMAL) 10/17/18 07:30 RBC Morph Micro Appear 2+ TARGET CELLS (NORMAL) 3+ HYPOCHROMASIA (NORMAL) 1+ OVALOCYTES (NORMAL) 3+ ANISOCYTOSIS (NORMAL) 1+ POLYCHROMASIA (NORMAL) 10/14/18 13:39 RBC Morph Micro Appear 2+ ANISOCYTOSIS (NORMAL) 1+ MICROCYTOSIS (NORMAL) 1+ HYPOCHROMASIA (NORMAL) 10/15/18 05:00 RBC Morph Micro Appear 2+ ANISOCYTOSIS (NORMAL) 1+ MICROCYTOSIS (NORMAL) 1+ HYPOCHROMASIA (NORMAL) 10/15/18 05:00 RBC Morph Micro Appear 2+ ANISOCYTOSIS (NORMAL) 1+ MICROCYTOSIS (NORMAL) 1+ HYPOCHROMASIA (NORMAL) 10/15/18 05:00 RBC Morph Micro Appear 2+ ANISOCYTOSIS (NORMAL) 1+ HYPOCHROMASIA (NORMAL) 1+ MICROCYTOSIS (NORMAL) 10/16/18 04:25 RBC Morph Micro Appear 2+ ANISOCYTOSIS (NORMAL) 1+ HYPOCHROMASIA (NORMAL) 1+ MICROCYTOSIS (NORMAL) 10/16/18 04:25 RBC Morph Micro Appear 2+ ANISOCYTOSIS (NORMAL) 1+ HYPOCHROMASIA (NORMAL) 1+ MICROCYTOSIS (NORMAL) 10/16/18 04:25 RBC Morph Micro Appear 3+ ANISOCYTOSIS (NORMAL) 2+ MICROCYTOSIS (NORMAL) 2+ HYPOCHROMASIA (NORMAL) 2+ POIKILOCYTOSIS (NORMAL) 1+ POLYCHROMASIA (NORMAL) 1+ TEARDROP CELLS (NORMAL) 1+ SCHISTOCYTES (NORMAL) 1+ OVALOCYTES (NORMAL) 1+ GUILHERME CELLS (NORMAL) 10/16/18 16:59 RBC Morph Micro Appear 3+ ANISOCYTOSIS (NORMAL) 2+ MICROCYTOSIS (NORMAL) 2+ HYPOCHROMASIA (NORMAL) 2+ POIKILOCYTOSIS (NORMAL) 1+ POLYCHROMASIA (NORMAL) 1+ TEARDROP CELLS (NORMAL) 1+ SCHISTOCYTES (NORMAL) 1+ OVALOCYTES (NORMAL) 1+ GUILHERME CELLS (NORMAL) 10/16/18 16:59 RBC Morph Micro Appear 3+ ANISOCYTOSIS (NORMAL) 2+ MICROCYTOSIS (NORMAL) 2+ HYPOCHROMASIA (NORMAL) 2+ POIKILOCYTOSIS (NORMAL) 1+ POLYCHROMASIA (NORMAL) 1+ TEARDROP CELLS (NORMAL) 1+ SCHISTOCYTES (NORMAL) 1+ OVALOCYTES (NORMAL) 1+ GUILHERME CELLS (NORMAL) 10/16/18 16:59 RBC Morph Micro Appear 3+ ANISOCYTOSIS (NORMAL) 2+ MICROCYTOSIS (NORMAL) 2+ HYPOCHROMASIA (NORMAL) 2+ POIKILOCYTOSIS (NORMAL) 1+ POLYCHROMASIA (NORMAL) 1+ TEARDROP CELLS (NORMAL) 1+ SCHISTOCYTES (NORMAL) 1+ OVALOCYTES (NORMAL) 1+ GUILHERME CELLS (NORMAL) 10/16/18 16:59 RBC Morph Micro Appear 3+ ANISOCYTOSIS (NORMAL) 2+ MICROCYTOSIS (NORMAL) 2+ HYPOCHROMASIA (NORMAL) 2+ POIKILOCYTOSIS (NORMAL) 1+ POLYCHROMASIA (NORMAL) 1+ TEARDROP CELLS (NORMAL) 1+ SCHISTOCYTES (NORMAL) 1+ OVALOCYTES (NORMAL) 1+ GUILHERME CELLS (NORMAL) 10/16/18 16:59 RBC Morph Micro Appear 3+ ANISOCYTOSIS (NORMAL) 2+ MICROCYTOSIS (NORMAL) 2+ HYPOCHROMASIA (NORMAL) 2+ POIKILOCYTOSIS (NORMAL) 1+ POLYCHROMASIA (NORMAL) 1+ TEARDROP CELLS (NORMAL) 1+ SCHISTOCYTES (NORMAL) 1+ OVALOCYTES (NORMAL) 1+ GUILHERME CELLS (NORMAL) 10/16/18 16:59 RBC Morph Micro Appear 3+ ANISOCYTOSIS (NORMAL) 2+ MICROCYTOSIS (NORMAL) 2+ HYPOCHROMASIA (NORMAL) 2+ POIKILOCYTOSIS (NORMAL) 1+ POLYCHROMASIA (NORMAL) 1+ TEARDROP CELLS (NORMAL) 1+ SCHISTOCYTES (NORMAL) 1+ OVALOCYTES (NORMAL) 1+ GUILHERME CELLS (NORMAL) 10/16/18 16:59 RBC Morph Micro Appear 3+ ANISOCYTOSIS (NORMAL) 2+ MICROCYTOSIS (NORMAL) 2+ HYPOCHROMASIA (NORMAL) 2+ POIKILOCYTOSIS (NORMAL) 1+ POLYCHROMASIA (NORMAL) 1+ TEARDROP CELLS (NORMAL) 1+ SCHISTOCYTES (NORMAL) 1+ OVALOCYTES (NORMAL) 1+ GUILHERME CELLS (NORMAL) 10/16/18 16:59 RBC Morph Micro Appear 3+ ANISOCYTOSIS (NORMAL) 2+ MICROCYTOSIS (NORMAL) 2+ HYPOCHROMASIA (NORMAL) 2+ POIKILOCYTOSIS (NORMAL) 1+ POLYCHROMASIA (NORMAL) 1+ TEARDROP CELLS (NORMAL) 1+ SCHISTOCYTES (NORMAL) 1+ OVALOCYTES (NORMAL) 1+ GUILHERME CELLS (NORMAL) 10/16/18 16:59 RBC Morph Micro Appear 3+ ANISOCYTOSIS (NORMAL) 1+ HYPOCHROMASIA (NORMAL) 10/17/18 07:30 RBC Morph Micro Appear 3+ ANISOCYTOSIS (NORMAL) 1+ HYPOCHROMASIA (NORMAL) 10/17/18 07:30 PT 106.6 secs (9.9-12.6) H 10/17/18 07:30 INR 9.6 (0.8-1.2) H* 10/17/18 07:30 Sodium 131 mmol/L (135-145) L 10/17/18 07:30 Potassium 6.3 mmol/L (3.5-5.0) H* 10/17/18 07:30 Chloride 105 mmol/L (101-111) 10/17/18 07:30 Carbon Dioxide 15 mmol/L (21-32) L 10/17/18 07:30 Anion Gap 11.0 (6-13) 10/17/18 07:30 BUN 14 mg/dL (6-20) 10/17/18 07:30 Creatinine 0.9 mg/dL (0.4-1.0) 10/17/18 07:30 Estimated GFR (MDRD) 63 (>89) L 10/17/18 07:30 Glucose 324 mg/dL (70-100) H 10/17/18 07:30 POC Whole Bld Glucose 199 mg/dL (70 - 100) H 10/16/18 17:01 Lactic Acid 3.0 mmol/L (0.5-2.2) H* 10/16/18 14:15 Calcium 7.0 mg/dL (8.5-10.3) L 10/17/18 07:30 Phosphorus 2.1 mg/dL (2.5-4.6) L 10/16/18 04:25 Magnesium 1.7 mg/dL (1.7-2.8) 10/16/18 04:25 Total Bilirubin 3.9 mg/dL (0.2-1.0) H 10/17/18 07:30 AST > 5200 IU/L (10-42) H 10/17/18 07:30 ALT 2648 IU/L (10-60) H 10/17/18 07:30 Alkaline Phosphatase 213 IU/L (42-121) H 10/17/18 07:30 Troponin I 0.05 ng/mL (<0.49) 10/16/18 16:59 Total Protein 3.0 g/dL (6.7-8.2) L 10/17/18 07:30 Albumin 1.1 g/dL (3.2-5.5) L 10/17/18 07:30 Globulin 1.9 g/dL (2.1-4.2) L 10/17/18 07:30 Albumin/Globulin Ratio 0.6 (1.0-2.2) L 10/17/18 07:30 Prealbumin 2 mg/dL (18-45) L 10/16/18 04:25 Triglycerides 42 mg/dL (-149) 10/16/18 04:25 Lipase 21 U/L (22-51) L 10/14/18 13:10 Urine Color YELLOW 10/14/18 20:00 Urine Clarity CLEAR (CLEAR) 10/14/18 20:00 Urine pH 6.0 PH (5.0-7.5) 10/14/18 20:00 Ur Specific [place] 1.015 (1.002-1.030) 10/14/18 20:00 Urine Protein NEGATIVE mg/dL (NEGATIVE) 10/14/18 20:00 Urine Glucose (UA) NEGATIVE mg/dL (NEGATIVE) 10/14/18 20:00 Urine Ketones 15 mg/dL (NEGATIVE) H 10/14/18 20:00 Urine Occult Blood TRACE-INTA (NEGATIVE) 10/14/18 20:00 Urine Nitrite POSITIVE (NEGATIVE) H 10/14/18 20:00 Urine Bilirubin NEGATIVE (NEGATIVE) 10/14/18 20:00 Urine Urobilinogen 0.2 (NORMAL) E.U./dL (NORMAL) 10/14/18 20:00 Ur Leukocyte Esterase NEGATIVE (NEGATIVE) 10/14/18 20:00 Urine RBC 0-5 /HPF (0-5) 10/14/18 20:00 Urine WBC 0-3 /HPF (0-5) 10/14/18 20:00 Ur Squamous Epith Cells NONE SEEN (<= Few) 10/14/18 20:00 Urine Bacteria Rare /HPF (None Seen) 10/14/18 20:00 Ur Microscopic Review INDICATED 10/14/18 20:00 Urine Culture Comments INDICATED 10/14/18 20:00 Acetaminophen 90 ug/mL (10-30) H* 10/16/18 07:12 Hepatitis A IgM Ab NON-REACTIVE (NON-REACTIVE) 10/16/18:59 Hep Bs Antigen NON-REACTIVE (NON-REACTIVE) 10/16/18:59 Hep B Core IgM Ab NON-REACTIVE (NON-REACTIVE) 10/16/18 12:59 Hepatitis C Antibody NON-REACTIVE (NON-REACTIVE) 10/16/18 Hep C Ab Signal/Cutoff 0.00 (<1.00) 10/16/18 12:59 MRSA Surveill Initial NEGATIVE (NEGATIVE) 10/14/18 20:00 - Procedures Procedures: Procedures EXCISION OF LEFT LOBE LIVER, OPEN APPROACH, DIAGNOSTIC (10/05/18) EXCISION OF MESENTERY, OPEN APPROACH (10/05/18) EXCISION OF TRANSVERSE COLON, OPEN APPROACH (10/05/18) RESECTION OF RIGHT LARGE INTESTINE, OPEN APPROACH (10/05/18)
[2018-10-17 18:35] LABS: CALCIUM 7.4 mg/dL (8.5-10.3); CREATININE 1.1 mg/dL (0.4-1.0)
[2018-10-17] MEDS: FAT EMULSION 20% 250 ML IV SCH (18:40)
[2018-10-17] MEDS: PPN (CLINIMIX E 4.25/5) 2,000 ML with MULTIVITAMIN 10 ML, TRACE ELEMENTS V CONC 1 ML IV SCH ×3 (18:47)
[2018-10-17] MEDS ORDERED: SODIUM CHLORIDE 0.9% 1,000 ML IV SCH (20:00)
[2018-10-18] MEDS: PIPERACILLIN/TAZOBACTAM 3.375 GM in SODIUM CHLORIDE 0.9% MINIBAG 100 ML IV SCH ×2 (00:48→08:15)
[2018-10-18] MEDS: HYDROmorphone 0.5 MG/0.5 ML SYRINGE IVP PRN ×4 (00:50→14:03)
[2018-10-18] MEDS: metroNIDAZOLE 500 MG/100 ML 500 MG/100 ML BAG IV SCH ×2 (01:58→10:05)
[2018-10-18] MEDS ORDERED: SODIUM CHLORIDE 0.9% 1,000 ML IV SCH (03:28)
[2018-10-18] MEDS: SODIUM CHLORIDE FLUSH 0.9% 10 ML SYRINGE IVP SCH ×4 (04:45→21:07)
[2018-10-18 05:12] LABS: BASOPHILS # (AUTO) 0.1 10^3/uL (0.0-0.1); BASOPHILS % (AUTO) 0.7 %; EOSINOPHILS # (AUTO) 0.1 10^3/uL (0.0-0.7); EOSINOPHILS % (AUTO) 1.6 %; HGB - HEMOGLOBIN 9.5 g/dL (12.0-16.0); LYMPHOCYTES # (AUTO) 0.8 10^3/uL (1.5-3.5); MEAN CORPUSCULAR HEMOGLOBIN 27.2 pg (27.0-31.0); MEAN CORPUSCULAR HGB CONC 32.3 g/dL (32.0-36.0); MEAN CORPUSCULAR VOLUME 84.1 fL (81.0-99.0); MEAN PLATELET VOLUME 8.9 fL (7.9-10.8); MONOCYTES # (AUTO) 0.2 10^3/uL (0.0-1.0); MONOCYTES % (AUTO) 2.2 %; NEUTROPHILS # (AUTO) 7.2 10^3/uL (1.5-6.6); NEUTROPHILS % (AUTO) 86.5 %; PLT - PLATELET COUNT 64 10^3/uL (130-450); RED BLOOD COUNT 3.51 10^6/uL (4.20-5.40); RED CELL DISTRIBUTION WIDTH 30.1 % (12.0-15.0); WHITE BLOOD COUNT 8.3 x10^3/uL (4.8-10.8)
[2018-10-18 05:14] LABS: PT - PROTHROMBIN TIME 65.3 secs (9.9-12.6)
[2018-10-18 05:21] LABS: INR 5.9 (0.8-1.2)
[2018-10-18 05:30] LABS: ALBUMIN 1.5 g/dL (3.2-5.5); ALBUMIN/GLOBULIN RATIO 0.8 (1.0-2.2); BILIRUBIN,TOTAL 4.8 mg/dL (0.2-1.0); CALCIUM 7.5 mg/dL (8.5-10.3); MAGNESIUM 2.2 mg/dL (1.7-2.8); PHOSPHORUS 5.3 mg/dL (2.5-4.6); TOTAL PROTEIN 3.4 g/dL (6.7-8.2)
[2018-10-18 05:51] LABS: PLATELET ESTIMATE, MANUAL DECREASED (<130,000) (NORMAL); RBC MORPHOLOGY (MULTIPLE) 3+ ANISOCYTOSIS (NORMAL)
[2018-10-18] MEDS: POLYETHYLENE GLYCOL 3350 17 GM PACKET PO SCH (08:23)
[2018-10-18] MEDS ORDERED: INSULIN REGULAR HUMAN 100 UNIT/1 ML 10 ML MDV IVP SCH (08:24)
[2018-10-18] MEDS ORDERED: DEXTROSE 50% ABBOJECT 25 GM/50 ML SYRINGE IVP ONE (08:24)
[2018-10-18] MEDS ORDERED: DEXTROSE 50% ABBOJECT 25 GM/50 ML SYRINGE IVP SCH (08:24)
[2018-10-18] MEDS: FAMOTIDINE 20 MG/50 ML 50 ML IV SCH (09:06)
[2018-10-18] MEDS: CIPROFLOXACIN 400 MG/200 ML 200 ML IV SCH (11:20)
[2018-10-18 13:01] VITALS: BP 93/69
[2018-10-18] MEDS ORDERED: ATROPINE 1% OPHTH DROPS 2 ML SL PRN (14:04)
[2018-10-18] MEDS ORDERED: GLYCOPYRROLATE 1 MG/5 ML VIAL SUBQ PRN (14:04)
[2018-10-18] MEDS ORDERED: MINERAL OIL/PETROLAT OPHTH OINT EACHEYE PRN (14:04)
[2018-10-18] MEDS ORDERED: CARBOXYMETHYLCELLULOSE OPHTH DROPS EACHEYE PRN (14:04)
[2018-10-18] MEDS ORDERED: SALIVA STIMULANT SPRAY 44.3 ML BOTTLE PO PRN (14:08)
--- NOTE | 2018-10-18 14:17 | PROVIDER PROGRESS NOTE ---
Assessment/Plan - Problem List (1) Septic shock Assessment/Plan: After discussion with the patient's sister and the patient's daughter, in the room, Comfort Care will be started today. Antibiotics, peripheral nutrition and iv maintenance fluids will be stopped. The ng tube will be remove, this was especially requested by them. A Hospice consult will be placed. (2) Liver failure, acute Qualifiers: Hepatic coma status: without hepatic coma Qualified Code(s): K72.00 - Acute and subacute hepatic failure without coma (3) Hyperkalemia Assessment/Plan: She was treated for repeat high K, with Insulin and D50 today. After Comfort Care started, no further labs will be drawn. (4) Need for comfort care Assessment/Plan: As above - Current Meds Current Meds: Current Medications Generic Name Dose Route Start Last Admin Trade Name Freq PRN Reason Stop Dose Admin Lorazepam 0.25 mg 10/17/18 10:35 10/17/18 18:25 Ativan Inj (Vial) IVP 0.25 mg Q2H PRN Administration Anxiety Mineral Oil 1 applic 10/15/18 11:41 10/17/18 12:07 Cavilon TOP 1 applic PRN PRN Administration Skin Care Ondansetron HCl 4 mg 10/14/18 15:47 10/17/18 03:25 Zofran Inj IVP 4 mg Q6HR PRN Administration Nausea / Vomiting Sodium Chloride 10 ml 10/15/18 01:00 10/18/18 09:14 Normal Saline Flush 0.9% IVP 10 ml [id number] FIFI Administration Sodium Chloride 10 ml 10/14/18 18:47 10/17/18 19:29 Normal Saline Flush 0.9% IVP 10 ml PRN PRN Administration NEEDED PER PROVIDER ORDERS Sodium Chloride 20 ml 10/16/18 12:37 10/17/18 18:18 Normal Saline Flush 0.9% IVP 30 ml PRN PRN Administration After Blood Draw - Lab Result Fish Bone Diagrams: 10/18/18 04:45 10/18/18 04:45 - Additional Planning My Orders: My Active Orders 10/18/18 Hospitalist Consult [CONS] Routine 10/18/18 14:03 Comfort Care [RC] QSHIFT 10/18/18 14:04 Central Line Care [RC] Q4H IV Line/Site Care [RC] Q4HR Oral Care - Nursing [RC] Q2HR Vital Signs [RC] PRN Atropine 1% Ophth Drops [Isopto Atropine 1% Ophth Drops] 1 - 4 drops SL Q2H PRN Carboxymethylcellulose 1% Opht [Refresh 1% Ophth Drops] 1 drops EACHEYE QID PRN Glycopyrrolate [Robinul] 0.2 mg SUBQ Q4H PRN Mineral Oil/Petrola Ophth Oint [Lubrifresh Pm Ophth Oint] 1 applic EACHEYE QPM PRN Morphine Inj (Carpuject) [Morphine (Carpuject)] 2 mg IVP Q2HR PRN 10/18/18 14:05 Cooling Unit [RC] prn Turn and Reposition [RC] prn Warming Unit [RC] prn 10/18/18 14:08 Saliva Stimulant Fine [Biotene Moisturizing Mouth Fine] 2 sprays PO Q4H PRN 10/18/18 15:00 Scopolamine Patch [Transderm-Scop] 1 patch TOP Q3D Objective Vital Signs: Vital Signs - 24 hr 10/17/18 10/17/18 10/17/18 14:30 14:37 15:00 Temperature 36.6 C Heart Rate 109 H Heart Rate [ 107 H 106 H Brachial] Heart Rate [ Monitoring electrodes] Respiratory 10 L 10 L 10 L Rate Blood Pressure 108/62 Blood Pressure 108/62 108/61 [Left Brachial artery] O2 Saturation 97 98 10/17/18 10/17/18 10/17/18 15:02 15:30 16:00 Temperature 36.3 C L 36.3 C L Heart Rate 105 H Heart Rate [ 113 H 115 H Brachial] Heart Rate [ Monitoring electrodes] Respiratory 10 L 14 13 Rate Blood Pressure 108/61 Blood Pressure 122/66 126/67 [Left Brachial artery] O2 Saturation 96 97 10/17/18 10/17/18 10/17/18 16:04 16:30 16:59 Temperature 36.3 C L 36.3 C L Heart Rate 113 H 108 H Heart Rate [ 111 H Brachial] Heart Rate [ Monitoring electrodes] Respiratory 12 10 L 10 L Rate Blood Pressure 126/67 109/69 Blood Pressure 129/107 H [Left Brachial artery] O2 Saturation 97 10/17/18 10/17/18 10/17/18 17:00 17:15 17:30 Temperature 36.2 C L Heart Rate 109 H Heart Rate [ 108 H 110 H Brachial] Heart Rate [ Monitoring electrodes] Respiratory 10 L 12 13 Rate Blood Pressure 123/65 Blood Pressure 109/69 123/65 [Left Brachial artery] O2 Saturation 98 99 10/17/18 10/17/18 10/17/18 17:55 18:00 18:30 Temperature 36.2 C L Heart Rate 108 H Heart Rate [ 118 H 112 H Brachial] Heart Rate [ Monitoring electrodes] Respiratory 10 L 22 15 Rate Blood Pressure 130/67 Blood Pressure 125/69 140/65 H [Left Brachial artery] O2 Saturation 97 100 10/17/18 10/17/18 10/17/18 19:00 19:30 19:38 Temperature 2.4 C L Heart Rate Heart Rate [ 112 H 110 H Brachial] Heart Rate [ Monitoring electrodes] Respiratory 19 18 Rate Blood Pressure Blood Pressure 125/69 127/61 [Left Brachial artery] O2 Saturation 99 99 10/17/18 10/17/18 10/17/18 20:00 20:30 21:00 Temperature Heart Rate Heart Rate [ Brachial] Heart Rate [ 111 H 109 H 109 H Monitoring electrodes] Respiratory 18 16 15 Rate Blood Pressure Blood Pressure 119/63 113/62 124/69 [Left Brachial artery] O2 Saturation 98 99 99 10/17/18 10/17/18 10/17/18 21:30 22:00 22:30 Temperature Heart Rate Heart Rate [ Brachial] Heart Rate [ 108 H 108 H 108 H Monitoring electrodes] Respiratory 17 17 17 Rate Blood Pressure Blood Pressure 112/66 122/67 117/68 [Left Brachial artery] O2 Saturation 99 99 99 10/17/18 10/17/18 10/18/18 23:00 23:30 00:00 Temperature 36.5 C Heart Rate Heart Rate [ Brachial] Heart Rate [ 109 H 108 H 107 H Monitoring electrodes] Respiratory 9 L 9 L 9 L Rate Blood Pressure Blood Pressure 105/68 127/69 107/65 [Left Brachial artery] O2 Saturation 99 99 99 10/18/18 10/18/18 10/18/18 00:30 01:00 01:30 Temperature Heart Rate Heart Rate [ Brachial] Heart Rate [ 106 H 107 H 110 H Monitoring electrodes] Respiratory 9 L 15 16 Rate Blood Pressure Blood Pressure 122/66 107/57 L 114/60 [Left Brachial artery] O2 Saturation 106 H 97 98 10/18/18 10/18/18 10/18/18 02:00 02:30 03:00 Temperature Heart Rate Heart Rate [ Brachial] Heart Rate [ 107 H 108 H 109 H Monitoring electrodes] Respiratory 13 13 14 Rate Blood Pressure Blood Pressure 118/60 114/59 L 114/61 [Left Brachial artery] O2 Saturation 98 98 98 10/18/18 10/18/18 10/18/18 03:30 04:00 04:30 Temperature Heart Rate Heart Rate [ Brachial] Heart Rate [ 108 H 108 H 108 H Monitoring electrodes] Respiratory 13 14 13 Rate Blood Pressure Blood Pressure 108/60 105/63 107/59 L [Left Brachial artery] O2 Saturation 97 98 97 10/18/18 10/18/18 10/18/18 04:49 05:00 05:30 Temperature 36.5 C Heart Rate Heart Rate [ Brachial] Heart Rate [ 109 H 109 H Monitoring electrodes] Respiratory 15 7 L Rate Blood Pressure Blood Pressure 111/62 107/56 L [Left Brachial artery] O2 Saturation 97 98 10/18/18 10/18/18 10/18/18 06:00 06:30 07:00 Temperature Heart Rate Heart Rate [ Brachial] Heart Rate [ 110 H 110 H 109 H Monitoring electrodes] Respiratory 10 L 15 16 Rate Blood Pressure Blood Pressure 110/60 111/61 111/57 L [Left Brachial artery] O2 Saturation 97 98 98 10/18/18 10/18/18 10/18/18 08:00 10:00 13:00 Temperature 36.6 C 36.5 C Heart Rate Heart Rate [ Brachial] Heart Rate [ 110 H 121 H 115 H Monitoring electrodes] Respiratory 8 L 9 L 10 L Rate Blood Pressure Blood Pressure 109/57 L 103/64 93/69 [Left Brachial artery] O2 Saturation 97 95 94 Oxygen O2 Source Room air I&O (Last 24 Hrs): Intake and Output Totals x24h 10/16/18 10/17/18 10/18/18 23:59 23:59 23:59 Intake Total 6473.520 6082.650 2621.017 Output Total 1425 680 275 Balance 5048.520 5402.650 2346.017 General: Other (Sedated) HEENT: Other (ng tube in place) Neck: Supple Respiratory: No respiratory distress - Results Results: Laboratory Results WBC 8.3 x10^3/uL (4.8-10.8) 10/18/18 04:45 RBC 3.51 10^6/uL (4.20-5.40) L 10/18/18 04:45 Hgb 9.5 g/dL (12.0-16.0) L 10/18/18 04:45 Hct 29.6 % (37.0-47.0) L 10/18/18 04:45 MCV 84.1 fL (81.0-99.0) 10/18/18 04:45 MCH 27.2 pg (27.0-31.0) 10/18/18 04:45 MCHC 32.3 g/dL (32.0-36.0) 10/18/18 04:45 RDW 30.1 % (12.0-15.0) H 10/18/18 04:45 Plt Count 64 10^3/uL (130-450) L 10/18/18 04:45 MPV 8.9 fL (7.9-10.8) 10/18/18 04:45 Neut # (Auto) 7.2 10^3/uL (1.5-6.6) H 10/18/18 04:45 Lymph # (Auto) 0.8 10^3/uL (1.5-3.5) L 10/18/18 04:45 [place] # (Auto) 0.2 10^3/uL (0.0-1.0) 10/18/18 04:45 Eos # (Auto) 0.1 10^3/uL (0.0-0.7) 10/18/18 04:45 Baso # (Auto) 0.1 10^3/uL (0.0-0.1) 10/18/18 04:45 Absolute Nucleated RBC 0.01 x10^3/uL 10/18/18 04:45 Total Counted 100 10/17/18 07:30 Band Neuts % (Manual) 9 % (0-10) 10/17/18 07:30 Reactive Lymphs % (Man) 2 % 10/16/18 16:59 Abnorm Lymph % (Manual) 0 % 10/17/18 07:30 Nucleated RBC % 0.1 /100WBC 10/18/18 04:45 Neutrophils # (Manual) 13.3 10^3/uL (1.5-6.6) H 10/17/18 07:30 Lymphocytes # (Manual) 0.6 10^3/uL (1.5-3.5) L 10/17/18 07:30 Monocytes # (Manual) 0.1 10^3/uL (0.0-1.0) 10/17/18 07:30 Eosinophils # (Manual) 0.0 10^3/uL (0-0.7) 10/17/18 07:30 Basophils # (Manual) 0.0 10^3/uL (0-0.1) 10/17/18 07:30 Differential Comment MANUAL DIFFERENTIAL 10/17/18 07:30 Manual Slide Review Indicated 10/18/18 04:45 WBC Morphology 1+ TOXIC GRANULATION (NORMAL) TOXIC VACUOLATION (NORMAL) 10/17/18 07:30 WBC Morphology 1+ TOXIC GRANULATION (NORMAL) TOXIC VACUOLATION (NORMAL) 10/17/18 07:30 Platelet Estimate DECREASED (<130,000) (NORMAL) 10/18/18 04:45 Platelet Morphology RARE GIANT PLATELETS (NORMAL) 10/17/18 07:30 RBC Morph Micro Appear 2+ ANISOCYTOSIS (NORMAL) 1+ MICROCYTOSIS (NORMAL) 1+ HYPOCHROMASIA (NORMAL) 10/15/18 05:00 RBC Morph Micro Appear 2+ ANISOCYTOSIS (NORMAL) 1+ MICROCYTOSIS (NORMAL) 1+ HYPOCHROMASIA (NORMAL) 10/15/18 05:00 RBC Morph Micro Appear 2+ ANISOCYTOSIS (NORMAL) 1+ MICROCYTOSIS (NORMAL) 1+ HYPOCHROMASIA (NORMAL) 10/15/18 05:00 RBC Morph Micro Appear 2+ ANISOCYTOSIS (NORMAL) 1+ HYPOCHROMASIA (NORMAL) 1+ MICROCYTOSIS (NORMAL) 10/16/18 04:25 RBC Morph Micro Appear 2+ ANISOCYTOSIS (NORMAL) 1+ HYPOCHROMASIA (NORMAL) 1+ MICROCYTOSIS (NORMAL) 10/16/18 04:25 RBC Morph Micro Appear 2+ ANISOCYTOSIS (NORMAL) 1+ HYPOCHROMASIA (NORMAL) 1+ MICROCYTOSIS (NORMAL) 10/16/18 04:25 RBC Morph Micro Appear 3+ ANISOCYTOSIS (NORMAL) 2+ MICROCYTOSIS (NORMAL) 2+ HYPOCHROMASIA (NORMAL) 2+ POIKILOCYTOSIS (NORMAL) 1+ POLYCHROMASIA (NORMAL) 1+ TEARDROP CELLS (NORMAL) 1+ SCHISTOCYTES (NORMAL) 1+ OVALOCYTES (NORMAL) 1+ GUILHERME CELLS (NORMAL) 10/16/18 16:59 RBC Morph Micro Appear 3+ ANISOCYTOSIS (NORMAL) 2+ MICROCYTOSIS (NORMAL) 2+ HYPOCHROMASIA (NORMAL) 2+ POIKILOCYTOSIS (NORMAL) 1+ POLYCHROMASIA (NORMAL) 1+ TEARDROP CELLS (NORMAL) 1+ SCHISTOCYTES (NORMAL) 1+ OVALOCYTES (NORMAL) 1+ GUILHERME CELLS (NORMAL) 10/16/18 16:59 RBC Morph Micro Appear 3+ ANISOCYTOSIS (NORMAL) 2+ MICROCYTOSIS (NORMAL) 2+ HYPOCHROMASIA (NORMAL) 2+ POIKILOCYTOSIS (NORMAL) 1+ POLYCHROMASIA (NORMAL) 1+ TEARDROP CELLS (NORMAL) 1+ SCHISTOCYTES (NORMAL) 1+ OVALOCYTES (NORMAL) 1+ GUILHERME CELLS (NORMAL) 10/16/18 16:59 RBC Morph Micro Appear 3+ ANISOCYTOSIS (NORMAL) 2+ MICROCYTOSIS (NORMAL) 2+ HYPOCHROMASIA (NORMAL) 2+ POIKILOCYTOSIS (NORMAL) 1+ POLYCHROMASIA (NORMAL) 1+ TEARDROP CELLS (NORMAL) 1+ SCHISTOCYTES (NORMAL) 1+ OVALOCYTES (NORMAL) 1+ GUILHERME CELLS (NORMAL) 10/16/18 16:59 RBC Morph Micro Appear 3+ ANISOCYTOSIS (NORMAL) 2+ MICROCYTOSIS (NORMAL) 2+ HYPOCHROMASIA (NORMAL) 2+ POIKILOCYTOSIS (NORMAL) 1+ POLYCHROMASIA (NORMAL) 1+ TEARDROP CELLS (NORMAL) 1+ SCHISTOCYTES (NORMAL) 1+ OVALOCYTES (NORMAL) 1+ GUILHERME CELLS (NORMAL) 10/16/18 16:59 RBC Morph Micro Appear 3+ ANISOCYTOSIS (NORMAL) 2+ MICROCYTOSIS (NORMAL) 2+ HYPOCHROMASIA (NORMAL) 2+ POIKILOCYTOSIS (NORMAL) 1+ POLYCHROMASIA (NORMAL) 1+ TEARDROP CELLS (NORMAL) 1+ SCHISTOCYTES (NORMAL) 1+ OVALOCYTES (NORMAL) 1+ GUILHERME CELLS (NORMAL) 10/16/18 16:59 RBC Morph Micro Appear 3+ ANISOCYTOSIS (NORMAL) 2+ MICROCYTOSIS (NORMAL) 2+ HYPOCHROMASIA (NORMAL) 2+ POIKILOCYTOSIS (NORMAL) 1+ POLYCHROMASIA (NORMAL) 1+ TEARDROP CELLS (NORMAL) 1+ SCHISTOCYTES (NORMAL) 1+ OVALOCYTES (NORMAL) 1+ GUILHERME CELLS (NORMAL) 10/16/18 16:59 RBC Morph Micro Appear 3+ ANISOCYTOSIS (NORMAL) 2+ MICROCYTOSIS (NORMAL) 2+ HYPOCHROMASIA (NORMAL) 2+ POIKILOCYTOSIS (NORMAL) 1+ POLYCHROMASIA (NORMAL) 1+ TEARDROP CELLS (NORMAL) 1+ SCHISTOCYTES (NORMAL) 1+ OVALOCYTES (NORMAL) 1+ GUILHERME CELLS (NORMAL) 10/16/18 16:59 RBC Morph Micro Appear 3+ ANISOCYTOSIS (NORMAL) 2+ MICROCYTOSIS (NORMAL) 2+ HYPOCHROMASIA (NORMAL) 2+ POIKILOCYTOSIS (NORMAL) 1+ POLYCHROMASIA (NORMAL) 1+ TEARDROP CELLS (NORMAL) 1+ SCHISTOCYTES (NORMAL) 1+ OVALOCYTES (NORMAL) 1+ GUILHERME CELLS (NORMAL) 10/16/18 16:59 RBC Morph Micro Appear 3+ ANISOCYTOSIS (NORMAL) 1+ HYPOCHROMASIA (NORMAL) 10/17/18 07:30 RBC Morph Micro Appear 3+ ANISOCYTOSIS (NORMAL) 1+ HYPOCHROMASIA (NORMAL) 10/17/18 07:30 RBC Morph Micro Appear 3+ ANISOCYTOSIS (NORMAL) 10/18/18 04:45 PT 65.3 secs (9.9-12.6) H 10/18/18 04:45 INR 5.9 (0.8-1.2) H* 10/18/18 04:45 Sodium 131 mmol/L (135-145) L 10/18/18 04:45 Potassium 6.7 mmol/L (3.5-5.0) H* 10/18/18 04:45 Chloride 108 mmol/L (101-111) 10/18/18 04:45 Carbon Dioxide 16 mmol/L (21-32) L 10/18/18 04:45 Anion Gap 7.0 (6-13) 10/18/18 04:45 BUN 16 mg/dL (6-20) 10/18/18 04:45 Creatinine 1.0 mg/dL (0.4-1.0) 10/18/18 04:45 Estimated GFR (MDRD) 56 (>89) L 10/18/18 04:45 Glucose 317 mg/dL (70-100) H 10/18/18 04:45 POC Whole Bld Glucose 339 mg/dL (70 - 100) H 10/18/18 00:33 Lactic Acid 3.0 mmol/L (0.5-2.2) H* 10/16/18 14:15 Calcium 7.5 mg/dL (8.5-10.3) L 10/18/18 04:45 Phosphorus 5.3 mg/dL (2.5-4.6) H 10/18/18 04:45 Magnesium 2.2 mg/dL (1.7-2.8) 10/18/18 04:45 Total Bilirubin 4.8 mg/dL (0.2-1.0) H 10/18/18 04:45 AST 1622 IU/L (10-42) H 10/18/18 04:45 ALT 1895 IU/L (10-60) H 10/18/18 04:45 Alkaline Phosphatase 271 IU/L (42-121) H 10/18/18 04:45 Troponin I 0.05 ng/mL (<0.49) 10/16/18 16:59 Total Protein 3.4 g/dL (6.7-8.2) L 10/18/18 04:45 Albumin 1.5 g/dL (3.2-5.5) L 10/18/18 04:45 Globulin 1.9 g/dL (2.1-4.2) L 10/18/18 04:45 Albumin/Globulin Ratio 0.8 (1.0-2.2) L 10/18/18 04:45 Prealbumin 9 mg/dL (18-45) L 10/18/18 04:45 Triglycerides 316 mg/dL (-149) H 10/18/18 04:45 Lipase 21 U/L (22-51) L 10/14/18 13:10 Urine Color YELLOW 10/14/18 20:00 Urine Clarity CLEAR (CLEAR) 10/14/18 20:00 Urine pH 6.0 PH (5.0-7.5) 10/14/18 20:00 Ur Specific [place] 1.015 (1.002-1.030) 10/14/18 20:00 Urine Protein NEGATIVE mg/dL (NEGATIVE) 10/14/18 20:00 Urine Glucose (UA) NEGATIVE mg/dL (NEGATIVE) 10/14/18 20:00 Urine Ketones 15 mg/dL (NEGATIVE) H 10/14/18 20:00 Urine Occult Blood TRACE-INTA (NEGATIVE) 10/14/18 20:00 Urine Nitrite POSITIVE (NEGATIVE) H 10/14/18 20:00 Urine Bilirubin NEGATIVE (NEGATIVE) 10/14/18 20:00 Urine Urobilinogen 0.2 (NORMAL) E.U./dL (NORMAL) 10/14/18 20:00 Ur Leukocyte Esterase NEGATIVE (NEGATIVE) 10/14/18 20:00 Urine RBC 0-5 /HPF (0-5) 10/14/18 20:00 Urine WBC 0-3 /HPF (0-5) 10/14/18 20:00 Ur Squamous Epith Cells NONE SEEN (<= Few) 10/14/18 20:00 Urine Bacteria Rare /HPF (None Seen) 10/14/18 20:00 Ur Microscopic Review INDICATED 10/14/18 20:00 Urine Culture Comments INDICATED 10/14/18 20:00 Acetaminophen 90 ug/mL (10-30) H* 10/16/18 07:12 Hepatitis A IgM Ab NON-REACTIVE (NON-REACTIVE) 10/16/18 12:59 Hep Bs Antigen NON-REACTIVE (NON-REACTIVE) 10/16/18 12:59 Hep B Core IgM Ab NON-REACTIVE (NON-REACTIVE) 10/16/18 12:59 Hepatitis C Antibody NON-REACTIVE (NON-REACTIVE) 10/16/18 12:59 Hep C Ab Signal/Cutoff 0.00 (<1.00) 10/16/18 12:59 MRSA Surveill Initial NEGATIVE (NEGATIVE) 10/14/18 20:00 Blood Type O NEGATIVE 10/17/18 12:58 Antibody Screen NEGATIVE 10/17/18 12:58 - Procedures Procedures: Procedures EXCISION OF LEFT LOBE LIVER, OPEN APPROACH, DIAGNOSTIC (10/05/18) EXCISION OF MESENTERY, OPEN APPROACH (10/05/18) EXCISION OF TRANSVERSE COLON, OPEN APPROACH (10/05/18) RESECTION OF RIGHT LARGE INTESTINE, OPEN APPROACH (10/05/18)
[2018-10-18] MEDS ORDERED: SCOPOLAMINE PATCH TOP SCH (15:00)
[2018-10-18] MEDS: MORPHINE 2 MG/ML CARPUJECT IVP PRN ×4 (16:00→23:08)
[2018-10-18] MEDS: SODIUM CHLORIDE FLUSH 0.9% 10 ML SYRINGE IVP PRN ×2 (16:13→23:08)
[2018-10-19] MEDS: SODIUM CHLORIDE FLUSH 0.9% 10 ML SYRINGE IVP PRN ×3 (00:56→05:47)
[2018-10-19] MEDS: MORPHINE 2 MG/ML CARPUJECT IVP PRN ×9 (00:56→18:04)
[2018-10-19] MEDS: SODIUM CHLORIDE FLUSH 0.9% 10 ML SYRINGE IVP SCH ×2 (10:11→16:52)
--- NOTE | 2018-10-19 12:42 | PROVIDER PROGRESS NOTE ---
Assessment/Plan - Problem List (1) Need for comfort care Assessment/Plan: Patient on [facility] has been requested to accept her under their care. Academic Vice President Rosalina Ramirez will reach out to Hospice. - Current Meds Current Meds: Current Medications Generic Name Dose Route Start Last Admin Trade Name Freq PRN Reason Stop Dose Admin Lorazepam 0.25 mg 10/17/18 10:35 10/17/18 18:25 Ativan Inj (Vial) IVP 0.25 mg Q2H PRN Administration Anxiety Mineral Oil 1 applic 10/15/18 11:41 10/17/18 12:07 Cavilon TOP 1 applic PRN PRN Administration Skin Care Morphine Sulfate 2 mg 10/18/18 14:04 10/19/18 12:17 Morphine (Carpuject) IVP 2 mg Q2HR PRN Administration Pain or Shortness of air Ondansetron HCl 4 mg 10/14/18 15:47 10/17/18 03:25 Zofran Inj IVP 4 mg Q6HR PRN Administration Nausea / Vomiting Scopolamine HBr 1 patch 10/18/18 15:00 10/18/18 15:10 Transderm-Scop TOP 1 patch Q3D FIFI Administration Sodium Chloride 10 ml 10/15/18 01:00 10/19/18 10:11 Normal Saline Flush 0.9% IVP 10 ml 0100,0900,1700 FIFI Administration Sodium Chloride 10 ml 10/14/18 18:47 10/19/18 05:47 Normal Saline Flush 0.9% IVP 10 ml PRN PRN Administration NEEDED PER PROVIDER ORDERS Sodium Chloride 20 ml 10/16/18 12:37 10/17/18 18:18 Normal Saline Flush 0.9% IVP 30 ml PRN PRN Administration After Blood Draw - Lab Result Fish Bone Diagrams: 10/18/18 04:45 10/18/18 04:45 - Additional Planning My Orders: My Active Orders 10/18/18 14:03 Comfort Care [RC] QSHIFT 10/18/18 14:04 Central Line Care [RC] Q4H Vital Signs [RC] PRN Atropine 1% Ophth Drops [Isopto Atropine 1% Ophth Drops] 1 - 4 drops SL Q2H PRN Carboxymethylcellulose 1% Opht [Refresh 1% Ophth Drops] 1 drops EACHEYE QID PRN Glycopyrrolate [Robinul] 0.2 mg SUBQ Q4H PRN Mineral Oil/Petrola Ophth Oint [Lubrifresh Pm Ophth Oint] 1 applic EACHEYE QPM PRN Morphine Inj (Carpuject) [Morphine (Carpuject)] 2 mg IVP Q2HR PRN 10/18/18 14:05 Cooling Unit [RC] prn Turn and Reposition [RC] prn Warming Unit [RC] prn 10/18/18 14:08 Saliva Stimulant Tyler [Biotene Moisturizing Mouth Tyler] 2 sprays PO Q4H PRN 10/18/18 15:00 Scopolamine Patch [Transderm-Scop] 1 patch TOP Q3D Objective Vital Signs: Vital Signs - 24 hr 10/18/18 13:00 Temperature 36.5 C Heart Rate [ 115 H Monitoring electrodes] Respiratory 10 L Rate Blood Pressure 93/69 [Left Brachial artery] O2 Saturation 94 Oxygen O2 Source Room air I&O (Last 24 Hrs): Intake and Output Totals x24h 10/17/18 10/18/18 10/19/18 23:59 23:59 23:59 Intake Total 6082.650 2621.017 Output Total 680 450 0 Balance 5402.650 2171.017 0 General: Other (sedated, pale) HEENT: Other (Icteric) Cardiovascular: Other (Tachycardic) Respiratory: Other (Slow but deep and labored respirations) - Results Results: Laboratory Results WBC 8.3 x10^3/uL (4.8-10.8) 10/18/18 04:45 RBC 3.51 10^6/uL (4.20-5.40) L 10/18/18 04:45 Hgb 9.5 g/dL (12.0-16.0) L 10/18/18 04:45 Hct 29.6 % (37.0-47.0) L 10/18/18 04:45 MCV 84.1 fL (81.0-99.0) 10/18/18 04:45 MCH 27.2 pg (27.0-31.0) 10/18/18 04:45 MCHC 32.3 g/dL (32.0-36.0) 10/18/18 04:45 RDW 30.1 % (12.0-15.0) H 10/18/18 04:45 Plt Count 64 10^3/uL (130-450) L 10/18/18 04:45 MPV 8.9 fL (7.9-10.8) 10/18/18 04:45 Neut # (Auto) 7.2 10^3/uL (1.5-6.6) H 10/18/18 04:45 Lymph # (Auto) 0.8 10^3/uL (1.5-3.5) L 10/18/18 04:45 [place] # (Auto) 0.2 10^3/uL (0.0-1.0) 10/18/18 04:45 Eos # (Auto) 0.1 10^3/uL (0.0-0.7) 10/18/18 04:45 Baso # (Auto) 0.1 10^3/uL (0.0-0.1) 10/18/18 04:45 Absolute Nucleated RBC 0.01 x10^3/uL 10/18/18 04:45 Total Counted 100 10/17/18 07:30 Band Neuts % (Manual) 9 % (0-10) 10/17/18 07:30 Reactive Lymphs % (Man) 2 % 10/16/18 16:59 Abnorm Lymph % (Manual) 0 % 10/17/18 07:30 Nucleated RBC % 0.1 /100WBC 10/18/18 04:45 Neutrophils # (Manual) 13.3 10^3/uL (1.5-6.6) H 10/17/18 07:30 Lymphocytes # (Manual) 0.6 10^3/uL (1.5-3.5) L 10/17/18 07:30 Monocytes # (Manual) 0.1 10^3/uL (0.0-1.0) 10/17/18 07:30 Eosinophils # (Manual) 0.0 10^3/uL (0-0.7) 10/17/18 07:30 Basophils # (Manual) 0.0 10^3/uL (0-0.1) 10/17/18 07:30 Differential Comment MANUAL DIFFERENTIAL 10/17/18 07:30 Manual Slide Review Indicated 10/18/18 04:45 WBC Morphology 1+ TOXIC GRANULATION (NORMAL) TOXIC VACUOLATION (NORMAL) 10/17/18 07:30 WBC Morphology 1+ TOXIC GRANULATION (NORMAL) TOXIC VACUOLATION (NORMAL) 10/17/18 07:30 Platelet Estimate DECREASED (<130,000) (NORMAL) 10/18/18 04:45 Platelet Morphology RARE GIANT PLATELETS (NORMAL) 10/17/18 07:30 RBC Morph Micro Appear 2+ ANISOCYTOSIS (NORMAL) 1+ MICROCYTOSIS (NORMAL) 1+ HYPOCHROMASIA (NORMAL) 10/15/18 05:00 RBC Morph Micro Appear 2+ ANISOCYTOSIS (NORMAL) 1+ MICROCYTOSIS (NORMAL) 1+ HYPOCHROMASIA (NORMAL) 10/15/18 05:00 RBC Morph Micro Appear 2+ ANISOCYTOSIS (NORMAL) 1+ MICROCYTOSIS (NORMAL) 1+ HYPOCHROMASIA (NORMAL) 10/15/18 05:00 RBC Morph Micro Appear 2+ ANISOCYTOSIS (NORMAL) 1+ HYPOCHROMASIA (NORMAL) 1+ MICROCYTOSIS (NORMAL) 10/16/18 04:25 RBC Morph Micro Appear 2+ ANISOCYTOSIS (NORMAL) 1+ HYPOCHROMASIA (NORMAL) 1+ MICROCYTOSIS (NORMAL) 10/16/18 04:25 RBC Morph Micro Appear 2+ ANISOCYTOSIS (NORMAL) 1+ HYPOCHROMASIA (NORMAL) 1+ MICROCYTOSIS (NORMAL) 10/16/18 04:25 RBC Morph Micro Appear 3+ ANISOCYTOSIS (NORMAL) 2+ MICROCYTOSIS (NORMAL) 2+ HYPOCHROMASIA (NORMAL) 2+ POIKILOCYTOSIS (NORMAL) 1+ POLYCHROMASIA (NORMAL) 1+ TEARDROP CELLS (NORMAL) 1+ SCHISTOCYTES (NORMAL) 1+ OVALOCYTES (NORMAL) 1+ GUILHERME CELLS (NORMAL) 10/16/18 16:59 RBC Morph Micro Appear 3+ ANISOCYTOSIS (NORMAL) 2+ MICROCYTOSIS (NORMAL) 2+ HYPOCHROMASIA (NORMAL) 2+ POIKILOCYTOSIS (NORMAL) 1+ POLYCHROMASIA (NORMAL) 1+ TEARDROP CELLS (NORMAL) 1+ SCHISTOCYTES (NORMAL) 1+ OVALOCYTES (NORMAL) 1+ GUILHERME CELLS (NORMAL) 10/16/18 16:59 RBC Morph Micro Appear 3+ ANISOCYTOSIS (NORMAL) 2+ MICROCYTOSIS (NORMAL) 2+ HYPOCHROMASIA (NORMAL) 2+ POIKILOCYTOSIS (NORMAL) 1+ POLYCHROMASIA (NORMAL) 1+ TEARDROP CELLS (NORMAL) 1+ SCHISTOCYTES (NORMAL) 1+ OVALOCYTES (NORMAL) 1+ GUILHERME CELLS (NORMAL) 10/16/18 16:59 RBC Morph Micro Appear 3+ ANISOCYTOSIS (NORMAL) 2+ MICROCYTOSIS (NORMAL) 2+ HYPOCHROMASIA (NORMAL) 2+ POIKILOCYTOSIS (NORMAL) 1+ POLYCHROMASIA (NORMAL) 1+ TEARDROP CELLS (NORMAL) 1+ SCHISTOCYTES (NORMAL) 1+ OVALOCYTES (NORMAL) 1+ GUILHERME CELLS (NORMAL) 10/16/18 16:59 RBC Morph Micro Appear 3+ ANISOCYTOSIS (NORMAL) 2+ MICROCYTOSIS (NORMAL) 2+ HYPOCHROMASIA (NORMAL) 2+ POIKILOCYTOSIS (NORMAL) 1+ POLYCHROMASIA (NORMAL) 1 + TEARDROP CELLS (NORMAL) 1+ SCHISTOCYTES (NORMAL) 1+ OVALOCYTES (NORMAL) 1+ GUILHERME CELLS (NORMAL) 10/16/18 16:59 RBC Morph Micro Appear 3+ ANISOCYTOSIS (NORMAL) 2+ MICROCYTOSIS (NORMAL) 2+ HYPOCHROMASIA (NORMAL) 2+ POIKILOCYTOSIS (NORMAL) 1+ POLYCHROMASIA (NORMAL) 1+ TEARDROP CELLS (NORMAL) 1+ SCHISTOCYTES (NORMAL) 1+ OVALOCYTES (NORMAL) 1+ GUILHERME CELLS (NORMAL) 10/16/18 16:59 RBC Morph Micro Appear 3+ ANISOCYTOSIS (NORMAL) 2+ MICROCYTOSIS (NORMAL) 2+ HYPOCHROMASIA (NORMAL) 2+ POIKILOCYTOSIS (NORMAL) 1+ POLYCHROMASIA (NORMAL) 1+ TEARDROP CELLS (NORMAL) 1+ SCHISTOCYTES (NORMAL) 1+ OVALOCYTES (NORMAL) 1+ GUILHERME CELLS (NORMAL) 10/16/18 16:59 RBC Morph Micro Appear 3+ ANISOCYTOSIS (NORMAL) 2+ MICROCYTOSIS (NORMAL) 2+ HYPOCHROMASIA (NORMAL) 2+ POIKILOCYTOSIS (NORMAL) 1+ POLYCHROMASIA (NORMAL) 1+ TEARDROP CELLS (NORMAL) 1+ SCHISTOCYTES (NORMAL) 1+ OVALOCYTES (NORMAL) 1+ GUILHERME CELLS (NORMAL) 10/16/18 16:59 RBC Morph Micro Appear 3+ ANISOCYTOSIS (NORMAL) 2+ MICROCYTOSIS (NORMAL) 2+ HYPOCHROMASIA (NORMAL) 2+ POIKILOCYTOSIS (NORMAL) 1+ POLYCHROMASIA (NORMAL) 1+ TEARDROP CELLS (NORMAL) 1+ SCHISTOCYTES (NORMAL) 1+ OVALOCYTES (NORMAL) 1+ GUILHERME CELLS (NORMAL) 10/16/18 16:59 RBC Morph Micro Appear 3+ ANISOCYTOSIS (NORMAL) 1+ HYPOCHROMASIA (NORMAL) 10/17/18 07:30 RBC Morph Micro Appear 3+ ANISOCYTOSIS (NORMAL) 1+ HYPOCHROMASIA (NORMAL) 10/17/18 07:30 RBC Morph Micro Appear 3+ ANISOCYTOSIS (NORMAL) 10/18/18 04:45 PT 65.3 secs (9.9-12.6) H 10/18/18 04:45 INR 5.9 (0.8-1.2) H* 10/18/18 04:45 Sodium 131 mmol/L (135-145) L 10/18/18 04:45 Potassium 6.7 mmol/L (3.5-5.0) H* 10/18/18 04:45 Chloride 108 mmol/L (101-111) 10/18/18 04:45 Carbon Dioxide 16 mmol/L (21-32) L 10/18/18 04:45 Anion Gap 7.0 (6-13) 10/18/18 04:45 BUN 16 mg/dL (6-20) 10/18/18 04:45 Creatinine 1.0 mg/dL (0.4-1.0) 10/18/18 04:45 Estimated GFR (MDRD) 56 (>89) L 10/18/18 04:45 Glucose 317 mg/dL (70-100) H 10/18/18 04:45 POC Whole Bld Glucose 339 mg/dL (70 - 100) H 10/18/18 00:33 Lactic Acid 3.0 mmol/L (0.5-2.2) H* 10/16/18 14:15 Calcium 7.5 mg/dL (8.5-10.3) L 10/18/18 04:45 Phosphorus 5.3 mg/dL (2.5-4.6) H 10/18/18 04:45 Magnesium 2.2 mg/dL (1.7-2.8) 10/18/18 04:45 Total Bilirubin 4.8 mg/dL (0.2-1.0) H 10/18/18 04:45 AST 1622 IU/L (10-42) H 10/18/18 04:45 ALT 1895 IU/L (10-60) H 10/18/18 04:45 Alkaline Phosphatase 271 IU/L (42-121) H 10/18/18 04:45 Troponin I 0.05 ng/mL (<0.49) 10/16/18 16:59 Total Protein 3.4 g/dL (6.7-8.2) L 10/18/18 04:45 Albumin 1.5 g/dL (3.2-5.5) L 10/18/18 04:45 Globulin 1.9 g/dL (2.1-4.2) L 10/18/18 04:45 Albumin/Globulin Ratio 0.8 (1.0-2.2) L 10/18/18 04:45 Prealbumin 9 mg/dL (18-45) L 10/18/18 04:45 Triglycerides 316 mg/dL (-149) H 10/18/18 04:45 Lipase 21 U/L (22-51) L 10/14/18 13:10 Urine Color YELLOW 10/14/18 20:00 Urine Clarity CLEAR (CLEAR) 10/14/18 20:00 Urine pH 6.0 PH (5.0-7.5) 10/14/18 20:00 Ur Specific [place] 1.015 (1.002-1.030) 10/14/18 20:00 Urine Protein NEGATIVE mg/dL (NEGATIVE) 10/14/18 20:00 Urine Glucose (UA) NEGATIVE mg/dL (NEGATIVE) 10/14/18 20:00 Urine Ketones 15 mg/dL (NEGATIVE) H 10/14/18 20:00 Urine Occult Blood TRACE-INTA (NEGATIVE) 10/14/18 20:00 Urine Nitrite POSITIVE (NEGATIVE) H 10/14/18 20:00 Urine Bilirubin NEGATIVE (NEGATIVE) 10/14/18 20:00 Urine Urobilinogen 0.2 (NORMAL) E.U./dL (NORMAL) 10/14/18 20:00 Ur Leukocyte Esterase NEGATIVE (NEGATIVE) 10/14/18 20:00 Urine RBC 0-5 /HPF (0-5) 10/14/18 20:00 Urine WBC 0-3 /HPF (0-5) 10/14/18 20:00 Ur Squamous Epith Cells NONE SEEN (<= Few) 10/14/18 20:00 Urine Bacteria Rare /HPF (None Seen) 10/14/18 20:00 Ur Microscopic Review INDICATED 10/14/18 20:00 Urine Culture Comments INDICATED 10/14/18 20:00 Acetaminophen 90 ug/mL (10-30) H* 10/16/18 07:12 Hepatitis A IgM Ab NON-REACTIVE (NON-REACTIVE) 10/16/18 12:59 Hep Bs Antigen NON-REACTIVE (NON-REACTIVE) 10/16/18 12:59 Hep B Core IgM Ab NON-REACTIVE (NON-REACTIVE) 10/16/18 12:59 Hepatitis C Antibody NON-REACTIVE (NON-REACTIVE) 10/16/18 12:59 Hep C Ab Signal/Cutoff 0.00 (<1.00) 10/16/18 12:59 MRSA Surveill Initial NEGATIVE (NEGATIVE) 10/14/18 20:00 Blood Type O NEGATIVE 10/17/18 12:58 Antibody Screen NEGATIVE 10/17/18 12:58 - Procedures Procedures: Procedures EXCISION OF LEFT LOBE LIVER, OPEN APPROACH, DIAGNOSTIC (10/05/18) EXCISION OF MESENTERY, OPEN APPROACH (10/05/18) EXCISION OF TRANSVERSE COLON, OPEN APPROACH (10/05/18) RESECTION OF RIGHT LARGE INTESTINE, OPEN APPROACH (10/05/18)
--- NOTE | 2018-10-19 21:22 | DISCHARGE SUMMARY ---
Physician: Karrie Shafer MD DATE OF ADMISSION: 10/14/2018 DATE OF DISCHARGE: 10/19/2018 DATE OF : 10/19/2018 HISTORY OF PRESENT ILLNESS: This is a 63-year-old white female with a history of remote alcoholism, cachexia with weight loss of 37 pounds over the previous six months, who had an admission here less than one week previously when she had presented with nausea, vomiting and found to have small bowel obstruction and required surgery with findings of a tumor with intussusception and innumerable liver metastasis and lymph nodes. Pathology showed an adenocarcinoma. She had been home for approximately five days and starting nutrition and then developed abdominal pain with nausea and vomiting once again. She presented to the emergency room and workup found her to have air and fluid in the abdomen and pelvis and she was taken to the operating room from the emergency room and underwent exploratory laparotomy, required an ileostomy, she was admitted to the ICU with NG decompression, nutritional support, and empiric antibiotics. 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 She underwent an exploratory laparotomy with takedown of a necrotic anastomosis that had leakage into the peritoneum and required an end ileostomy. In the ICU, she was kept on empiric IV antibiotics and she had blood cultures and peritoneal fluid and urine cultures sent. The peritoneal fluid grew out Klebsiella, Escherichia coli and Strep Parasanguinous. The urine culture grew E. coli. Her IV antibiotics were adjusted according to sensitivities. She was started on TPN. At the third day of hospitalization, her liver function tests increased significantly from normal values of AST of 27 and ALT of 27, to AST of 1800 and ALT of 687, along with bilirubin of 3.1. She underwent CT imaging of the abdomen and pelvis and this showed significantly larger lesions where the previous liver metastases were seen. This was felt to be consistent with liver abscesses or rapidly growing metastases. The AST continued to rise to greater than 5200 and ALT 2648 and bilirubin 3.9. Throughout this time, she had negative bowel sounds and continued to have NG tube for decompression. She was seen on several occasions by the Palliative Care nurse practitioner who would explain the clinical situation and address her wishes for code status and aggressiveness of care. The patient continued to want to be a FULL CODE and planned aggressive medical management. As the liver function tests worsened, her INR became elevated to 5.7, 8.0 and 9.6, and she received FFP for treatment. A daughter and two sisters were involved in multiple discussions with the Palliative Care provider. The patient began to be more fatigued and confused and then somnolent. At that point, the family members agreed to change her code status to DNR. After an additional day of management, the family decided to change her management to comfort care. She was treated with IV morphine, and p.r.n. medications for comfort such as Roxanol and she also had discontinuation of lab draws, vital sign checks, IV antibiotics, fluids and peripheral TPN nutrition. The patient at 6:04 p.m. on 10/19/2018. cc: MD Dali Patiño ARNP Judye Scheidt, DO TD: 10/19/2018 19:32 MTDD
== END 2018-10-19 18:04 | disposition expired | DRG 329 ==
LOC: ED 10:46 → MS2 15:42 → ICU 19:32
PROVIDERS: ADMIT Internal Medicine; ATTEND Internal Medicine
PROC: 0DBB0ZZ Excision of Ileum, Open Approach (ICD-10-PCS; 2018-10-14)
PROC: 0D1B0Z4 Bypass Ileum to Cutaneous, Open Approach (ICD-10-PCS; principal; 2018-10-14 17:00)
PROC: 30233K1 Transfusion of Nonautologous Frozen Plasma into Peripheral Vein, Percutaneous Approach (ICD-10-PCS; 2018-10-17)
DX: K91.89 Other postprocedural complications and disorders of digestive system (principal); K55.041 Focal (segmental) acute infarction of large intestine; A41.51 Sepsis due to Escherichia coli [E. coli]; A40.8 Other streptococcal sepsis; A41.89 Other specified sepsis; K75.0 Abscess of liver; K72.00 Acute and subacute hepatic failure without coma; K65.8 Other peritonitis; R65.21 Severe sepsis with septic shock; N39.0 Urinary tract infection, site not specified; C18.9 Malignant neoplasm of colon, unspecified; C78.7 Secondary malignant neoplasm of liver and intrahepatic bile duct; C77.2 Secondary and unspecified malignant neoplasm of intra-abdominal lymph nodes; R64 Cachexia; Y83.2 Surgical operation with anastomosis, bypass or graft as the cause of abnormal reaction of the patient, or of later complication, without mention of misadventure at the time of the procedure; F41.9 Anxiety disorder, unspecified; R73.9 Hyperglycemia, unspecified; E86.0 Dehydration; E87.5 Hyperkalemia; I95.9 Hypotension, unspecified; I10 Essential (primary) hypertension; F10.21 Alcohol dependence, in remission; D63.0 Anemia in neoplastic disease; D50.9 Iron deficiency anemia, unspecified; F40.240 Claustrophobia; M41.9 Scoliosis, unspecified; Z51.5 Encounter for palliative care; Z66 Do not resuscitate; Z68.26 Body mass index [BMI] 26.0-26.9, adult; Z90.49 Acquired absence of other specified parts of digestive tract; Z79.82 Long term (current) use of aspirin; Z87.891 Personal history of nicotine dependence; Z85.528 Personal history of other malignant neoplasm of kidney
CPT/HCPCS: 36415; 71045; 72193; 74170; 74177; 80048; 80053; 80074; 80307; 81001; 81003; 83605; 83690; 83735; 84100; 84134; 84478; 84484; 85025; 85610; 86850; 86900; 86901; 87040; 87070; 87077; 87086; 87150; 87181; 87205; 96361; 96365; 96375; 99233; 99283; 99284